=== PATIENT | male | born 1965 | race Caucasian/White ===

== ENCOUNTER → 2017-06-27 10:40 | Outpatient (CLI) | payer OTHER, SELFPAY ==
[2017-06-27 12:27] LABS: Anion Gap 9 (5-15); BUN 11 mg/dL (7-18); BUN/Creat Ratio 10.3 RATIO (10-20); Calcium,Total 8.7 mg/dL (8.5-10.1); Chloride 100 mmol/L (98-107); Creatinine, Serum 1.07 mg/dL (0.70-1.30); EST Glomerular Filtration Rate 77 mL/min (>60); Est Glom Filt Rate - Afr Amer 93 mL/min (>60); Glucose 352 mg/dL (70-110); Potassium 3.9 mmol/L (3.5-5.1); Sodium Level 136 mmol/L (136-145)
[2017-06-27 12:30] LABS: Absolute Lymphocyte Count 1.69 X10^3/ul (0.83-4.51); Absolute Neutrophil Count 5.8 X10^3/uL (2.0-7.7); Basophil# 0.02 X10^3/uL; Basophil% 0.2 % (0-1); Eosinophil# 0.05 X10^3/uL; Eosinophils% 0.6 % (0-5); Hematocrit 45.8 % (40-54); Hemoglobin 16.3 g/dl (13.0-16.5); Lymphocyte # 1.69 X10^3/ul (4.0); Lymphocyte % 20.9 % (19-41); Mean Corp Hgb Conc 35.6 g/gl (32-36); Mean Corpuscular Hgb 29.4 pg (27.0-32.0); Mean Corpuscular Volume 82.7 fL (80-94); Mean Platelet Vol. 9.5 fl (6.2-12.0); Monocyte# 0.54 X10^3/uL; Monocyte% 6.7 % (0-10); Neutrophil # 5.76 X10^3/uL (2.7-7.7); Neutrophil % 71.2 % (47-70); Platelet Count 258 K/mm3 (150-450); RBC Distribution Width CV 13.5 % (11.6-14.6); RBC Distribution Width SD 40.4 fl (35.1-43.9); Red Blood Count 5.54 M/mm3 (4.6-6.2); White Blood Count 8.1 K/mm3 (4.4-11.0)
[2017-06-27 12:35] LABS: POSITIVE COUNT NO; POSITIVE DIFFERENTIAL NO; POSITIVE MORPHOLOGY NO
[2017-06-28 12:52] LABS: Carcinoembryonic Antigen 3.4 ng/mL (0.0-4.7)
== END ==
PROVIDERS: Family Provider Family Medicine; PCP Family Medicine; Visit Provider Surgery
DX: C18.9 Malignant neoplasm of colon, unspecified (principal)
CPT/HCPCS: 36415; 80048; 82378; 85025

== ENCOUNTER 2017-07-07 10:52 | Inpatient (IN) | payer OTHER, SELFPAY ==
--- NOTE | 2017-07-02 07:11 | EKG12_ITS ---
Test Reason : MI OP Blood Pressure : / mmHG Vent. Rate : 080 BPM Atrial Rate : 080 BPM P-R Int : 160 ms QRS Dur : 092 ms QT Int : 370 ms P-R-T Axes : 060 045 028 degrees QTc Int : 426 ms Normal sinus rhythm with sinus arrhythmia Normal ECG Confirmed by SAUMYA ALVARADO ([id number]), proposal editor SHAQUILLE LEE ([id number]) on 07/03/2017 11:38:26 AM Referred By: Wayne Turner Confirmed By:SAUMYA ALVARADO
[2017-07-02 08:22] LABS: Glucose 227 mg/dL (70-110)
[2017-07-02 08:33] LABS: Hemoglobin A1c 9.8 % (4.2-6.3)
[2017-07-07] VITALS (12 sets, daily range): BP systolic 120–149; BP diastolic 76–89; PULSE 73–99; RESP 14–19; TEMP 36.4–36.8; O2SAT 92–99; BMI 33.7
[2017-07-07 11:25] LABS: Bedside Glucose 214 mg/dL (70-110)
--- NOTE | 2017-07-07 12:55 | PCM.OPRPT ---
Problem List (1) Colon cancer Status: Acute Qualifiers: Colon location: sigmoid Qualified Code(s): C18.7 - Malignant neoplasm of sigmoid colon Report of Operation Date of Procedure: 07/07/17 Pre-Operative Diagnosis: Colon cancer Post-Operative Diagnosis: Same Surgery/Procedure Performed:: Cystoscopy and left ureteral catheter placement Description of Surgical Findings:: 51-year-old male taken back to the operating room at the smooth induction of general anesthesia he was placed in dorsal lithotomy position, the penis and testicles were prepped and draped in usual sterile fashion went into the bladder with a 21 [place]ic rigid cystourethroscope. The entire length of the urethra is normal the prostate was normal. Into the bladder no tumors or stones are seen in the bladder. The left and right ureteral orifices were normal. I think cannulated the left ureteral orifice and advanced a wire up into the left kidney left the Pollack catheter in place. I then placed a Soto catheter. Patient was then turned over to the surgeon. Type of Anesthesia:: General Drains: left ureteral catheter. - Admit VTE Documentation VTE Present on Admission: No VTE Mechan Device Prophylaxis: SCD's
[2017-07-07] MEDS: Bupivacaine Mpf 0.5% 30 ML VIAL (16:45)
--- NOTE | 2017-07-07 17:56 | PCM.OPRPT ---
Problem List (1) Colon cancer Status: Acute Qualifiers: Colon location: sigmoid Qualified Code(s): C18.7 - Malignant neoplasm of sigmoid colon Report of Operation Date of Procedure: 07/07/17 Pre-Operative Diagnosis: Colon cancer of the sigmoid Post-Operative Diagnosis: Same Surgery/Procedure Performed:: Laparoscopic sigmoid colectomy with primary anastomosis and splenic flexure release Type of Anesthesia:: General Specimen's removed: Sigmoid colon with stitch marking the proximal margin. Anastomotic donuts Estimated Blood Loss (mL): 50 Fluids Replaced: 3000 Description of Procedure: The patient was brought back to the operating room and general anesthesia was induced. The patient was placed in lithotomy position and urology placed a left ureteral stent. Next the rectum was lavaged with iodine and saline. Next the patient's perineal area as well as his abdomen was prepped and draped in usual sterile fashion. Using the Visiport 5 mm technique the abdomen was entered in the right upper quadrant. The abdomen was then insufflated to 15 mmHg and the camera was placed through this port. The abdomen was inspected. The liver looked good with no signs of metastasis. There is no carcinomatosis. The tattoo was identifiable in the sigmoid colon. The patient had adhesions to his prior mesh umbilical hernia repair. An 11 mm port was placed superior to the umbilicus. Electrocautery was used to separate the omental adhesions to the prior mesh. Next the patient was placed in steep Trendelenburg position and tilted to the right. The distal sigmoid was traced back until the tattoo was reached in the proximal sigmoid. The patient had a very redundant sigmoid colon. The sigmoid colon was elevated and electrocautery was used to make a window in the peritoneal reflection. The mesentery to the sigmoid colon was dissected but I was unable to find the ureter from this approach. The lateral attachment of the sigmoid colon was then divided and I was able to identify the ureter from this approach. The ureter was identified along its length and spared. Once the sigmoid colon was medialized the dissection was carried upward onto the descending colon. The colon was then dissected free at the sacral promontory. A 60 millimeter stapler was used to fire across the rectosigmoid junction. Next the colon was elevated and Enseal was used to take down the mesenteric attachments at the base of the mesentery. Once the inferior mesenteric artery was identified it was clipped with 10 mm hemo-lock clips and divided. Hemostasis was good. The dissection was taken upward until there was a good margin from the colon cancer. At this point the proximal margin would not reach into the pelvis so a splenic flexure release was performed. Downward pressure was based on the splenic flexure as electrocautery was used to separate the peritoneum and the splenic flexure was medialized. This allowed the proximal margin to be easily moved into the pelvis. I did have to place one 5 mm port in the left upper quadrant to facilitate the flexure mobilization. Next a small midline incision was made in the suprapubic space and deepened to the internal abdomen. A wound protector was placed in the wound and the specimen was brought through the wound. Once the proximal margin was identified it was cleaned and taken with scissors. Any remaining vascular attachments were taken with Enseal. The specimen was then sent for pathology. Next the descending colon was sized with sizers and a 29 EEA stapler was selected. The anvil was placed into the descending colon and a pursestring was created with Prolene suture. The descending colon and anvil were then allowed back into the abdomen and the wound protector was tied shut with a Dacron tape and the abdomen was reinsufflated. The abdomen was checked for hemostasis. Next the descending colon was checked to ensure that it was not twisted. The 29 EEA stapler was then placed through the rectum into the rectal staple line and the point was deployed. This was attached to the anvil and the stapler was closed. The stapler was then fired. The stapler was removed and air was insufflated into the colon with pressure being held over the descending colon until it inflated and air was coming out around the rigid scope. There was no air leak with water in the pelvis. Next the abdomen was irrigated and suctioned. There was good laxity of the descending colon to the pelvis and the anastomosis was under no tension. All of the ports were removed under direct visualization and had good hemostasis. The 11 mm ports were closed with 0 Vicryl suture and the midline incision was closed with 2 #1 PDS is meeting in the middle running in a continuous fashion. Next all ports were irrigated and the skin was closed with interrupted 4-0 Monocryl sutures, Steri-Strips, and bandages. The patient was taken to PACU at the end of the case. The patient tolerated the procedure well. The Soto remained in place but the ureter stent was removed at the end of the case. - Admit VTE Documentation VTE Mechan Device Prophylaxis: SCD's
[2017-07-07 18:21] LABS: Bedside Glucose 227 mg/dL (70-110)
[2017-07-07] MEDS: 0.9% NaCl Peripheral Flush Adult/Peds IV (20:22)
[2017-07-07] MEDS: HYDROmorphone 1 MG/ML Syringe IV ×2 (20:22→22:35)
[2017-07-07] MEDS: Lactated Ringers 1,000 ML 150 ML IV (22:19)
[2017-07-07] MEDS: Ketorolac 15 MG/ML Vial IV (22:20)
--- NOTE | 2017-07-08 | COL._PTH ---
PATIENT: SAUMYA LOW LOC: MS3 U#:[id number] AGE/SX: 51/M ROOM: NC305 RE07/07/[address]: Dr. Wayne Turner MD : 1965 BED: 1 DIS: 07/10/2017 SPEC #: [id number] RECD: 07/08/17 14:21 STATUS: JEAN PAUL CHRISTINA #: [id number] DAGOBERTO: 07/08/17 00:[address]: Wayne Turner DEPT: SURGICAL PATHOLOGY RECD BY: Deon Mcmanus ENTERED: 07/08/17 14:23 SP TYPE: COLON OTHR DR: Dr. Misha Schilling MD Tissues: A - Colon, NOS B - Colon Donuts C - Colon Donuts Procedures: Surgery Specimen Level III Surgery Specimen Level HEADER OPERATION: Laparoscopic sigmoid colectomy PRE-OP DIAGNOSIS: Malignant neoplasm of sigmoid colon TISSUE SUBMITTED: A ? Sigmoid colon, stitch valencia proximal margin, B ? Proximal donut (sigmoid), C ? Distal donut (rectal) MICROSCOPIC DIAGNOSIS A. Sigmoid colon, colectomy: Invasive moderately to poorly differentiated adenocarcinoma. Four out of 20 lymph nodes positive for metastatic carcinoma. B. Proximal donut: Colonic donut, no pathologic diagnosis. C. Distal donut: Colonic donut, no pathologic diagnosis. COLON CANCER SUMMARY: Specimen ? sigmoid colon Procedure ? sigmoidectomy Specimen length ? 23 cm Tumor site ? sigmoid colon Tumor size ? 2.5 x 2 x 0.8 cm Macroscopic tumor perforation ? not identified Histologic type - adenocarcinoma Histologic grade ? low grade (moderately differentiated). Histologic features suggestive of Microsatellite Instability: Intratumoral lymphocytic response (tumor infiltrating the lymphocytes) ? mild to moderate Peritumoral lymphocytic response (Crohn-like) - mild to moderate Tumor subtype and differentiation ? high histologic grade (poorly differentiated) ? present ~5% Mucinous tumor component and medullary component ? not seen Microscopic tumor extension ? Tumor invades muscularis propria. Margins ? margins uninvolved by invasive carcinoma. The tumor is 4.2 cm away from the closest proximal axial margin. Treatment effect ? no known presurgical therapy Lymph-Vascular invasion ? not identified Perineural invasion - not identified Tumor deposits - not identified Type of polyp in which invasive carcinoma arose - none identified Lymph nodes: Number of lymph nodes examined - 20 Number of lymph nodes involved - 4 Distant metastasis ? not applicable Additional pathologic findings ? none identified Ancillary studies: See microsatellite instability study by IHC ([id number]) for complete details. Negative (no loss of mismatch protein; no microsatellite instability detected). Immunohistochemistry Studies for Mismatch Repair Proteins: MLH1 - Intact nuclear positivity, tumor cells MSH2 - Intact nuclear positivity, tumor cells MSH6 - Intact nuclear positivity, tumor cells, focal and weak PMS2 - Intact nuclear positivity, tumor cells Mutational Analysis ? not performed PATHOLOGIC STAGE: pT2 pN2a Mx The above summary is in compliance with [employer] (CAP) Cancer Protocols Checklist and [place] [employer] Committee on Cancer (AJCC), Staging Manual, 8th Ed. SJ:stephanie 07/10/17 COMMENT A. The largest focus of metastatic carcinoma in the lymph node measures 0.8 cm in greatest dimension. Extranodal extension is not seen. Please make reference to previous specimen ([id number]) descending colon polyp at 40 cm with diagnosis of invasive well to moderate differentiated adenocarcinoma. This case is discussed with Dr. Turner on 07/10/17. Case has been reviewed in consultation with Dr. Watkins who concurs with the above diagnosis. IDC:AM MICROSCOPIC DESCRIPTION Slides are reviewed. GROSS DESCRIPTION A - Received in fixative is one container labeled with the patient's name and designated sigmoid colon. The specimen consists of a 23 cm segment of bowel with attached fibrofatty tissue. Located 4.2 cm from its closest (proximal) margin of excision is an indurated, firm, pacheco lesion measuring 2.5 x 2 x 0.8 cm. The serosa in the area of the mass is inked in black ink. Serial sections through the mass do not reveal involvement of bowel wall. Sections of the attached fibrofatty tissue reveal a number of nodules resembling lymph nodes. No other mucosal mass lesions are identified. The specimen is left in formalin for additional fixation. / AM:rg 07/08/17 Sections are submitted as follows: 1 ? proximal and distal mucosal margins (proximal inked), 2-5 ? tumor, totally submitted, 6 ? one bisected lymph node, 7-11, multiple lymph nodes in each cassette. / AM:rg 07/09/17 B - Received in fixative is one container labeled with the patient's name and designated proximal donut. The specimen consists of a mucosal donut measuring 1.8 cm in diameter and 1.5 cm in length. No mucosal mass lesions are identified. Oncology Coordinator sections are submitted in one cassette. / AM: 07/08/17 C - Received in fixative is one container labeled with the patient's name and designated distal donut. The specimen consists of a mucosal donut measuring 2.2 cm in diameter and 1 cm in length. No mucosal mass lesions are identified. Oncology Coordinator sections are submitted in one cassette. / AM: 07/08/17 TC:0 CPT: 54250, 81378 x2
--- NOTE | 2017-07-08 | IMM_PTH ---
PATIENT: SAUMYA LOW LOC: MS3 U#:[id number] AGE/SX: 51/M ROOM: MS305 RE07/07/[address]: Dr. Wayne Turner MD : 1965 BED: 1 DIS: 07/10/2017 SPEC #: [id number] RECD: 07/10/17 11:42 STATUS: JEAN PAUL REPuma #: [id number] DAGOBERTO: 07/08/17 00:[address]: Wayne Turner DEPT: IMMUNOHISTOCHEMISTRY RECD BY: Evelina Lloyd ENTERED: 07/10/17 11:47 SP TYPE: IMMUNO OTHR DR: Dr. Misha Schilling MD Tissues: A - Sigmoid colon biopsy Procedures: MSH2 (add) MLH-1 (add) MSH6 (add) Anti-PMS2 (add) TROY-2 (add) KI-67 (add) P53 (add) HER-2-FABRIZIO (initial) PHYSICIAN & INSTITUTION [place] [id number] SPECIMEN INFORMATION: Tissue Source: A ? Sigmoid colon Clinical Info: Malignant neoplasm of sigmoid colon Specimen Number: [id number] A2 CPT code: 92951, 23549 x7 METHODOLOGY: Deparaffinized sections of prefer/formalin-fixed tissue or PAP/DQ stained slides are incubated with monoclonal/polyclonal antibodies/oligonucleotide probes. Localization is made via biotin free immunoperoxidase method. Appropriate controls are performed and reacted as expected. Results on target cell population are indicated in the following table: RESULTS: ANTIBODY / CLONE RESULT Block A2 COLON CANCER PROFILE (Prognostic Markers) Ki-67 (30-9) positive, high P53 (DO-7) positive MSH2 (25D12) positive MSH6 (44) positive, focal and weak MLH-1 (M1) positive PMS2 ([id number]) positive TROY-2 (SP21) positive Her-2neu (CB11) negative These tests were developed and their performance characteristics determined by [facility]. They may not have been cleared or approved by the U.S. Food and Drug Administration. The FDA has determined that such clearance or approval is not necessary. INTERPRETATION: Sigmoid colon, colectomy: Invasive adenocarcinoma. Result of Microsatellite Instability Study: Negative (no loss of mismatch protein; no microsatellite instability detected). SJ:stephanie 07/11/17
[2017-07-08] MEDS: HYDROmorphone 1 MG/ML Syringe IV ×2 (00:37→09:52)
[2017-07-08] MEDS: Lactated Ringers 1,000 ML 150 ML IV ×2 (00:37→05:10)
[2017-07-08 00:41] VITALS: BP 117/72; PULSE 99; RESP 19; TEMP 36.4; O2SAT 95
[2017-07-08 00:51] LABS: Bedside Glucose 245 mg/dL (70-110)
[2017-07-08] MEDS: Ketorolac 15 MG/ML Vial IV ×3 (05:10→21:32)
[2017-07-08 05:17] VITALS: BP 129/71; PULSE 65; RESP 18; TEMP 36.4; O2SAT 96
[2017-07-08 06:30] LABS: Absolute Lymphocyte Count 1.41 X10^3/ul (0.83-4.51); Absolute Neutrophil Count 8.7 X10^3/uL (2.0-7.7); Basophil# 0.02 X10^3/uL; Basophil% 0.2 % (0-1); Hematocrit 40.5 % (40-54); Hemoglobin 13.9 g/dl (13.0-16.5); Lymphocyte # 1.41 X10^3/ul (4.0); Lymphocyte % 12.6 % (19-41); Mean Corp Hgb Conc 34.3 g/gl (32-36); Mean Corpuscular Hgb 29.1 pg (27.0-32.0); Mean Corpuscular Volume 84.9 fL (80-94); Monocyte# 1.08 X10^3/uL; Monocyte% 9.7 % (0-10); Neutrophil # 8.66 X10^3/uL (2.7-7.7); Neutrophil % 77.3 % (47-70); Platelet Count 214 K/mm3 (150-450); RBC Distribution Width CV 13.5 % (11.6-14.6); RBC Distribution Width SD 41.5 fl (35.1-43.9); Red Blood Count 4.77 M/mm3 (4.6-6.2); White Blood Count 11.2 K/mm3 (4.4-11.0)
[2017-07-08 06:38] LABS: POSITIVE COUNT NO; POSITIVE DIFFERENTIAL NO; POSITIVE MORPHOLOGY NO
[2017-07-08 06:50] LABS: Anion Gap 8 (5-15); BUN 14 mg/dL (7-18); Calcium,Total 8.2 mg/dL (8.5-10.1); Chloride 106 mmol/L (98-107); Creatinine, Serum 0.82 mg/dL (0.70-1.30); EST Glomerular Filtration Rate 104 mL/min (>60); Est Glom Filt Rate - Afr Amer 125 mL/min (>60); Estimated Creatinine Clearance 107.57 ml/min; Glucose 188 mg/dL (74-106); Magnesium 1.9 mg/dL (1.6-2.6); Potassium 4.2 mmol/L (3.5-5.1); Sodium Level 140 mmol/L (136-145)
[2017-07-08 07:05] LABS: Bedside Glucose 193 mg/dL (70-110)
--- NOTE | 2017-07-08 08:00 | PCM.PN.SRG ---
Patient Problems: Active and Suspected Problems (Last Reviewed 06/27/17 @ 08:47 by Briana Foster) Colon cancer (Acute) Subjective: Patient is doing well this morning. He reports that his pain is well controlled with pain medications. He did have vertigo after surgery. - Physical Exam General: Alert, Oriented x3, Cooperative, No apparent distress HEENT: Atraumatic Lungs: Normal air movement Cardiovascular: Regular rate, Regular Rhythm Abdomen: Soft, Non-Distended, Tender - Mild appropriate tenderness., - - Incisions are clean dry and intact. Extremities: No clubbing Skin: No rashes Musculoskeletal: No Muscle Wasting Neurological: Cranial nerves II-XII grossly intact Psych/Mental Status: Normal Affect Vital Signs Temp Pulse Resp BP Pulse Ox 97.6 F L 65 18 129/71 H 96 07/08/17 05:17 07/08/17 05:17 07/08/17 05:17 07/08/17 05:17 07/08/17 05:17 Oxygen Flow Rate 15 Oxygen Delivery Method Room Air Weight: 235 lb 7.259 oz Body Mass Index (BMI) 33.7 Finger Stick Blood Glucose 227 Intake and Output for Last 24 Hours 07/06/17 07/07/17 07/08/17 23:59 23:59 23:59 Intake Total 3200 / 3200 1764 / 1764 Output Total 450 / 450 750 / 750 Balance 2750 / 2750 1014 / 1014 Laboratory Tests Past 24 Hrs 07/08/17 07/08/17 05:53 05:53 WBC 11.2 H RBC 4.77 Hgb 13.9 Hct 40.5 MCV 84.9 MCH 29.1 MCHC 34.3 RDW 13.5 RDW Differential 41.5 Plt Count 214 MPV 9.0 Immature Gran % (Auto) 0.200 Neut % (Auto) 77.3 H Lymph % (Auto) 12.6 L [place] % (Auto) 9.7 Eos % (Auto) 0.0 Baso % (Auto) 0.2 Absolute Neuts (auto) 8.7 H Absolute Lymphs (auto) 1.41 Total Counted Not Reportable Sodium 140 Potassium 4.2 Chloride 106 Carbon Dioxide 26.0 Anion Gap 8 BUN 14 Creatinine 0.82 Estim Creat Clear Calc 107.57 Est GFR (MDRD) Af Amer 125 Est GFR (MDRD) Non-Af 104 BUN/Creatinine Ratio 17.0 Glucose 188 H Calcium 8.2 L Phosphorus 4.0 Magnesium 1.9 POC Glucose 07/08/17 07/08/17 07/07/17 05:07 00:33 18:11 POC Glucose 193 H 245 H 227 H 07/07/17 11:14 POC Glucose 214 H Assessment/Plan Active and Suspected Problems (Last Reviewed 06/27/17 @ 08:47 by Briana Foster) Colon cancer (Acute) 51-year-old male status post laparoscopic sigmoid colectomy for sigmoid colon cancer 1. The patient's urine output picked up overnight. Is also much more clear this morning. I will DC his Soto. 2. Continue pain control, PPI, SCDs, n.p.o./IV fluids. I will start Lovenox today. Await bowel function. 3. Encouraged ambulation and incentive spirometer use. Wayne Turner MD Pager: [facility] [address] [place] [address] Office:
--- NOTE | 2017-07-08 08:03 | PN.SURG_ITS ---
Patient Problems: Active and Suspected Problems (Last Reviewed 06/27/17 @ 08:47 by Briana Foster) Colon cancer (Acute) Subjective: Patient is doing well this morning. He reports that his pain is well controlled with pain medications. He did have vertigo after surgery. - Physical Exam General: Alert, Oriented x3, Cooperative, No apparent distress HEENT: Atraumatic Lungs: Normal air movement Cardiovascular: Regular rate, Regular Rhythm Abdomen: Soft, Non-Distended, Tender - Mild appropriate tenderness., - - Incisions are clean dry and intact. Extremities: No clubbing Skin: No rashes Musculoskeletal: No Muscle Wasting Neurological: Cranial nerves II-XII grossly intact Psych/Mental Status: Normal Affect Vital Signs Temp Pulse Resp BP Pulse Ox 97.6 F L 65 18 129/71 H 96 07/08/17 05:17 07/08/17 05:17 07/08/17 05:17 07/08/17 05:17 07/08/17 05:17 Oxygen Flow Rate 15 Oxygen Delivery Method Room Air Weight: 235 lb 7.259 oz Body Mass Index (BMI) 33.7 Finger Stick Blood Glucose 227 Intake and Output for Last 24 Hours 07/06/17 07/07/17 07/08/17 23:59 23:59 23:59 Intake Total 3200 / 3200 1764 / 1764 Output Total 450 / 450 750 / 750 Balance 2750 / 2750 1014 / 1014 Laboratory Tests Past 24 Hrs 07/08/17 07/08/17 05:53 05:53 WBC 11.2 H RBC 4.77 Hgb 13.9 Hct 40.5 MCV 84.9 MCH 29.1 MCHC 34.3 RDW 13.5 RDW Differential 41.5 Plt Count 214 MPV 9.0 Immature Gran % (Auto) 0.200 Neut % (Auto) 77.3 H Lymph % (Auto) 12.6 L [place] % (Auto) 9.7 Eos % (Auto) 0.0 Baso % (Auto) 0.2 Absolute Neuts (auto) 8.7 H Absolute Lymphs (auto) 1.41 Total Counted Not Reportable Sodium 140 Potassium 4.2 Chloride 106 Carbon Dioxide 26.0 Anion Gap 8 BUN 14 Creatinine 0.82 Estim Creat Clear Calc 107.57 Est GFR (MDRD) Af Amer 125 Est GFR (MDRD) Non-Af 104 BUN/Creatinine Ratio 17.0 Glucose 188 H Calcium 8.2 L Phosphorus 4.0 Magnesium 1.9 POC Glucose 07/08/17 07/08/17 07/07/17 05:07 00:33 18:11 POC Glucose 193 H 245 H 227 H 07/07/17 11:14 POC Glucose 214 H Assessment/Plan Active and Suspected Problems (Last Reviewed 06/27/17 @ 08:47 by Briana Foster) Colon cancer (Acute) 51-year-old male status post laparoscopic sigmoid colectomy for sigmoid colon cancer 1. The patient's urine output picked up overnight. Is also much more clear this morning. I will DC his Soto. 2. Continue pain control, PPI, SCDs, n.p.o./IV fluids. I will start Lovenox today. Await bowel function. 3. Encouraged ambulation and incentive spirometer use. Wayne Turner MD Pager: [facility] [address] [place] [address] Office:
[2017-07-08 08:50] VITALS: BP 139/68; PULSE 82; RESP 18; TEMP 36.6; O2SAT 96
[2017-07-08] MEDS: Pantoprazole Sodium 40 MG Tablet PO (09:45)
[2017-07-08] MEDS: 0.9% NaCl Peripheral Flush Adult/Peds IV ×2 (09:52→21:32)
--- NOTE | 2017-07-08 11:43 | CASEMGMT ---
RN MI Face to Face with patient for initial transition planning/care coordination assessment. RN CM introduced self and role at [facility]. Patient sitting in chair, alert and oriented with at bedside. Patient willing to participate in assessment and is able to answer all questions appropriately. Care providers, pharmacy, and demographics verified. See link attached. Patient wishes to discharge home, denies need for home health at this time. Patient states he has no further needs or concerns at this time. CM to follow for discharge planning needs that may arise. Disposition Plan: Patient to discharge home with family support and follow-up plan in place.
[2017-07-08] MEDS: Lactated Ringers 1,000 ML 100 ML IV ×2 (11:55→21:32)
[2017-07-08] MEDS: Enoxaparin 40 MG/0.4 ML Syringe SC (12:03)
[2017-07-08 12:11] LABS: Bedside Glucose 177 mg/dL (70-110)
[2017-07-08 14:14] VITALS: BP 132/82; PULSE 68; RESP 18; TEMP 36.6; O2SAT 98
[2017-07-08 18:19] VITALS: BP 138/84; PULSE 65; RESP 18; TEMP 37.3; O2SAT 98
[2017-07-08 19:15] LABS: Bedside Glucose 144 mg/dL (70-110)
[2017-07-08] MEDS: HYDROmorphone HCL 0.5 MG/0.5 ML SYRINGE IV ×2 (20:17→22:23)
[2017-07-08 20:27] VITALS: BP 150/85; PULSE 60; RESP 16; TEMP 36.6; O2SAT 100
[2017-07-09 00:35] VITALS: BP 132/76; PULSE 94; RESP 18; TEMP 36.9; O2SAT 97
--- NOTE | 2017-07-09 00:40 | NURSING ---
pt attempted to use urinal. no results at this time.
[2017-07-09] MEDS: Ketorolac 15 MG/ML Vial IV ×2 (06:08→13:53)
[2017-07-09] MEDS: Lactated Ringers 1,000 ML 100 ML IV ×2 (06:09→16:25)
[2017-07-09] MEDS: Enoxaparin 40 MG/0.4 ML Syringe SC (06:09)
[2017-07-09 06:13] VITALS: BP 151/88; PULSE 71; RESP 17; TEMP 36.9; O2SAT 100
[2017-07-09 06:21] LABS: Bedside Glucose 126 mg/dL (70-110)
[2017-07-09 06:21] LABS: Bedside Glucose 122 mg/dL (70-110)
[2017-07-09 06:41] LABS: Absolute Lymphocyte Count 1.65 X10^3/ul (0.83-4.51); Absolute Neutrophil Count 6.1 X10^3/uL (2.0-7.7); Basophil# 0.03 X10^3/uL; Basophil% 0.3 % (0-1); Eosinophil# 0.04 X10^3/uL; Eosinophils% 0.5 % (0-5); Hematocrit 38.1 % (40-54); Hemoglobin 13.3 g/dl (13.0-16.5); Lymphocyte # 1.65 X10^3/ul (4.0); Lymphocyte % 18.9 % (19-41); Mean Corp Hgb Conc 34.9 g/gl (32-36); Mean Corpuscular Hgb 29.6 pg (27.0-32.0); Mean Corpuscular Volume 84.9 fL (80-94); Mean Platelet Vol. 9.3 fl (6.2-12.0); Monocyte# 0.86 X10^3/uL; Monocyte% 9.9 % (0-10); Neutrophil # 6.12 X10^3/uL (2.7-7.7); Neutrophil % 70.2 % (47-70); Platelet Count 214 K/mm3 (150-450); RBC Distribution Width CV 13.6 % (11.6-14.6); RBC Distribution Width SD 41.2 fl (35.1-43.9); Red Blood Count 4.49 M/mm3 (4.6-6.2); White Blood Count 8.7 K/mm3 (4.4-11.0)
[2017-07-09 06:44] LABS: POSITIVE COUNT NO; POSITIVE DIFFERENTIAL NO; POSITIVE MORPHOLOGY NO
[2017-07-09 06:46] LABS: Anion Gap 8 (5-15); BUN 11 mg/dL (7-18); BUN/Creat Ratio 15.8 RATIO (10-20); Calcium,Total 8.3 mg/dL (8.5-10.1); Chloride 107 mmol/L (98-107); EST Glomerular Filtration Rate 126 mL/min (>60); Est Glom Filt Rate - Afr Amer 152 mL/min (>60); Estimated Creatinine Clearance 126.01 ml/min; Glucose 132 mg/dL (74-106); Potassium 3.4 mmol/L (3.5-5.1); Sodium Level 139 mmol/L (136-145)
--- NOTE | 2017-07-09 07:58 | PCM.PN.SRG ---
Patient Problems: Active and Suspected Problems (Last Reviewed 06/27/17 @ 08:47 by Briana Foster) Colon cancer (Acute) Subjective: Patient reports he is doing well. His pain is well controlled and he is ambulating well. He reports he is passing gas with no nausea vomiting and no bloating. He needed straight catheterization twice last night but repeat on his own this morning. Urine output was adequate. - Physical Exam General: Alert, Oriented x3, Cooperative Lungs: Normal air movement Cardiovascular: Regular rate, Regular Rhythm Abdomen: Soft, Non Tender, Non-Distended, Passing Flatus, - - Incisions are clean dry and intact Extremities: No clubbing Skin: No rashes Musculoskeletal: No Tenderness to Palpation of Joints or Extremities Neurological: Cranial nerves II-XII grossly intact Psych/Mental Status: Normal Affect, Appropriate Vital Signs Temp Pulse Resp BP Pulse Ox 98.4 F 71 17 151/88 H 100 07/09/17 06:13 07/09/17 06:13 07/09/17 06:13 07/09/17 06:13 07/09/17 06:13 Oxygen Flow Rate 15 Oxygen Delivery Method Room Air Weight: 235 lb 7.259 oz Body Mass Index (BMI) 33.7 Finger Stick Blood Glucose 227 Intake and Output for Last 24 Hours 07/07/17 07/08/17 07/09/17 23:59 23:59 23:59 Intake Total 3200 / 3200 3961 / 3961 1244 / 1244 Output Total 450 / 450 1650 / 1650 325 / 325 Balance 2750 / 2750 2311 / 2311 919 / 919 Laboratory Tests Past 24 Hrs 07/09/17 07/09/17 05:58 05:58 WBC 8.7 RBC 4.49 L Hgb 13.3 Hct 38.1 L MCV 84.9 MCH 29.6 MCHC 34.9 RDW 13.6 RDW Differential 41.2 Plt Count 214 MPV 9.3 Immature Gran % (Auto) 0.200 Neut % (Auto) 70.2 H Lymph % (Auto) 18.9 L [place] % (Auto) 9.9 Eos % (Auto) 0.5 Baso % (Auto) 0.3 Absolute Neuts (auto) 6.1 Absolute Lymphs (auto) 1.65 Total Counted Not Reportable Sodium 139 Potassium 3.4 L Chloride 107 Carbon Dioxide 24.0 Anion Gap 8 BUN 11 Creatinine 0.70 Estim Creat Clear Calc 126.01 Est GFR (MDRD) Af Amer 152 Est GFR (MDRD) Non-Af 126 BUN/Creatinine Ratio 15.8 Glucose 132 H Calcium 8.3 L POC Glucose 07/09/17 07/09/17 07/08/17 06:06 00:29 19:10 POC Glucose 126 H 122 H 144 H 07/08/17 12:01 POC Glucose 177 H Assessment/Plan Active and Suspected Problems (Last Reviewed 06/27/17 @ 08:47 by Briana Foster) Colon cancer (Acute) 51-year-old male with colon cancer status post laparoscopic sigmoid colectomy, POD 2 1. Hypokalemia--replaced 2. Diabetes--adjust sliding scale as needed. 3. Patient is having bowel function with no nausea or vomiting and no bloating. I will start a clear liquid diet. I will also start stool softeners. 4. Continue Lovenox, SCDs, ambulation, incentive spirometer, Protonix. 5. If patient tolerates clear liquid diet I will advance his diet tomorrow and start p.o. pain medications. Wayne Turner MD Pager: [facility] [address], [address] [address] Office:
[2017-07-09] MEDS: 0.9% NaCl Peripheral Flush Adult/Peds IV ×3 (08:38→13:53)
[2017-07-09] MEDS: Pantoprazole Sodium 40 MG Tablet PO (09:21)
[2017-07-09] MEDS: Docusate Sodium 100 MG Capsule PO ×2 (09:21→21:50)
[2017-07-09 10:00] VITALS: BP 147/88; PULSE 90; RESP 18; TEMP 37.1; O2SAT 96
[2017-07-09] MEDS: Acetaminophen 325 MG Tablet 650 MG PO (10:04)
[2017-07-09 11:11] LABS: Bedside Glucose 141 mg/dL (70-110)
[2017-07-09 15:40] VITALS: BP 144/82; PULSE 93; RESP 18; TEMP 37; O2SAT 97
[2017-07-09 15:51] LABS: Bedside Glucose 114 mg/dL (70-110)
[2017-07-09 20:47] VITALS: BP 145/85; PULSE 88; RESP 18; TEMP 37; O2SAT 98
[2017-07-09 22:16] LABS: Bedside Glucose 117 mg/dL (70-110)
[2017-07-09] MEDS: DiphenhydrAMINE 25 MG Capsule PO (22:56)
[2017-07-09] MEDS: HYDROmorphone HCL 0.5 MG/0.5 ML SYRINGE IV (22:56)
[2017-07-10] MEDS: Lactated Ringers 1,000 ML 100 ML IV (02:02)
[2017-07-10 02:04] VITALS: BP 122/70; PULSE 67; RESP 16; TEMP 37; O2SAT 98
[2017-07-10] MEDS: Acetaminophen 325 MG Tablet 650 MG PO (04:05)
[2017-07-10] MEDS: HYDROmorphone HCL 0.5 MG/0.5 ML SYRINGE IV (04:06)
[2017-07-10 05:56] LABS: Absolute Lymphocyte Count 1.78 X10^3/ul (0.83-4.51); Absolute Neutrophil Count 4.7 X10^3/uL (2.0-7.7); Basophil# 0.01 X10^3/uL; Basophil% 0.1 % (0-1); Eosinophils% 1.4 % (0-5); Hematocrit 34.2 % (40-54); Lymphocyte # 1.78 X10^3/ul (4.0); Lymphocyte % 24.5 % (19-41); Mean Corp Hgb Conc 35.1 g/gl (32-36); Mean Corpuscular Hgb 29.5 pg (27.0-32.0); Mean Platelet Vol. 9.2 fl (6.2-12.0); Monocyte# 0.71 X10^3/uL; Monocyte% 9.8 % (0-10); Neutrophil # 4.65 X10^3/uL (2.7-7.7); Neutrophil % 64.1 % (47-70); Platelet Count 210 K/mm3 (150-450); RBC Distribution Width CV 13.4 % (11.6-14.6); RBC Distribution Width SD 40.1 fl (35.1-43.9); Red Blood Count 4.07 M/mm3 (4.6-6.2); White Blood Count 7.3 K/mm3 (4.4-11.0)
[2017-07-10 06:03] LABS: POSITIVE COUNT NO; POSITIVE DIFFERENTIAL NO; POSITIVE MORPHOLOGY NO
[2017-07-10] MEDS: Enoxaparin 40 MG/0.4 ML Syringe SC (06:09)
[2017-07-10 06:20] LABS: Anion Gap 10 (5-15); BUN 6 mg/dL (7-18); BUN/Creat Ratio 10.1 RATIO (10-20); Calcium,Total 7.9 mg/dL (8.5-10.1); Chloride 107 mmol/L (98-107); Creatinine, Serum 0.59 mg/dL (0.70-1.30); EST Glomerular Filtration Rate 152 mL/min (>60); Est Glom Filt Rate - Afr Amer 184 mL/min (>60); Estimated Creatinine Clearance 149.51 ml/min; Glucose 106 mg/dL (74-106); Potassium 3.4 mmol/L (3.5-5.1); Sodium Level 141 mmol/L (136-145)
[2017-07-10 06:21] LABS: Bedside Glucose 107 mg/dL (70-110)
[2017-07-10 08:00] VITALS: BP 143/91; PULSE 63; RESP 16; TEMP 36.7; O2SAT 97
--- NOTE | 2017-07-10 08:43 | PN.SURG_ITS ---
Patient Problems: Active and Suspected Problems (Last Reviewed 06/27/17 @ 08:47 by Briana Foster) Colon cancer (Acute) Subjective: Patient is doing well with no nausea or vomiting. He tolerated a clear liquid diet and is passing flatus. His abdominal pain is well controlled. - Physical Exam General: Alert, Oriented x3, Cooperative Lungs: Normal air movement Cardiovascular: Regular rate, Regular Rhythm Abdomen: Soft, Non Tender, Non-Distended, - - Incisions are clean dry and intact Vital Signs Temp Pulse Resp BP Pulse Ox 98.6 F 67 16 122/70 H 98 07/10/17 02:04 07/10/17 02:04 07/10/17 02:04 07/10/17 02:04 07/10/17 02:04 Oxygen Flow Rate 15 Oxygen Delivery Method Room Air Weight: 235 lb 7.259 oz Body Mass Index (BMI) 33.7 Finger Stick Blood Glucose 227 Intake and Output for Last 24 Hours 07/08/17 07/09/17 07/10/17 23:59 23:59 23:59 Intake Total 3961 / 3961 3642 / 3642 1486 / 1486 Output Total 1650 / 1650 2050 / 2050 1500 / 1500 Balance 2311 / 2311 1592 / 1592 -14 / -14 Laboratory Tests Past 24 Hrs 07/10/17 07/10/17 05:28 05:28 WBC 7.3 RBC 4.07 L Hgb 12.0 L Hct 34.2 L MCV 84.0 MCH 29.5 MCHC 35.1 RDW 13.4 RDW Differential 40.1 Plt Count 210 MPV 9.2 Immature Gran % (Auto) 0.100 Neut % (Auto) 64.1 Lymph % (Auto) 24.5 Forest % (Auto) 9.8 Eos % (Auto) 1.4 Baso % (Auto) 0.1 Absolute Neuts (auto) 4.7 Absolute Lymphs (auto) 1.78 Total Counted Not Reportable Sodium 141 Potassium 3.4 L Chloride 107 Carbon Dioxide 24.0 Anion Gap 10 BUN 6 L Creatinine 0.59 L Estim Creat Clear Calc 149.51 Est GFR (MDRD) Af Amer 184 Est GFR (MDRD) Non-Af 152 BUN/Creatinine Ratio 10.1 Glucose 106 Calcium 7.9 L POC Glucose 07/10/17 07/09/17 07/09/17 06:12 21:49 15:44 POC Glucose 107 117 H 114 H 07/09/17 11:00 POC Glucose 141 H Assessment/Plan Active and Suspected Problems (Last Reviewed 06/27/17 @ 08:47 by Briana Foster) Colon cancer (Acute) 51-year-old male with colon cancer status post laparoscopic sigmoid colectomy POD 3 1. Patient tolerated clear liquid diet and still passing flatus with no nausea or vomiting or bloating. I will advance him to a soft diet. 2. Hypokalemia--replaced 3. Stop IV fluids. Patient is having good urine output and tolerating a diet. 4. Anticipate discharge this afternoon or tomorrow morning if the patient tolerates a regular diet and his pain is well controlled on p.o. medications only. Wayne Turner MD Pager: [facility] [address] [place] [address] Office:
[2017-07-10] MEDS: Docusate Sodium 100 MG Capsule PO (09:42)
[2017-07-10] MEDS: Pantoprazole Sodium 40 MG Tablet PO (09:43)
[2017-07-10] MEDS: oxyCODONE 5 MG Tablet PO ×2 (09:59→16:23)
[2017-07-10 11:01] LABS: Bedside Glucose 219 mg/dL (70-110)
[2017-07-10 14:00] VITALS: BP 145/89; PULSE 76; RESP 16; TEMP 36.9; O2SAT 100
--- NOTE | 2017-07-10 15:19 | PCM.DC.GS ---
Discharge Diet: Light diet - advance as tolerated Discharge Activity: May Not Drive - No driving for 4 days or while taking narcotic pain meds. May shower in (days): 1 Lifting Restrictions: 20 lbs for 2 weeks Call your doctor if your incision/area has: Continuous Slow Oozing, Sudden Increased Bleeding, Increased Pain/ Swelling, Increased Redness, Foul Smelling Discharge, Swelling at the incision site Call your doctor if you observe: Fever of 101 or Higher Suture Line Care: Avoid Pulling/Pushing, Avoid Pinching/Bending Cleanse incision/area with: Soap & Water Allergies/Adverse Reactions: Allergies No Known Allergies Allergy (Verified 06/30/17 12:13) Medications to take at Discharge Docusate Sodium [Colace] 100 mg PO BID #20 cap 07/10/17 Oxycodone [Oxyir] 5 - 10 mg PO Q4H PRN PRN 7 Days #40 tablet 07/10/17 The following prescriptions were given: Oxycodone [Oxyir] 5 - 10 mg PO Q4H PRN PRN 7 Days #40 tablet PRN Reason: Mod-Severe Pain (4-03/11) Docusate Sodium [Colace] 100 mg PO BID #20 cap Primary Care Physician: Misha Schilling MD [Primary Care Provider] - Please Follow Up With: Wayne Turner MD When: call tomorrow to make 2 week follow up appt [phone]
--- NOTE | 2017-07-10 15:48 | PCM.DC.SUM ---
Discharge Date and Diagnosis - Problem List Patient Problems: Active and Suspected Problems (Last Reviewed 06/27/17 @ 08:47 by Briana Foster) Colon cancer (Acute) Date of Admission: 07/07/17 Date of Discharge: 07/10/17 - Primary Discharge Diagnosis Active and Suspected Problems (Last Reviewed 06/27/17 @ 08:47 by Briana Foster) Colon cancer (Acute) Hospital Course and Treatment Operations: colectomy Procedures: None Summary of Care Provided: The patient is a 51 year old M who was admitted to the hospital after a laparoscopic sigmoid colectomy on 07/07. The following day he was bolused and straight catheterized but then he was having good urine output. On his second postoperative day he was tolerating a clear liquid diet and was passing flatus. On his third postoperative day advance him to a regular diet and he tolerated this well and had some small bowel movements. He was discharged home in stable condition on postop day 3. Discharge Diet: Light diet - advance as tolerated Discharge Activity: May Not Drive - No driving for 4 days or while taking narcotic pain meds. May shower in (days): 1 Call your doctor if your incision/area has: Continuous Slow Oozing, Sudden Increased Bleeding, Increased Pain/ Swelling, Increased Redness, Foul Smelling Discharge, Swelling at the incision site Call your doctor if you observe: Fever of 101 or Higher Suture Line Care: Avoid Pulling/Pushing, Avoid Pinching/Bending Cleanse incision/area with: Soap & Water Home Medications: Medications to take at Discharge Docusate Sodium [Colace] 100 mg PO BID #20 cap 07/10/17 Oxycodone [Oxyir] 5 - 10 mg PO Q4H PRN PRN 7 Days #40 tablet 07/10/17 Following Prescrptions Were Given to Patient: Oxycodone [Oxyir] 5 - 10 mg PO Q4H PRN PRN 7 Days #40 tablet PRN Reason: Mod-Severe Pain (-03/11) Docusate Sodium [Colace] 100 mg PO BID #20 cap Primary Care Physician: Misha Schilling MD [Primary Care Provider] - Please Follow Up With: Wayne Turner MD When: call tomorrow to make 2 week follow up appt [phone] Meaningful Use Info Meaningful Use Diagnoses (Choose all that apply): None applicable
[2017-07-10 15:51] LABS: Bedside Glucose 180 mg/dL (70-110)
== END 2017-07-10 16:35 | disposition home or self-care (01) | DRG 331 ==
LOC: ACINP 10:54 → MS3 11:37
PROVIDERS: Admitting Provider Surgery; Family Provider Family Medicine; PCP Family Medicine; Visit Provider Surgery
PROC: 0DBN4ZZ Excision of Sigmoid Colon, Percutaneous Endoscopic Approach (ICD-10-PCS; CPT 44204; principal; 2017-07-07 12:00)
DX: C18.7 Malignant neoplasm of sigmoid colon (principal); E11.9 Type 2 diabetes mellitus without complications; E87.6 Hypokalemia
CPT/HCPCS: 36415; 80048; 82947; 82962; 83036; 83735; 84100; 85025; 86850; 86900; 88304; 88309; 88341; 88342; 93005; J7040; J7120; A4216; C1769; J2405

== ENCOUNTER 2017-07-25 08:12 | Day surgery (SDC) | payer OTHER, SELFPAY ==
[2017-07-25] VITALS (7 sets, daily range): BP systolic 100–125; BP diastolic 64–74; PULSE 80–92; RESP 16; TEMP 36.1–37; O2SAT 93–100; BMI 33.3
[2017-07-25 08:56] LABS: Bedside Glucose 168 mg/dL (70-110)
[2017-07-25] MEDS: Cefazolin 2 GM in 0.9% Normal Saline 100 ML IV (09:28)
[2017-07-25] MEDS: Bupiv/Epi 0.5% Mpf 30 ML Vial (09:55)
--- NOTE | 2017-07-25 10:17 | PCM.OPRPT ---
Problem List (1) Encounter for adjustment or management of vascular access device Status: Acute Report of Operation Date of Procedure: 07/25/17 Pre-Operative Diagnosis: Stage III colon cancer need for vascular access device Post-Operative Diagnosis: Same Surgery/Procedure Performed:: Right chest port placement using right IJ with ultrasound and fluoroscopy guidance Description of Procedure: After obtaining informed consent patient was brought back to the operating room MAC anesthesia was induced and the right chest and neck were prepped in normal sterile fashion. Ultrasound was used to evaluate both IJ is in the right IJ was selected. Next, using a needle, the right IJ was accessed and a guidewire was passed on into the superior vena cava under fluoroscopy guidance. A small incision was made over the puncture site and the dilator introducer was placed over the guidewire. Next this was capped and the pocket was made for the port. 1% lidocaine with epinephrine was injected in the proposed port site. An incision was made with scalpel. Electrocautery was used to make a pocket under the skin and subcutaneous tissue. Hemostasis was obtained. Next, the catheter was tunneled up to the neck incision site and placed through the introducer. The peel-away introducer was removed and the position of the catheter was confirmed on fluoroscopy. Next, the catheter was trimmed and attached to the port with the locking device. Interrupted 2-0 PDS were used to anchor the port to the chest wall and then the port was placed inside the pocket. The pocket was then flushed with saline and the port irrigated with saline. There was good blood return and the port flushed easily. Next, heparin was injected into the port. The skin was closed with subcutaneous interrupted 3-0 Vicryl sutures and interrupted skin 3-0 nylon sutures. A single 3-0 Vicryl sutures placed under the skin at the neck incision site. Steri-Strips were placed as well as op sites. Patient tolerated procedure well, was taken to PACU in stable condition. Chest x-ray will be obtained. Grafts/Implants Used: 8 [place] PowerPort - Admit VTE Documentation VTE Mechan Device Prophylaxis: SCD's
--- NOTE | 2017-07-25 10:19 | DCINST_ITS ---
Discharge Diet: No Restrictions - Pain medication may cause nausea. You should typically eat light foods as you take your pain medication. Discharge Activity: Return to Normal Activity, May Shower - with your bandage in place in 1-2 days after surgery. DO NOT SHOWER WHEN YOUR PORT IS ACCESSED. Call your doctor if your incision/area has: Continuous Slow Oozing, Sudden Increased Bleeding, Increased Pain/ Swelling, Increased Redness Call your doctor if you observe: Fever of 101 or Higher Remove Dressing in (days):: 3 - When you remove the bandage, leave the steri- strips intact until they fall off. Allergies/Adverse Reactions: Allergies No Known Allergies Allergy (Verified 07/24/17 14:02) Medications to take at Discharge Acetaminophen [Tylenol Extra Strength] 500 mg PO Q4H PRN PRN 07/16/17 Metformin HCl [Glucophage] 1,000 mg PO BIDCM 07/16/17 Primary Care Physician: Misha Schilling MD [Primary Care Provider] - Please Follow Up With: Wayne Turner MD When: call to make 10 day suture removal appt [phone]
--- NOTE | 2017-07-25 10:25 | RAD_ITS ---
STUDY: X-RAY CHEST REASON FOR EXAM: Male, 51 years old. Port placement. TECHNIQUE: Single AP portable view of the chest. COMPARISON: None. FINDINGS: A right-sided sandra catheter has been placed. The tip is at the junction of the superior vena cava and right atrium. The lungs are clear and expanded. There is no demonstrated pleural abnormality. Normal size heart. Normal mediastinum and kranthi. Normal visualized pulmonary arteries. Normal visualized aortic arch and descending thoracic aorta. Normal visualized thoracic spine. Normal visualized ribs, clavicles, and shoulders. There is no demonstrated abnormality of the visualized soft tissue structures of the upper abdomen. RAD/CXR for Line Placement IMPRESSION: The tip of the catheter is at the junction of the spur vena cava and right atrium. Electronically Signed: Eliecer Poe MD at 11:17 EST Tel [phone], Service support ,
== END 2017-07-25 11:47 | disposition home or self-care (01) ==
LOC: SDC 08:13 → AC 08:15
PROVIDERS: Family Provider Family Medicine; PCP Family Medicine; Visit Provider Surgery
PROC: (CPT 36571; principal; 2017-07-25 09:35)
DX: Z45.2 Encounter for adjustment and management of vascular access device (principal); C18.7 Malignant neoplasm of sigmoid colon; K21.9 Gastro-esophageal reflux disease without esophagitis; E11.9 Type 2 diabetes mellitus without complications
CPT/HCPCS: 00532; 36571; 71045; 77001; 82962; J7120; C1788; J2405

== ENCOUNTER → 2017-07-28 13:52 | Outpatient (CLI) | payer OTHER, SELFPAY ==
--- NOTE | 2017-07-28 13:54 | CT_ITS ---
STUDY: CT CHEST WITH CONTRAST REASON FOR EXAM: Male, 51 years old. Colon cancer with resection, starts chemotherapy next week. Has port and previous appendectomy. RADIATION DOSAGE (If Supplied By Facility): CTDIvol = ( 14.47 ) mGy, DLP = ( 792.00 ) mGycm TECHNIQUE: Transaxial 2.5 mm imaging was performed following intravenous administration of 100 ml of Isovue-300 contrast material. Multiplanar coronal and sagittal images were reformatted. Individualized dose optimization techniques were used for this CT. COMPARISON: Chest x-ray 07/25/2017. FINDINGS: Right anterior chest wall port via right internal jugular vein with catheter tip over the cavoatrial junction. Minimal air in the port pocket. The lungs are normal. There is no demonstrated pleural abnormality. Normal heart and pericardium. Normal mediastinum. Normal hilar regions. Normal enhanced pulmonary arteries. Normal aorta arch and descending thoracic aorta. There are minimal degenerative changes of the thoracic spine. No destructive osseous lesions. There is no demonstrated abnormality of the visualized upper abdomen. CT/Chest WITH Contrast IMPRESSION: There is no acute cardiopulmonary disease. No sign of metastatic disease. Electronically Signed: Felicia Gabriel MD at 2:48 EST , Service support ,
== END ==
PROVIDERS: Family Provider Family Medicine; PCP Family Medicine; Visit Provider Internal Medicine Medical Oncology
DX: C18.7 Malignant neoplasm of sigmoid colon (principal)
CPT/HCPCS: 71260; Q9967

== ENCOUNTER → 2018-02-05 15:27 | Outpatient (CLI) | payer OTHER, SELFPAY | PROVIDERS: Family Provider Family Medicine; PCP Family Medicine; Visit Provider Internal Medicine Medical Oncology | DX: C18.7 Malignant neoplasm of sigmoid colon (principal) | CPT/HCPCS: 74176 ==

== ENCOUNTER → 2018-08-06 15:35 | Outpatient (CLI) | payer OTHER, SELFPAY ==
[2018-02-09 15:48] VITALS: BMI 32.7
[2018-06-08 17:00] VITALS: BMI 33.7
--- NOTE | 2018-08-06 15:37 | CT_ITS ---
STUDY: CT ABDOMEN AND PELVIS WITH CONTRAST REASON FOR EXAM: Male, 52 years old. Malignant neoplasm sigmoid colon. RADIATION DOSAGE (If Supplied By Facility): CTDIvol = ( 24.88 ) mGy, DLP = ( 1342.41 ) mGycm TECHNIQUE: Transaxial images were obtained from the dome of the diaphragm to the symphysis pubis with oral contrast. Gastrografin 15 Oral was administered. Sagittal and coronal images were reconstructed. Individualized dose optimization techniques were used for this CT. COMPARISON: February 05, 2018 FINDINGS: The visualized lung bases are unremarkable. The visualized portions of the heart are within normal limits. There is a tip of a catheter at the atriocaval junction. Normal liver. Normal gallbladder and extrahepatic biliary system. There is mild splenomegaly. Normal pancreas. Normal bilateral adrenal glands. Normal right kidney. Normal right ureter. There is a small contour abnormality along the lower pole of the left kidney thought to represent cysts. There are stable calcifications in the lower pole calyces. Normal left ureter. Normal visualized stomach. Normal small intestine. There is a surgical anastomosis in the lower sigmoid colon. The colon appears otherwise grossly normal. There are surgical clips in the region of the appendix consistent with a prior appendectomy. Normal abdominal aorta. Normal inferior vena cava. Normal retroperitoneum. Normal urinary bladder. Normal prostate and seminal vesicles. There are phleboliths in the pelvis without lymphadenopathy. No free air or free fluid seen within the peritoneal cavity. Normal abdominal wall. Normal osseous structures. CT/Abdomen/Pel W ORAL Cont Only IMPRESSION: 1. Stable surgical changes of the sigmoid colon. There is no evidence of recurrence or metastatic disease. 2. Mild splenomegaly. 3. No major interval change. Electronically Signed: Marquez Davis DO at 20:46 EST Tel [phone], Service support ,
== END ==
PROVIDERS: Family Provider Family Medicine; PCP Family Medicine; Referring Provider Internal Medicine Medical Oncology; Visit Provider Internal Medicine Medical Oncology
DX: C18.7 Malignant neoplasm of sigmoid colon (principal)
CPT/HCPCS: 74176

== ENCOUNTER 2018-09-04 07:46 | Day surgery (SDC) | payer OTHER, SELFPAY ==
[2018-08-18 13:54] VITALS: BMI 33.3
[2018-09-04 08:01] VITALS: BP 132/75; PULSE 84; RESP 18; TEMP 36.6; O2SAT 99; BMI 32.9
--- NOTE | 2018-09-04 09:00 | COLBX_PTH ---
PATIENT: SAUMYA LOW LOC: EN U#:[id number] AGE/SX: 52/M ROOM: RE09/04/[address]: Dr. Wayne Turner MD : 1965 BED: DIS: 09/04/2018 SPEC #: [id number] RECD: 09/04/18 10:25 STATUS: JEAN PAUL CHRISTINA #: [id number] DAGOBERTO: 09/04/18 09:[address]: Wayne Turner DEPT: SURGICAL PATHOLOGY RECD BY: Jordan Garcia ENTERED: 09/04/18 10:53 SP TYPE: COLON BX OTHR DR: Dr. Misha Schilling MD Tissues: A - Transverse colon B - COLON BIOPSY Procedures: Surgery Specimen Level IV HEADER OPERATION: Colonoscopy (MAC) PRE-OP DIAGNOSIS: History colon CA; follow up colonoscopy TISSUE SUBMITTED: A - Polyp transverse colon, B - Polyp hepatic flexure MICROSCOPIC DIAGNOSIS A. Transverse colon polyp, biopsy: Tubular adenoma. B. Hepatic flexure polyp, biopsy: Tubular adenoma. AM:stephanie 09/07/18 COMMENT Case has been reviewed in consultation with Dr. Mendez who concurs with the above diagnosis. IDC:PRASANNA MICROSCOPIC DESCRIPTION Slides are reviewed. GROSS DESCRIPTION A - Received in fixative is one container labeled with the patient's name and designated transverse colon polyp. The specimen consists of multiple irregular fragments of light pacheco soft tissue that in aggregate measure 0.8 x 0.5 x 0.2 cm. The specimen is totally submitted in one cassette. B - Received in fixative is one container labeled with the patient's name and designated hepatic flexure polyp. The specimen consists of multiple irregular fragments of light pacheco soft tissue that in aggregate measure 0.8 x 0.6 x 0.2 cm. The specimen is totally submitted in one cassette. / PRASANNA:stephanie 09/04/18 TC:5 CPT: 86081 x2
--- NOTE | 2018-09-04 09:30 | OP.ENDO_ITS ---
09/04/2018 Misha Schilling [address] [place] [address] Re : Colonoscopy procedure for Wilmar Santos Dear Dr. Schilling This procedure was performed on Tuesday, September 04, 2018. My impressions and recommendations are as follows: Impressions : - Two polyps in the transverse colon and at the hepatic flexure, removed with a hot snare. Resected and retrieved. Recommendations : - Discharge patient to home. - Resume previous diet. - Continue present medications. - Await pathology results. - Repeat colonoscopy in 1 year for surveillance. My findings are described in the full procedure note, which is enclosed. If I can be of further assistance, please feel free to contact me at Doctor phone number(s): , Work: . Sincerely, Wayne Turner MD 09/04/2018 9:30:20 AM This report has been signed electronically.
[2018-09-04 09:32] VITALS: BP 132/75; BP 92/72; PULSE 93; RESP 18; TEMP 36; O2SAT 97
[2018-09-04 09:35] VITALS: BP 104/74; BP 132/75; PULSE 93; RESP 16; O2SAT 97
[2018-09-04 09:40] VITALS: BP 107/67; BP 132/75; PULSE 86; RESP 16; O2SAT 97
[2018-09-04 09:41] LABS: Bedside Glucose 299 mg/dL (70-110)
[2018-09-04 09:45] VITALS: BP 109/77; BP 132/75; PULSE 84; RESP 16; TEMP 36.7; O2SAT 98
[2018-09-04 10:24] VITALS: BP 132/75
== END 2018-09-04 10:26 | disposition home or self-care (01) ==
LOC: EN 07:46 → AC 07:47
PROVIDERS: Family Provider Family Medicine; PCP Family Medicine; Referring Provider Family Medicine; Visit Provider Surgery
PROC: 0DJD8ZZ Inspection of Lower Intestinal Tract, Via Natural or Artificial Opening Endoscopic (ICD-10-PCS; CPT 45378; principal; 2018-09-04 08:55)
DX: D12.3 Benign neoplasm of transverse colon (principal); Z85.038 Personal history of other malignant neoplasm of large intestine; E11.9 Type 2 diabetes mellitus without complications; K21.9 Gastro-esophageal reflux disease without esophagitis; Z79.899 Other long term (current) drug therapy; R42 Dizziness and giddiness; Z87.442 Personal history of urinary calculi
CPT/HCPCS: 45385; 82962; 88305; J7120

== ENCOUNTER → 2019-02-04 17:19 | Outpatient (CLI) | payer OTHER, SELFPAY ==
--- NOTE | 2019-02-04 17:28 | CT_ITS ---
STUDY: CT ABDOMEN AND PELVIS WITH CONTRAST REASON FOR EXAM: Male, 53 years old. Colon cancer surveillance. TECHNIQUE: Transaxial images were obtained from the dome of the diaphragm to the symphysis pubis with oral contrast. 100ml IV/Oral Isovue 300 was administered. Sagittal and coronal images were reconstructed. Individualized dose optimization techniques were used for this CT. COMPARISON: 08/06/2018 CT abdomen pelvis. FINDINGS: Partially visualized lower chest: [Lung bases unremarkable.] Liver: [No concerning lesions.] Gallbladder and biliary tree: No visible gallstones. No pericholecystic inflammation. No biliary ductal dilation. Pancreas: No pancreatic lesions or inflammation. Spleen: Normal size, no splenic lesions. Adrenal glands: No concerning masses. Kidneys and ureters: Right kidney normal. Small focus of scarring upper pole left kidney. Incidental small cyst lower pole left kidney. 2 nonobstructing stones lower pole left kidney, largest 5 mm diameter. Bowel: [Prior appendectomy.] No obstruction or inflammation of the bowel. Prior partial sigmoid colon resection with anastomosis in the upper pelvis. Urinary bladder: No stones or wall thickening. Reproductive:Normal size prostate. Vascular: No abdominal aortic aneurysm. Retroperitoneal and peritoneal spaces: No ascites or free air. No retroperitoneal lesions. Mild stranding in adenopathy in the superior mesenteric fat which is chronic and unchanged. No other adenopathy. Osseous: No acute osseous abnormality. No suspicious osseous lesions. Abdominal and pelvic wall: No concerning findings. Chronic postoperative changes anteriorly with mesh deep to the umbilicus. CT/Abdomen/Pelvis WITH Contrast IMPRESSION: No acute or concerning findings. No evidence of recurrence or metastatic disease. No concerning interval change. Electronically Signed: Mushtaqedmund Preston, at 22:23 EDT Tel , Service support ,
[2019-02-04 17:43] LABS: Absolute Lymphocyte Count 2.19 X10^3/uL (0.83-4.51); Absolute Neutrophil Count 5.6 X10^3/uL (2.0-7.7); Basophil# 0.05 X10^3/uL; Basophil% 0.6 % (0-1); Eosinophil# 0.08 X10^3/uL; Eosinophils% 0.9 % (0-5); Hematocrit 45.3 % (40-54); Hemoglobin 16.1 g/dL (13.0-16.5); Lymphocyte # 2.19 X10^3/ul (4.0); Lymphocyte % 25.6 % (19-41); Mean Corp Hgb Conc 35.5 g/dL (32-36); Mean Corpuscular Hgb 29.7 pg (27.0-32.0); Mean Corpuscular Volume 83.6 fL (80-94); Mean Platelet Vol. 8.9 fl (6.2-12.0); Monocyte# 0.57 X10^3/uL; Monocyte% 6.7 % (0-10); NRBC Flagged by Analyzer 0 % (0-5); Neutrophil # 5.64 X10^3/uL (2.7-7.7); Neutrophil % 65.8 % (47-70); Platelet Count 200 K/mm3 (150-450); RBC Distribution Width CV 12.7 % (11.6-14.6); RBC Distribution Width SD 38.5 fl (35.1-43.9); Red Blood Count 5.42 M/mm3 (4.6-6.2); White Blood Count 8.6 K/mm3 (4.4-11.0)
[2019-02-04 17:58] LABS: ALB/GLOB Ratio 0.9 RATIO (0.9-2.4); AST(SGOT) 22 U/L (15-37); Alanine Aminotransfer ALT/SGPT 38 U/L (16-61); Albumin, Serum 3.5 g/dL (3.2-5.0); Alkaline Phosphatase 144 U/L (45-117); Anion Gap 7 (5-15); BUN 15 mg/dL (7-18); BUN/Creat Ratio 16.9 RATIO (10-20); Calcium,Total 9.1 mg/dL (8.5-10.1); Chloride 101 mmol/L (98-107); Creatinine, Serum 0.89 mg/dL (0.70-1.30); EST Glomerular Filtration Rate 95 mL/min (>60); Est Glom Filt Rate - Afr Amer 115 mL/min (>60); Globulin 4.1 g/dL (2.2-4.2); Glucose 285 mg/dL (74-106); Protein, Total 7.6 g/dL (6.4-8.2); Sodium Level 135 mmol/L (136-145)
[2019-02-06 14:09] LABS: Carcinoembryonic Antigen 1.7 ng/mL (0.0-4.7)
== END ==
PROVIDERS: Family Provider Family Medicine; PCP Family Medicine; Referring Provider Internal Medicine Medical Oncology; Visit Provider Internal Medicine Medical Oncology
DX: C18.7 Malignant neoplasm of sigmoid colon (principal)
CPT/HCPCS: 36415; 74177; 80053; 82378; 85025; Q9967

== ENCOUNTER 2019-04-27 03:48 | Emergency (ER) | payer BC, SELFPAY ==
[2019-02-09 15:04] VITALS: BMI 33.4
[2019-04-27 03:49] VITALS: BP 183/104; PULSE 114; RESP 17; TEMP 36.3; O2SAT 100; BMI 33.7
--- NOTE | 2019-04-27 03:54 | CT_ITS ---
STUDY: CT ABDOMEN AND PELVIS WITHOUT CONTRAST REASON FOR EXAM: Male, 53 years old. RADIATION DOSAGE (If Supplied By Facility): CTDIvol = ( 15.97 ) mGy, DLP = ( 909.49 ) mGycm TECHNIQUE: Transaxial images were obtained from the dome of the diaphragm to the symphysis pubis without oral contrast, and without intravenous contrast. Sagittal and coronal images were reconstructed. Individualized dose optimization techniques were used for this CT. COMPARISON: 02/04/2019. FINDINGS: The visualized lung bases are unremarkable. The visualized portions of the heart are within normal limits. Normal liver. Normal gallbladder and extrahepatic biliary system. Normal spleen. Normal pancreas. Normal bilateral adrenal glands. Normal right kidney. There is minimal left perinephric stranding and mild left hydronephrosis due to a 4.2 mm stone within the proximal left ureter, located 3.5 cm below the UP junction. There is a 1.2 mm stone within the lower pole of the left kidney. Remainder of the left kidney is normal. Normal visualized stomach. Normal small intestine. Normal colon. There are surgical clips in the region of the appendix consistent with a prior appendectomy. Normal abdominal aorta. Normal inferior vena cava. Normal retroperitoneum. Normal urinary bladder. Normal visualized prostate gland. Normal abdominal wall. Normal osseous structures. CT/Abdomen/Pelvis without Cont IMPRESSION: Mild left hydronephrosis due to a 4.2 mm stone within the proximal left ureter, 3.5 cm below the UP junction. 1.2 mm stone within the lower pole of the left kidney. Status post appendectomy. No bowel obstruction. Electronically Signed: Anitha Cheatham MD at 5:13 EST , Service support ,
[2019-04-27 03:55] VITALS: PULSE 84; RESP 19; O2SAT 100
--- NOTE | 2019-04-27 03:58 | ED.DCSUM_ITS ---
History of Present Illness Chief Complaint: Abd Pain Informant: Patient Onset: Today Context: Gradual Onset Timing: Continuous Current Severity: Moderate Maximum Severity: Severe Narrative: The patient is a 53-year-old male with medical history significant for colon cancer who is not undergoing any current treatment, kidney stone, and prior colectomy 2 years ago who presents to the emergency department with left lower quadrant pain. Patient states his pain began at about 2 this morning. He described it as a dull ache. Since then, is worsened. He states sometimes he goes to his back. He was acutely nauseated without vomiting. He denies any dysuria or hematuria. He moves his bowels normally yesterday. He has no history of bowel obstruction. He states he is otherwise been in his normal state of health. Prior similar symptoms: Yes Recent Illness/Hospitalization: No Past Medical History - Allergies and Home Meds Allergies/Adverse Reactions: Allergies No Known Allergies Allergy (Verified 02/09/19 14:59) Primary Care Physician: Santos Monreal MD [STAFF PHYSICIAN] - Prior records reviewed: Yes Past Medical History: - - Kidney stone, colon cancer Surgical History: - - Umbilical hernia repair with mesh Smoking Status: Never smoker - Family History Maternal Family History: Family History (Last Reviewed 02/09/19 @ 14:59 by Shanta Lopes) Mother Diabetes CVA (cerebral vascular accident) Father Diabetes Hypertension Family History: Reports: Hypertension, Stroke Review of Systems General: Denies: Chills, Fever, Sweats Eyes: Denies: Visual changes - bilaterally, Diplopia ENT: Denies: Rhinorrhea, Sore throat Cardiovascular: Denies: Chest pain, Palpitations Respiratory: Denies: Dyspnea, Cough, Dyspnea on exertion Gastrointestinal: Reports: Abdominal pain, Nausea. Denies: Vomiting, Diarrhea, Melena, Hematochezia Genitourinary: Denies: Dysuria, Hematuria, Frequency Musculoskeletal: Denies: Back pain, Extremity Pain Skin: Denies: Rash, Wounds Neurological: Denies: Headache, Weakness, Numbness Physical Exam Vital Signs/Narrative: Vital Signs Temp Pulse Resp BP Pulse Ox 04/27/19 03:55 84 19 H 100 04/27/19 03:49 97.3 F L 114 H 17 183/104 H 100 Inital Vital Signs reviewed: Yes General: Well nourished, Well developed, No Acute Distress Head: Normocephalic, Atraumatic Eyes: Perrl, EOMI ENT: Moist mucous membranes, No rhinorrhea Neck: Supple, Nontender Cardiovascular: Regular rate, Regular rhythm, No murmurs Respiratory: No distress, CTA bilaterally, Chest nontender Abdomen: Soft, Nontender, Nondistended, Normal bowel sounds Back: Nontender, Normal Inspection Extremities: Nontender, No edema Skin: Normal color, No rash Neurological: Alert, Oriented x3, Cranial nerves II-XII grossly intact, Normal Strength, Normal Sensation Psychological: Normal affect, Normal Mood Diagnostic/Tx/Re-eval Abnormal Lab Results 04/27/19 04/27/19 03:56 03:56 WBC 10.3 RBC 5.69 Hgb 16.6 H Hct 47.5 MCV 83.5 MCH 29.2 MCHC 34.9 RDW Std Deviation 39.4 RDW Coeff of Gwen 13.1 Plt Count 233 MPV 9.2 Immature Gran % (Auto) 0.400 Neut % (Auto) 61.9 Lymph % (Auto) 27.1 Jackson % (Auto) 8.7 Eos % (Auto) 1.1 Baso % (Auto) 0.8 Absolute Neuts (auto) 6.4 Absolute Lymphs (auto) 2.80 Nucleated RBC % 0 Sodium 138 Potassium 3.9 Chloride 104 Carbon Dioxide 28.0 Anion Gap 6 BUN 11 Creatinine 0.95 Estim Creat Clear Calc 90.72 Est GFR (MDRD) Af Amer 105 Est GFR (MDRD) Non-Af 87 BUN/Creatinine Ratio 11.5 Glucose 195 H Calcium 9.1 Total Bilirubin 0.90 AST 33 ALT 46 Alkaline Phosphatase 118 H Total Protein 7.5 Albumin 3.6 Globulin 3.9 Albumin/Globulin Ratio 0.9 Clinical Impression(s) from Imaging Studies Abdomen/Pelvis CT 04/27/19 03:54 IMPRESSION: Mild left hydronephrosis due to a 4.2 mm stone within the proximal left ureter, 3.5 cm below the UP junction. 1.2 mm stone within the lower pole of the left kidney. Status post appendectomy. No bowel obstruction. Electronically Signed: Anitha Cheatham MD at 5:13 EST , Service support , - Medical Decision Making The patient presents with sudden onset abdominal pain, nausea, and vomiting. He does have history of kidney stone, but also has history of prior colon cancer with resection. I cannot re-create his pain on examination. IV was established. The patient's pain and nausea were addressed and he was feeling improved. Labs were relatively unremarkable. CT does demonstrate a proximal obstructing stone. It is measured as 4.2 mm. The patient is currently pain- free. I did discuss his case with Dr. Monreal, who is in agreement for outpatient follow-up. The patient will be treated with antiemetics and analgesics. He will call urology today to be seen as an outpatient. He was also counseled on concerning symptoms and reasons to return. Impression 1. 4 mm left-sided obstructing kidney stone ED Disposition - Plan for ED Patient: Instructions: KIDNEY STONE w/ Colic Prescriptions: Tamsulosin HCl [Flomax] 0.4 mg PO DAILY #7 cap Prescription Printed Oxycodone HCl/Acetaminophen [Percocet 5/325] 1 tab PO Q6H PRN PRN 3 Days #12 tab PRN Reason: Pain Prescription Printed Ondansetron [Zofran Odt] 4 mg PO Q8H PRN PRN #10 tab PRN Reason: Nausea Prescription Printed Referrals: Santos Monreal MD [STAFF PHYSICIAN] -
[2019-04-27 04:02] LABS: Absolute Neutrophil Count 6.4 X10^3/uL (2.0-7.7); Basophil# 0.08 X10^3/uL; Basophil% 0.8 % (0-1); Eosinophil# 0.11 X10^3/uL; Eosinophils% 1.1 % (0-5); Hematocrit 47.5 % (40-54); Hemoglobin 16.6 g/dL (13.0-16.5); Lymphocyte % 27.1 % (19-41); Mean Corp Hgb Conc 34.9 g/dL (32-36); Mean Corpuscular Hgb 29.2 pg (27.0-32.0); Mean Corpuscular Volume 83.5 fL (80-94); Mean Platelet Vol. 9.2 fl (6.2-12.0); Monocyte% 8.7 % (0-10); NRBC Flagged by Analyzer 0 % (0-5); Neutrophil % 61.9 % (47-70); Platelet Count 233 K/mm3 (150-450); RBC Distribution Width CV 13.1 % (11.6-14.6); RBC Distribution Width SD 39.4 fl (35.1-43.9); Red Blood Count 5.69 M/mm3 (4.6-6.2); White Blood Count 10.3 K/mm3 (4.4-11.0)
[2019-04-27] MEDS: 0.9% Normal Saline 1,000 ML 1000 ML IV (04:03)
[2019-04-27] MEDS: Morphine 4 MG/ML Syringe IV (04:04)
[2019-04-27] MEDS: Ketorolac 30 MG/ML Syringe IV (04:06)
[2019-04-27] MEDS: Ondansetron 4 MG/2 ML Vial IV (04:06)
[2019-04-27 04:19] LABS: ALB/GLOB Ratio 0.9 RATIO (0.9-2.4); AST(SGOT) 33 U/L (15-37); Alanine Aminotransfer ALT/SGPT 46 U/L (16-61); Albumin, Serum 3.6 g/dL (3.2-5.0); Alkaline Phosphatase 118 U/L (45-117); Anion Gap 6 (5-15); BUN 11 mg/dL (7-18); BUN/Creat Ratio 11.5 RATIO (10-20); Calcium,Total 9.1 mg/dL (8.5-10.1); Chloride 104 mmol/L (98-107); Creatinine, Serum 0.95 mg/dL (0.70-1.30); EST Glomerular Filtration Rate 87 mL/min (>60); Est Glom Filt Rate - Afr Amer 105 mL/min (>60); Estimated Creatinine Clearance 90.72 ml/min; Globulin 3.9 g/dL (2.2-4.2); Glucose 195 mg/dL (74-106); Potassium 3.9 mmol/L (3.5-5.1); Protein, Total 7.5 g/dL (6.4-8.2); Sodium Level 138 mmol/L (136-145)
[2019-04-27 04:51] LABS: Mucous, Urine 0 SEEN /hpf (<or=2+)
[2019-04-27 04:52] LABS: Color, Urine Yellow (Yellow); Glucose, Dipstick 1000 mg/dl (Normal); Ketone-Dipstick 5 mg/dl (Negative); Leukocyte Esterase-Dipstick 25 /ul (Negative); Nitrite-Dipstick Negative (Negative); Occult Blood-Urine 250 /ul (Negative); Protein-Dipstick 30 mg/dl (Negative); Urine Bilirubin Dipstick Negative (Negative); Urine Clarity Cloudy (Clear); Urine Urobilinogen 1 mg/dl (Normal)
[2019-04-27 04:58] LABS: Bacteria 2+ /hpf (None Seen); Red Blood Cells-Urine 25-50 SEEN /hpf (0-5)
[2019-04-27 04:59] LABS: Squamous Epithelial Cells - UA 0-5 SEEN /hpf (0-5); White Blood Cells 0-5 SEEN /hpf (0-5)
[2019-04-27 05:34] VITALS: BP 135/76; PULSE 86; RESP 16; O2SAT 96
== END 2019-04-27 05:35 | disposition home or self-care (01) ==
PROVIDERS: Emergency Provider Emergency Medicine; Family Provider Family Medicine; PCP Family Medicine
DX: N13.2 Hydronephrosis with renal and ureteral calculous obstruction (principal); Z85.038 Personal history of other malignant neoplasm of large intestine
CPT/HCPCS: 74176; 80053; 81001; 85025; 87086; 87088; 99282; J7030; A4216; J2405

== ENCOUNTER 2019-04-28 13:31 | Day surgery (SDC) | payer BC, SELFPAY ==
[2019-04-27 03:49] VITALS: BMI 33.7
[2019-04-28 13:47] VITALS: BP 145/90; PULSE 82; RESP 16; TEMP 36.2; O2SAT 98; BMI 33.8
[2019-04-28] MEDS: Lactated Ringers 1,000 ML 100 ML IV (13:56)
[2019-04-28 14:06] LABS: Bedside Glucose 155 mg/dL (70-110)
[2019-04-28] MEDS: Ketorolac 15 MG/ML Vial IV (15:36)
--- NOTE | 2019-04-28 15:39 | DCINST_ITS ---
Discharge Diet: Light diet - advance as tolerated Discharge Activity: Return to Normal Activity Call your doctor if you observe: Fever of 101 or Higher Instructions: Treating Kidney Stones: Ureteroscopic Stone Removal Allergies/Adverse Reactions: Allergies No Known Allergies Allergy (Verified 04/28/19 13:39) Medications to take at Discharge Metformin HCl 1,000 mg PO BREAKFAST 02/09/19 Ondansetron [Zofran Odt] 4 mg PO Q8H PRN PRN #10 tab 04/27/19 Oxycodone HCl/Acetaminophen [Percocet 5/325] 1 tab PO Q6H PRN PRN 3 Days #12 tab 04/27/19 Tamsulosin HCl [Flomax] 0.4 mg PO DAILY #7 cap 04/27/19 metFORMIN HCl [Glucophage] 500 mg PO QHS 04/27/19 Ciprofloxacin [Cipro] 500 mg PO BID #6 tab 04/28/19 Hydrocodone/Acetaminophen [[place] 5-325 Tablet] 1 ea PO Q4H PRN PRN #14 tab 04/28/19 Phenazopyridine [Pyridium] 100 mg PO TID #14 tab 04/28/19 The following prescriptions were given: Ciprofloxacin [Cipro] 500 mg PO BID #6 tab Prescription Printed Hydrocodone/Acetaminophen [[place] 5-325 Tablet] 1 ea PO Q4H PRN PRN #14 tab PRN Reason: Pain Score 1-10/10 Prescription Printed Phenazopyridine [Pyridium] 100 mg PO TID #14 tab Prescription Printed Primary Care Physician: Misha Anderson MD [Primary Care Provider] - Test Results: Test results from this visit will be discussed in further detail at your follow- up appointment, if applicable. Please Follow Up With: Santos Monreal MD When: please call to make an appointment.
[2019-04-28] MEDS: Cefazolin 2 GM in 0.9% Normal Saline 100 ML IV (15:45)
--- NOTE | 2019-04-28 16:08 | PCM.OPRPT ---
Report of Operation Date of Procedure: 04/28/19 Pre-Operative Diagnosis: Left ureteral calculi proximal Post-Operative Diagnosis: Same Surgery/Procedure Performed:: Cystoscopy left retrograde pyelogram interpretation fluoroscopic images, balloon dilation of the left ureter, left ureteroscopy laser lithotripsy of stone and stent placement Description of Surgical Findings:: 53-year-old male presented to the hospital with obstructing stone with some in the office consultation and was taken to surgery today for ureteroscopy and laser lithotripsy of obstructing stone in the left kidney. Patient was taken back to the operating room at the smooth induction of general anesthesia he was placed in dorsolithotomy position. Penis and testicles were prepped and draped in usual sterile fashion. Went into the urethra with a 21 [place] rigid cystourethroscope the entire length urethra is normal the prostate was normal the bladder was normal the left and right ureteral orifice were normal I then cannulated the left ureteral orifice with a Glidewire advance a wire up into the kidney and over the wire advanced a balloon dilator and balloon dilated the distal ureter with a 12 [place] 10 cm balloon dilator, once this was done that I left the wire in place and then over the wire went in with a flexible ureteroscope was able to get up into the proximal ureter quite easily and then up in the kidney and found the stone at this large stone from the ureter and then treat the stone with laser lithotripsy stone with laser little tiny pieces that should all pass on their own, I then performed a retrograde pyelogram fluoroscopic images were used to guide the placement of the stent next I then put a wire through the floor through the ureteroscope up into the kidney and then backloaded scope put a stent up on the left side drain the bladder left the string of the stent for easy extraction in a few days and patient anesthetic is being reversed and successful laser of the stone and placement of a stent on the left side. Type of Anesthesia:: General Drains: stent left side - Admit VTE Documentation VTE Present on Admission: No VTE Mechan Device Prophylaxis: SCD's
[2019-04-28 16:18] VITALS: BP 129/83; BP 145/90; PULSE 94; RESP 16; TEMP 36.8; O2SAT 94
[2019-04-28 16:30] VITALS: BP 129/79; BP 145/90; PULSE 83; RESP 16; O2SAT 94
[2019-04-28 16:45] VITALS: BP 131/78; BP 145/90; PULSE 78; RESP 16; O2SAT 95
[2019-04-28 17:00] VITALS: BP 131/79; BP 145/90; PULSE 82; RESP 16; TEMP 36.3; O2SAT 92
[2019-04-28 18:04] VITALS: BP 145/90; BP 146/79; PULSE 74; RESP 18; TEMP 36.1; O2SAT 97
== END 2019-04-28 18:05 | disposition home or self-care (01) ==
LOC: SDC 13:31 → AC 13:37
PROVIDERS: Family Provider Family Medicine; PCP Family Medicine; Referring Provider Urology; Visit Provider Urology
PROC: 0TJ98ZZ Inspection of Ureter, Via Natural or Artificial Opening Endoscopic (ICD-10-PCS; CPT 52352; principal; 2019-04-28 15:35)
DX: N20.1 Calculus of ureter (principal); Z87.442 Personal history of urinary calculi; E11.9 Type 2 diabetes mellitus without complications; C18.9 Malignant neoplasm of colon, unspecified
CPT/HCPCS: 00873; 52356; 76000; 82962; J7120; C1769; C2617; J2405

== ENCOUNTER → 2019-08-05 16:54 | Outpatient (CLI) | payer BC, SELFPAY ==
[2019-08-05 17:54] LABS: Absolute Lymphocyte Count 2.17 X10^3/uL (0.83-4.51); Basophil# 0.05 X10^3/uL; Basophil% 0.5 % (0-1); Eosinophil# 0.07 X10^3/uL; Eosinophils% 0.7 % (0-5); Hemoglobin 14.9 g/dL (13.0-16.5); Lymphocyte # 2.17 X10^3/ul (4.0); Lymphocyte % 21.8 % (19-41); Mean Corp Hgb Conc 33.9 g/dL (32-36); Mean Corpuscular Hgb 28.7 pg (27.0-32.0); Mean Corpuscular Volume 84.8 fL (80-94); Mean Platelet Vol. 9.3 fl (6.2-12.0); Monocyte# 0.68 X10^3/uL; Monocyte% 6.8 % (0-10); NRBC Flagged by Analyzer 0 % (0-5); Neutrophil # 6.96 X10^3/uL (2.7-7.7); Neutrophil % 69.9 % (47-70); Platelet Count 231 K/mm3 (150-450); RBC Distribution Width CV 13.2 % (11.6-14.6); RBC Distribution Width SD 40.8 fl (35.1-43.9); Red Blood Count 5.19 M/mm3 (4.6-6.2)
[2019-08-05 18:42] LABS: ALB/GLOB Ratio 0.9 RATIO (0.9-2.4); AST(SGOT) 28 U/L (15-37); Alanine Aminotransfer ALT/SGPT 44 U/L (16-61); Albumin, Serum 3.5 g/dL (3.2-5.0); Alkaline Phosphatase 113 U/L (45-117); Anion Gap 6 (5-15); BUN 14 mg/dL (7-18); BUN/Creat Ratio 16.8 RATIO (10-20); Calcium,Total 9.2 mg/dL (8.5-10.1); Chloride 107 mmol/L (98-107); Creatinine, Serum 0.84 mg/dL (0.70-1.30); EST Glomerular Filtration Rate 101 mL/min (>60); Est Glom Filt Rate - Afr Amer 123 mL/min (>60); Globulin 4.1 g/dL (2.2-4.2); Glucose 115 mg/dL (74-106); Potassium 4.1 mmol/L (3.5-5.1); Protein, Total 7.6 g/dL (6.4-8.2); Sodium Level 141 mmol/L (136-145)
[2019-08-07 05:35] LABS: Carcinoembryonic Antigen 1.3 ng/mL (0.0-4.7)
== END ==
PROVIDERS: PCP Family Medicine; Referring Provider Family Medicine; Visit Provider Internal Medicine Medical Oncology
DX: C18.7 Malignant neoplasm of sigmoid colon (principal)
CPT/HCPCS: 36415; 80053; 82378; 85025

== ENCOUNTER → 2020-02-08 16:13 | Outpatient (CLI) | payer BC, SELFPAY ==
[2020-02-08 18:02] LABS: Absolute Lymphocyte Count 1.99 X10^3/uL (0.83-4.51); Absolute Neutrophil Count 6.5 X10^3/uL (2.0-7.7); Basophil# 0.05 X10^3/uL; Basophil% 0.5 % (0-1); Eosinophil# 0.05 X10^3/uL; Eosinophils% 0.5 % (0-5); Hematocrit 46.8 % (40-54); Hemoglobin 15.7 g/dL (13.0-16.5); Lymphocyte # 1.99 X10^3/ul (4.0); Lymphocyte % 21.1 % (19-41); Mean Corp Hgb Conc 33.5 g/dL (32-36); Mean Corpuscular Hgb 28.6 pg (27.0-32.0); Mean Corpuscular Volume 85.2 fL (80-94); Mean Platelet Vol. 9.4 fl (6.2-12.0); Monocyte# 0.81 X10^3/uL; Monocyte% 8.6 % (0-10); NRBC Flagged by Analyzer 0 % (0-5); Neutrophil # 6.47 X10^3/uL (2.7-7.7); Neutrophil % 68.9 % (47-70); Platelet Count 242 K/mm3 (150-450); RBC Distribution Width CV 12.8 % (11.6-14.6); RBC Distribution Width SD 39.8 fl (35.1-43.9); Red Blood Count 5.49 M/mm3 (4.6-6.2); White Blood Count 9.4 K/mm3 (4.4-11.0)
[2020-02-08 18:24] LABS: ALB/GLOB Ratio 0.9 RATIO (0.9-2.4); AST(SGOT) 25 U/L (15-37); Alanine Aminotransfer ALT/SGPT 38 U/L (16-61); Albumin, Serum 3.6 g/dL (3.2-5.0); Alkaline Phosphatase 122 U/L (45-117); Anion Gap 6 (5-15); BUN 10 mg/dL (7-18); BUN/Creat Ratio 11.5 RATIO (10-20); Calcium,Total 8.9 mg/dL (8.5-10.1); Chloride 102 mmol/L (98-107); Creatinine, Serum 0.87 mg/dL (0.70-1.30); EST Glomerular Filtration Rate 97 mL/min (>60); Est Glom Filt Rate - Afr Amer 117 mL/min (>60); Glucose 151 mg/dL (74-106); LDH 140 U/L (87-241); Potassium 3.6 mmol/L (3.5-5.1); Protein, Total 7.6 g/dL (6.4-8.2); Sodium Level 137 mmol/L (136-145)
[2020-02-10 05:38] LABS: Carcinoembryonic Antigen 1.5 ng/mL (0.0-4.7)
== END ==
PROVIDERS: PCP Family Medicine; Referring Provider Internal Medicine Medical Oncology; Visit Provider Internal Medicine Medical Oncology
DX: Z85.038 Personal history of other malignant neoplasm of large intestine (principal)
CPT/HCPCS: 36415; 80053; 82378; 83615; 85025

== ENCOUNTER 2020-04-11 06:55 | Day surgery (SDC) | payer BC, SELFPAY ==
[2020-03-10 13:12] VITALS: BMI 33.8
--- NOTE | 2020-04-11 07:00 | HP_ITS ---
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 Wayne Turner MD) Smoking Status: Never smoker alcohol intake: never substance use type: does not use HPI HPI HPI: SAUMYA LOW, is a 54 M who presents to the office today for HPI HPI Surgical H&P: Yes HPI: SAUMYA LOW, is a 54 M who presents to the office today for Colonoscopy. The patient has a history of colon cancer which was resected in 2017. Patient has last yearly colonoscopy 1 year ago. Patient is not describing any blood in stool or abdominal pain. ROS General General: No weight change or fatigue Cardio Cardiovascular: No murmur, pacemaker, heart disease, atrial fibrillation, high blood pressure, heart attack, heart stent, palpitations, shortness of breat with exertion or chest pain Psych Psychiatric: No depression or anxiety Resp Respiratory: No shortness of breath, No sleep apnea, No cough, No COPD, No asthma, No emphysema, No wheezing Gastro Gastrointestinal: No abdominal pain, No nausea or vomiting, No diarrhea, No constipation, No blood in stool, No acid reflux, No hemorrhoids, No ulcers, No gallbladder problem, No black,tarry stools Yuniel Hematologic: No blood thinners Exam Const General: cooperative Orientation: alert, oriented x3 Resp Effort & Inspection: normal respiratory effort Auscultation: clear to auscultation bilaterally Cardio Rate: regular rate Rhythm: regular rhythm Heart Sounds: no murmurs GI Inspection: non-distended Palpation: soft, nontender Assessment & Plan Problems 1. Cancer of sigmoid colon C18.7 Plan Patient has a history of colon cancer of the sigmoid colon with resection. He is due for surveillance colonoscopy. If this one is normal I would recommend repeat in 3 years. I explained endoscopy in detail to the patient. I explained the risks including but not limited to stroke or heart attack with anesthesia, perforation of the GI tract, bleeding, infection. I explained that any of these could necessitate further emergency surgery. The patient understands and all questions were answered sufficiently. The patient wishes to proceed with procedure. We discussed the current risks associated with COVID-19. While it is understood that there is a community spread of COVID-19, the risk of dilip COVID-19 while at [facility] ([facility]) is very low; however, the risk cannot be completely mitigated because of the community spread of the disease. We discussed in detail the risk of exposure to and/or potential harm posed by the COVID-19 virus with having a surgery/procedure at this time versus the risk of delaying the surgery/procedure. It is not possible to know either the risk of delaying the surgery or procedure or chance of getting an infection with perfect accuracy, but a joint decision was made to proceed at this time with the scheduled surgery/procedure as indicated on the consent form. Patient was notified that we will need to comply with any screening or testing [facility] wishes to perform or that surgery may be delayed for any positive results. Wayne Turner MD Pager: [facility] [address] [place] [address], [address] [place] [address] Office: Orders Orders: Colonoscopy Today C18.9 Coding Level of Care Code Off vis,est,level 3 Diagnoses Cancer of sigmoid colon C18.7 I have re-examined the patient. There are no clinical changes since date of exam.
[2020-04-11 07:22] VITALS: BP 138/89; PULSE 87; RESP 16; TEMP 36.4; O2SAT 99; BMI 33.7
[2020-04-11] MEDS: Lactated Ringers 1,000 ML 100 ML IV (07:38)
[2020-04-11 07:46] LABS: Bedside Glucose 187 mg/dL (70-110)
[2020-04-11 08:10] VITALS: BP 121/69; BP 138/89; PULSE 88; RESP 18; TEMP 36.2; O2SAT 100
--- NOTE | 2020-04-11 08:10 | OP.COLON_ITS ---
Patient Name: Wilmar Santos Procedure Date: 04/11/2020 7:24 AM Date of : 1965 Age: 54 Procedure: Colonoscopy Indications: High risk colon cancer surveillance: Personal history of colon cancer Providers: Wayne Turner MD Referring MD: Misha Anderson Md Medicines: Monitored Anesthesia Care Patient Profile: This is a 54 year old male. Refer to note in patient chart for documentation of history and physical. Last Colonoscopy: 1 year ago. Complications: No immediate complications. Procedure: Pre-Anesthesia Assessment: - Prior to the procedure, a History and Physical was performed, and patient medications and allergies were reviewed. The patient's tolerance of previous anesthesia was also reviewed. The risks and benefits of the procedure and the sedation options and risks were discussed with the patient. All questions were answered, and informed consent was obtained. Prior Anticoagulants: The patient has taken no previous anticoagulant or antiplatelet agents. After reviewing the risks and benefits, the patient was deemed in satisfactory condition to undergo the procedure. After I obtained informed consent, the scope was passed under direct vision. Throughout the procedure, the patient's blood pressure, pulse, and oxygen saturations were monitored continuously. The colonoscope was introduced through the anus and advanced to the cecum, identified by appendiceal orifice and ileocecal valve. The colonoscopy was performed without difficulty. The patient tolerated the procedure well. The quality of the bowel preparation was good. Scope In: 7:54:29 AM Scope Withdrawal Time 0 hours 6 minutes 18 seconds Scope Out: 8:05:51 AM Total Procedure Duration Time 0 hours 11 minutes 22 seconds Findings: The entire examined colon appeared normal on direct and retroflexion views. Impression: - The entire examined colon is normal on direct and retroflexion views. - No specimens collected. Recommendation: - Discharge patient to home. - Resume previous diet. - Continue present medications. - Await pathology results. - Repeat colonoscopy in 3 years for surveillance. Procedure Code(s): --- Professional --- 74008, Colonoscopy, flexible; diagnostic, including collection of specimen(s) by brushing or washing, when performed (separate procedure) Diagnosis Code(s): --- Professional --- Z85.038, Personal history of other malignant neoplasm of large intestine CPT copyright 2017 [employer]. All rights reserved. The codes documented in this report are preliminary and upon film painter review may be revised to meet current compliance requirements. Wayne Turner MD 04/11/2020 8:10:05 AM This report has been signed electronically. Number of Addenda: 0 Note Initiated On: 04/11/2020 7:24 AM
--- NOTE | 2020-04-11 08:10 | OP.CCLET_ITS ---
04/11/2020 Misha Anderson Md Re : Colonoscopy procedure for Wilmar Santos Dear Justin This procedure was performed on Saturday, April 11, 2020. My impressions and recommendations are as follows: Impressions : - The entire examined colon is normal on direct and retroflexion views. - No specimens collected. Recommendations : - Discharge patient to home. - Resume previous diet. - Continue present medications. - Await pathology results. - Repeat colonoscopy in 3 years for surveillance. My findings are described in the full procedure note, which is enclosed. If I can be of further assistance, please feel free to contact me at Doctor phone number(s): , Work: . Sincerely, Wayne Turner MD 04/11/2020 8:10:05 AM This report has been signed electronically.
[2020-04-11 08:15] VITALS: BP 123/75; BP 138/89; PULSE 77; RESP 18; O2SAT 99
[2020-04-11 08:20] VITALS: BP 119/77; BP 138/89; PULSE 80; RESP 18; O2SAT 99
[2020-04-11 08:25] VITALS: BP 124/80; BP 138/89; PULSE 76; RESP 16; TEMP 36.7; O2SAT 100
[2020-04-11 08:45] VITALS: BP 138/89
== END 2020-04-11 08:50 | disposition home or self-care (01) ==
LOC: EN 06:55 → AC 06:57
PROVIDERS: PCP Family Medicine; Referring Provider Family Medicine; Visit Provider Surgery
PROC: 0DJD8ZZ Inspection of Lower Intestinal Tract, Via Natural or Artificial Opening Endoscopic (ICD-10-PCS; CPT 45378; principal; 2020-04-11 07:55)
DX: Z12.11 Encounter for screening for malignant neoplasm of colon (principal); Z79.84 Long term (current) use of oral hypoglycemic drugs; Z85.038 Personal history of other malignant neoplasm of large intestine
CPT/HCPCS: 45378; 82962; 87426; C9803; J7120

== ENCOUNTER → 2020-08-03 16:25 | Outpatient (CLI) | payer BC, SELFPAY ==
--- NOTE | 2020-08-03 16:32 | CT_ITS ---
STUDY: CT ABDOMEN AND PELVIS WITH CONTRAST REASON FOR EXAM: Male, 54 years old. MONITORING COLON CANCER RADIATION DOSAGE (If Supplied By Facility): CTDIvol = ( 19.72 ) mGy, DLP = ( 1313.98 ) mGycm TECHNIQUE: Transaxial images were obtained from the dome of the diaphragm to the symphysis pubis with oral contrast. Oral and amp; IV Readi-CAT and amp; 100mL Isovue-300 was administered. Sagittal and coronal images were reconstructed. Individualized dose optimization techniques were used for this CT. COMPARISON: 04/27/2019 FINDINGS: The visualized lung bases are unremarkable. The visualized portions of the heart are within normal limits. Normal liver. Normal gallbladder and extrahepatic biliary system. Normal spleen. Normal pancreas. Normal bilateral adrenal glands. Normal right kidney. Normal left kidney. Normal visualized stomach. Normal small intestine. There is no change in the infiltration of the fat and several small lymph nodes within the small bowel mesentery in the left upper quadrant which may represent sclerosing mesenteritis. Suture line in the mid sigmoid colon. No evidence of residual recurrent mass. There are surgical clips in the region of the appendix consistent with a prior appendectomy. Normal abdominal aorta. Normal inferior vena cava. Normal retroperitoneum. Normal urinary bladder. Normal abdominal wall. Normal osseous structures. CT/Abdomen/Pelvis WITH Contrast IMPRESSION: No CT evidence of residual, recurrent, or metastatic colonic carcinoma. Electronically Signed: Al Cotter MD at 16:57 EST Tel , Service support ,
[2020-08-03 16:38] LABS: Absolute Lymphocyte Count 2.04 X10^3/uL (0.83-4.51); Absolute Neutrophil Count 7.7 X10^3/uL (2.0-7.7); Basophil# 0.06 X10^3/uL; Basophil% 0.6 % (0-1); Eosinophils% 0.9 % (0-5); Hemoglobin 16.3 g/dL (13.0-16.5); Lymphocyte # 2.04 X10^3/ul (4.0); Mean Corp Hgb Conc 33.3 g/dL (32-36); Mean Corpuscular Hgb 28.7 pg (27.0-32.0); Mean Corpuscular Volume 86.4 fL (80-94); Mean Platelet Vol. 9.3 fl (6.2-12.0); Monocyte# 0.76 X10^3/uL; Monocyte% 7.1 % (0-10); NRBC Flagged by Analyzer 0 % (0-5); Neutrophil # 7.74 X10^3/uL (2.7-7.7); Neutrophil % 72.1 % (47-70); Platelet Count 230 K/mm3 (150-450); RBC Distribution Width CV 12.9 % (11.6-14.6); RBC Distribution Width SD 40.5 fl (35.1-43.9); Red Blood Count 5.67 M/mm3 (4.6-6.2); White Blood Count 10.7 K/mm3 (4.4-11.0)
[2020-08-03 16:56] LABS: ALB/GLOB Ratio 0.9 RATIO (0.9-2.4); AST(SGOT) 27 U/L (15-37); Alanine Aminotransfer ALT/SGPT 56 U/L (16-61); Albumin, Serum 3.8 g/dL (3.2-5.0); Alkaline Phosphatase 143 U/L (45-117); Anion Gap 6 (5-15); BUN 10 mg/dL (7-18); BUN/Creat Ratio 10.7 RATIO (10-20); Calcium,Total 9.3 mg/dL (8.5-10.1); Chloride 101 mmol/L (98-107); Creatinine, Serum 0.94 mg/dL (0.70-1.30); EST Glomerular Filtration Rate 88 mL/min (>60); Est Glom Filt Rate - Afr Amer 107 mL/min (>60); Globulin 4.3 g/dL (2.2-4.2); Glucose 208 mg/dL (74-106); LDH 166 U/L (87-241); Protein, Total 8.1 g/dL (6.4-8.2); Sodium Level 137 mmol/L (136-145)
[2020-08-05 13:17] LABS: Carcinoembryonic Antigen 1.8 ng/mL (0.0-4.7)
== END ==
PROVIDERS: PCP Family Medicine; Referring Provider Internal Medicine Medical Oncology; Visit Provider Internal Medicine Medical Oncology
DX: C18.7 Malignant neoplasm of sigmoid colon (principal)
CPT/HCPCS: 36415; 74177; 80053; 82378; 83615; 85025; Q9967

== ENCOUNTER 2020-09-06 13:17 | Outpatient (RCR) | payer BC, SELFPAY ==
[2020-08-10 15:30] VITALS: BMI 33.9
== END 2020-11-07 23:59 ==
LOC: IMMUN 13:17
PROVIDERS: PCP Family Medicine; Referring Provider Family Medicine; Visit Provider Family Medicine
DX: Z23 Encounter for immunization (principal)
CPT/HCPCS: 0001A; 0002A; 91300

== ENCOUNTER 2021-05-30 07:08 | Emergency (ER) | payer OTHER, BC, SELFPAY ==
[2021-05-30 07:09] VITALS: BP 134/121; PULSE 108; RESP 18; TEMP 37; O2SAT 99; BMI 32.7
[2021-05-30 07:38] VITALS: TEMP 37.1
--- NOTE | 2021-05-30 07:38 | EKG12_ITS ---
Test Reason : DIABETIC FOOT Blood Pressure : / mmHG Vent. Rate : 097 BPM Atrial Rate : 097 BPM P-R Int : 158 ms QRS Dur : 090 ms QT Int : 350 ms P-R-T Axes : 017 038 -06 degrees QTc Int : 444 ms Normal sinus rhythm Normal ECG Confirmed by VALERIY GERBER, CALLIE ([id number]), news assignment editor HEBER HEADLEY ([id number]) on 06/05/2021 10:22:05 AM Referred By: SAMMIE Confirmed By:CALLIE CROOKS MD
--- NOTE | 2021-05-30 07:39 | ED.VIS.LOWEX ---
HPI History of Present Illness Chief Complaint: Wound Narrative Narrative: 55-year-old male with left foot erythema adjacent to the 5th toe. He states he was initially seen by Dr. Rosen in office and given a shot of Rocephin and he has been on Augmentin twice daily for the last few days. Last night he states he had a fever at home and took Tylenol and this resolved. He states he had a cold last week but feels that he over this well. He does not have a cough or shortness of breath today. He states currently he feels otherwise well. The erythema on the left foot has spread somewhat proximally on the dorsal aspect of the foot however the plantar surface of the foot appears to be improved when compared to previous photos. It is mildly tender to palpation. Patient has not had any drainage. Patient referred to the ER because of failure of outpatient treatment. 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 Diabetes GERD (gastroesophageal reflux disease) Kidney stones Vertigo Home Medications metformin 1,000 mg PO BID 02/09/19 [History Last Taken 04/28/19 12:00] glimepiride 2 mg PO DAILY 08/09/19 [History Last Taken Unknown] Allergy/AdvReac Type Severity Reaction Status Date / Time No Known Allergies Allergy Verified 05/30/21 07:12 Family History Mother Diabetes CVA (cerebral vascular accident) Father Diabetes Hypertension Surgical History H/O umbilical hernia repair History of appendectomy History of colonoscopy S/P colectomy s/p insertion vascular port (~07/25/17) Social History Smoking Status: Never smoker alcohol intake: never substance use type: does not use ROS ROS ED Constitutional Constitutional ED: Reports fever(s); Denies chills Eyes Eyes: Denies blurry vision or diplopia ENT ENT ED: Denies rhinorrhea or sore throat Cardiovascular Cardiovascular: Denies chest pain or palpitations Respiratory/Chest Respiratory/Chest: Denies cough or dyspnea Gastrointestinal Gastrointestinal: Denies abdominal pain, nausea or vomiting Genitourinary Genitourinary ED: Denies dysuria or hematuria Musculoskeletal Musculoskeletal: Denies arthralgias or myalgias Integumentary Reports rash Neurologic Neurologic: Denies headache(s) or paresthesias EXAM Physical Exam Const Vital Signs: 05/30/21 07:09 05/30/21 07:38 05/30/21 10:36 Temperature 98.6 F 98.8 F 98.8 F Temperature Source Temporal Oral Temporal Pulse Rate 108 H Respiratory Rate 18 Blood Pressure 134/121 H Blood Pressure Mean 125 Pulse Ox 99 Oxygen Delivery Method Room Air Room Air 05/30/21 11:26 Temperature 98.9 F Temperature Source Temporal Pulse Rate 96 Respiratory Rate 15 Blood Pressure 129/86 H Blood Pressure Mean 100 Pulse Ox 97 Oxygen Delivery Method Room Air Positive well nourished General Appearance ED: NAD HEENT Reports moist mucous membranes normocephalic and atraumatic Eyes PERRL Resp normal respiratory effort and clear to auscultation bilaterally Cardio regular rhythm Rate: tachycardic Extremity Extremity Narrative: Erythema on the base of the 5th toe spreading proximally on the dorsal surface of the foot. There is some faint lymphangitic streaking up the anterior portion of the leg. The plantar surface does have some erythema which appears to be improved as compared to previous photos that the has. Mildly tender to palpation. No crepitance. MDM MDM MDM Narrative Medical decision making narrative: Patient presenting with foot cellulitis. He was sent in for failure of antibiotics treatment. Patient has slight leukocytosis of 12.1. He does report a fever last night so I did obtain blood cultures. These are pending. Coagulation studies are normal. Lactic acid is normal. Renal function electrolytes are also normal. CRP is elevated at 97.10 however the sed rate is normal. Chest x-ray on my interpretation is negative for acute findings is likely not a source for the patient's fever. Covid testing is negative today. X-ray of the left foot shows a small foreign body adjacent to the fifth toe which is likely the source of the infection. I spoke with Dr. Coleman who is willing to see the patient outpatient today at 1 PM in order to remove the foreign body. He recommended giving a dose of Levaquin since has been on Augmentin. Patient was given morphine for pain in the ER. He will follow-up outpatient with podiatry. Impression: 1. Cellulitis left foot 2. Foreign body left foot Lab Data Attestation: I reviewed the patient's lab results. Labs: Laboratory Results - last 24 hr 05/30/21 05/30/21 05/30/21 07:45 07:45 07:45 WBC 12.1 H RBC 5.58 Hgb 16.2 Hct 46.6 MCV 83.5 MCH 29.0 MCHC 34.8 RDW Std Deviation 38.3 RDW Coeff of Gwen 12.6 Plt Count 243 MPV 9.0 Immature Gran % (Auto) 0.600 Neut % (Auto) 75.7 H Lymph % (Auto) 14.6 L [place] % (Auto) 8.3 Eos % (Auto) 0.3 Baso % (Auto) 0.5 Absolute Neuts (auto) 9.1 H Absolute Lymphs (auto) 1.76 Nucleated RBC % 0 ESR 14 PT 13.5 INR 1.1 APTT 28.4 Sodium 134 L Potassium 3.6 Chloride 100 Carbon Dioxide 26.0 Anion Gap 8 BUN 12 Creatinine 1.09 Estim Creat Clear Calc 77.20 Est GFR (MDRD) Af Amer 90 Est GFR (MDRD) Non-Af 74 BUN/Creatinine Ratio 11.0 Glucose 251 H Lactic Acid Calcium 9.0 Total Bilirubin 1.30 H AST 24 ALT 38 Alkaline Phosphatase 188 H C-React Prot Ext Range 97.10 H Total Protein 7.8 Albumin 2.8 L Globulin 5.0 H Albumin/Globulin Ratio 0.6 L 05/30/21 07:45 WBC RBC Hgb Hct MCV MCH MCHC RDW Std Deviation RDW Coeff of Gwen Plt Count MPV Immature Gran % (Auto) Neut % (Auto) Lymph % (Auto) [place] % (Auto) Eos % (Auto) Baso % (Auto) Absolute Neuts (auto) Absolute Lymphs (auto) Nucleated RBC % ESR PT INR APTT Sodium Potassium Chloride Carbon Dioxide Anion Gap BUN Creatinine Estim Creat Clear Calc Est GFR (MDRD) Af Amer Est GFR (MDRD) Non-Af BUN/Creatinine Ratio Glucose Lactic Acid 1.5 Calcium Total Bilirubin AST ALT Alkaline Phosphatase C-React Prot Ext Range Total Protein Albumin Globulin Albumin/Globulin Ratio Radiography Diagnostic Testing: Clinical Impression(s) from Imaging Studies Chest X-Ray 05/30/21 08:05 IMPRESSION: No radiographic evidence of acute cardiopulmonary disease. at 0840 Reported and signed by: Remy Au MD Electronically Signed: Remy Au MD at 8:39 EST Tel , Service support , Foot X-Ray 05/30/21 08:05 IMPRESSION: Curvilinear radio opaque foreign body in the soft tissues under the base of the fifth toe. There are no osseous abnormalities. at 0842 Reported and signed by: Remy Au MD Electronically Signed: Remy Au MD at 8:41 EST Tel , Service support , Discharge Plan Triage Chief Complaint: Wound ED Provider: Alex Hurt Dx/Rx/DC Orders Instructions: ED Cellulitis, ED Foreign Body Soft Tissue Prescriptions: No Action metformin 1,000 MG tablet 1,000 mg PO BID RF: 0 glimepiride 2 MG tablet 2 mg PO DAILY RF: 0 Primary Care Provider: Andrei Rosen Referrals: Andrei Rosen MD [Primary Care Provider] - Disposition Disposition: Home, Self Care Discharge Date/Time: 05/30/21 11:29
[2021-05-30 08:00] LABS: Absolute Lymphocyte Count 1.76 X10^3/uL (0.83-4.51); Absolute Neutrophil Count 9.1 X10^3/uL (2.0-7.7); Basophil# 0.06 X10^3/uL; Basophil% 0.5 % (0-1); Eosinophil# 0.04 X10^3/uL; Eosinophils% 0.3 % (0-5); Hematocrit 46.6 % (40-54); Hemoglobin 16.2 g/dL (13.0-16.5); Lymphocyte # 1.76 X10^3/ul (0.83-4.51); Lymphocyte % 14.6 % (19-41); Mean Corp Hgb Conc 34.8 g/dL (32-36); Mean Corpuscular Volume 83.5 fL (80-94); Monocyte% 8.3 % (0-10); NRBC Flagged by Analyzer 0 % (0-5); Neutrophil # 9.14 X10^3/uL (2.7-7.7); Neutrophil % 75.7 % (47-70); Platelet Count 243 K/mm3 (150-450); RBC Distribution Width CV 12.6 % (11.6-14.6); RBC Distribution Width SD 38.3 fl (35.1-43.9); Red Blood Count 5.58 M/mm3 (4.6-6.2); White Blood Count 12.1 K/mm3 (4.4-11.0)
--- NOTE | 2021-05-30 08:05 | RAD_ITS ---
EXAM: XR LEFT FOOT COMPLETE, 3 OR MORE VIEWS : 1965 CLINICAL INDICATION: foot swelling TECHNIQUE: Frontal, lateral and oblique views of the left foot. This report was created using [employer] report generation technology. COMPARISON: None. FINDINGS: BONES/JOINTS: Unremarkable. No acute fracture. No subluxation. Normal alignment. Preservation of the joint space. No sclerotic or destructive changes observed. SOFT TISSUES: There is a curvilinear radio opaque foreign body seen in the soft tissues under the base of the proximal fifth phalanx. This measures roughly 2 mm. No soft tissue swelling or gas. RAD/Foot min 3 Views IMPRESSION: Curvilinear radio opaque foreign body in the soft tissues under the base of the fifth toe. There are no osseous abnormalities. at 0842 Reported and signed by: Remy Au MD Electronically Signed: Remy Au MD at 8:41 EST Tel , Service support ,
--- NOTE | 2021-05-30 08:05 | RAD_ITS ---
EXAM: XR CHEST, 1 VIEW : 1965 CLINICAL INDICATION: fever TECHNIQUE: Frontal view of the chest. This report was created using [employer] report generation technology. COMPARISON: None. FINDINGS: LUNGS AND PLEURAL SPACES: Unremarkable. No consolidation or edema. No pneumothorax. No effusion. HEART: Unremarkable. Cardiac silhouette not enlarged. MEDIASTINUM: Central airways and mediastinal contour are unremarkable. BONES/JOINTS: Unremarkable. SOFT TISSUES: Unremarkable. RAD/Chest 1 View (Portable) IMPRESSION: No radiographic evidence of acute cardiopulmonary disease. at 0840 Reported and signed by: Remy Au MD Electronically Signed: Remy Au MD at 8:39 EST Tel , Service support ,
[2021-05-30 08:08] LABS: Erythrocyte Sedimentation Rate 14 mm/hr (0-20)
[2021-05-30 08:14] LABS: ALB/GLOB Ratio 0.6 RATIO (0.9-2.4); AST(SGOT) 24 U/L (15-37); Alanine Aminotransfer ALT/SGPT 38 U/L (16-61); Albumin, Serum 2.8 g/dL (3.2-5.0); Alkaline Phosphatase 188 U/L (45-117); Anion Gap 8 (5-15); BUN 12 mg/dL (7-18); Chloride 100 mmol/L (98-107); Creatinine, Serum 1.09 mg/dL (0.70-1.30); EST Glomerular Filtration Rate 74 mL/min (>60); Est Glom Filt Rate - Afr Amer 90 mL/min (>60); Glucose 251 mg/dL (74-106); International Normalized Ratio 1.1; Potassium 3.6 mmol/L (3.5-5.1); Protein, Total 7.8 g/dL (6.4-8.2); Prothrombin Time (Protime)PT. 13.5 SECONDS (11.7-14.9); Sodium Level 134 mmol/L (136-145)
[2021-05-30 08:15] LABS: Partial Thromboplast Time 28.4 Seconds (24.1-36.2)
[2021-05-30 08:22] LABS: Lactic Acid 1.5 mmol/L (0.4-1.9)
[2021-05-30] MEDS: levoFLOXacin 750 MG Tablet PO (10:29)
[2021-05-30 10:36] VITALS: TEMP 37.1
[2021-05-30] MEDS: Morphine 4 MG/ML Syringe IV (10:47)
[2021-05-30 11:26] VITALS: BP 129/86; PULSE 96; RESP 15; TEMP 37.2; O2SAT 97
--- NOTE | 2021-05-30 11:27 | ED.RN ---
pt was observed for shot time greater than 20 min, no reaction noticed by this rn.
== END 2021-05-30 11:29 | disposition home or self-care (01) ==
PROVIDERS: Emergency Provider Student in an Organized Health Care Education/Training Program; PCP Family Medicine
DX: L03.116 Cellulitis of left lower limb (principal); S90.852A Superficial foreign body, left foot, initial encounter; X58.XXXA Exposure to other specified factors, initial encounter; Y93.9 Activity, unspecified; Y92.9 Unspecified place or not applicable; Y99.9 Unspecified external cause status; E11.9 Type 2 diabetes mellitus without complications; K21.9 Gastro-esophageal reflux disease without esophagitis; Z79.84 Long term (current) use of oral hypoglycemic drugs
CPT/HCPCS: 71045; 73630; 80053; 83605; 85025; 85610; 85652; 85730; 86140; 87040; 87070; 87075; 87077; 87186; 87205; 87426; 87640; 93005; 96374; 99285; A4216

== ENCOUNTER → 2021-05-30 | Outpatient (CLI) | payer OTHER, BC, SELFPAY ==
[2021-05-30 19:40] LABS: M R Staph aureus DNA By PCR Negative (Negative); Probe Check PASS; Specimen Processing Control PASS; Staph aureus DNA By PCR POSITIVE (Negative)
== END | disposition home or self-care (01) ==
LOC: LABSPEC 16:30
PROVIDERS: PCP Family Medicine; Visit Provider Podiatrist
DX: L03.116 Cellulitis of left lower limb (principal)
CPT/HCPCS: 87070; 87075; 87077; 87186; 87205; 87640

== ENCOUNTER 2021-07-24 08:30 | Outpatient (RCR) | payer OTHER, SELFPAY ==
[2021-07-03 09:06] VITALS: BP 154/86; PULSE 93; RESP 16; TEMP 37; BMI 32.3
--- NOTE | 2021-07-03 10:02 | PCM.WC.HP ---
History of Present Illness Date of Service: 07/03/21 Chief Complaint: Diabetic foot ulcer, left foot History of Wound: This 55-year-old male presents to clinic with a 1-month-old left diabetic foot ulceration. 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 He was seen in the ED on 05/30/2021 radiographs confirmed that there was residual metallic fragments within the wound site. Patient was treated for a lower extremity cellulitis at that time was placed on p.o. antibiotics for MSSA for 2 weeks. Patient was treated as an outpatient at the [facility] with Dr. Coleman who removed the metallic fragments within the office and debrided the wound. Since that time patient has noted significant improvement in the redness and swelling to the site as well as reduction in size of the wound. He has been offloading the site with a surgical shoe and offloading pad and performing daily dressing changes consisting of Betadine and dry sterile dressings. At this time patient denies any fever chills nausea vomiting chest pain calf pain shortness of breath. Denies any pain to the wound site as he admits he has minimal sensation in his feet. Denies any leg cramping with ambulation or at rest. [facility] Medical History (Updated 07/03/21 @ 10:[address] 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 Diabetes GERD (gastroesophageal reflux disease) Kidney stones Vertigo Home Medications metformin 1,000 mg PO BID 02/09/19 [History Last Taken 04/28/19 12:00] glimepiride 2 mg PO DAILY 08/09/19 [History Last Taken Unknown] Allergy/AdvReac Type Severity Reaction Status Date / Time No Known Allergies Allergy Verified 07/03/21 09:22 Family History Mother Diabetes CVA (cerebral vascular accident) Father Diabetes Hypertension Surgical History H/O umbilical hernia repair History of appendectomy History of colonoscopy S/P colectomy s/p insertion vascular port (~07/25/17) Social History Smoking Status: Never smoker alcohol intake: never substance use type: does not use Vital Signs Vital Signs Vital Signs: 07/03/21 09:06 Temperature 98.6 F Temperature Source Temporal Pulse Rate 93 Respiratory Rate 16 Blood Pressure 154/86 H Blood Pressure Mean 108 Blood Pressure Source Monitor Blood Pressure Position Sitting Blood Pressure Location Right Arm Oxygen Delivery Method Room Air Weight Weight: 102.058 kg Body Mass Index (BMI) 32.3 Physical Exam Narrative Patient alert and oriented to time. Patient ambulates unassisted in a surgical shoe with fifth metatarsal offloading pad. Vascular: Dorsalis pedis and posterior tibial pulses palpable 2 out of 4 to bilateral lower extremity capillary fill time brisk to digits 1 through 5 bilaterally. Palpation of the proximal distal yields a warm to warm sensation. She does demonstrate some loss of digital hair growth. There is noted be some thinning of the skin with scattered hemosiderin deposits. There is +1 pitting edema to bilateral lower extremity. Neurologic: Light touch protective sensation absent to bilateral feet. Dermatologic: 2 focal ulcerations to the left fifth metatarsal head one dorsal lateral and one plantar. These do not communicate. Demonstrate 100% granular bases with mild periwound hyperkeratosis. There is mild periwound edema and erythema along with warmth. No evidence of purulence or deep probing at this time. No evidence of fluctuance or crepitus with palpation of the periwound area. Musculoskeletal: No gross deformity noted at this time. Muscular strength for the bilateral lower extremity compartments. No pain with calf squeeze bilaterally. Debridement Note Debridement Note Wound debrided: Left foot wound x2 Laterality: Left Wound Grade/Stage: stage II Type of Debridement: Excisional debridement Anesthesia Used: - Depth: in the subcutaneous layer Percentage of wound debrided: 100 Instrument Used: #15 blade Tissue Removed: Nonviable tissue and periwound hyperkeratosis Severity: Fat Layer Exposed Amount of bleeding with debridement: Mild Bleeding Controlled with: Pressure Patient tolerated procedure: Patient tolerated procedure well Debridement Free Text: Left plantar and dorsal lateral foot wound were debrided down to and including the level of subcutaneous tissue of all nonviable tissue there is mild bleeding noted this was controlled with hemostasis patient tolerated procedure well. This was performed with a #15 blade without incident. Pre and post wound debridement measurements are noted in the nursing documentation of the wound sizes. Operative Diagnosis: L97.522 Post-Debridement Measurements and Additional Note: Post-Debridement Measurements/Treatment - Nurse 1 - General Ulcer Assessment Start: 07/03/21 09:06 Freq: Status: Active Protocol: PADILLA Activity Type Activity Date Activity User E-Sign Co-Sign Detail Recorded Client Recorded Date Recorded By Document 07/03/21 09:06 [facility] [id number] 07/03/21 09:21 [facility] 07/03/21 09:06 - Today's Visit Information Type of service Initial Visit Arrival Mode Ambulatory, Walker Transfer Assistance None Accompanied by Patient Identification Verified (Name & Yes ) Height and Weight Height 5 ft 10 in Weight 102.058 kg Weight in Pounds 225.0 lbs Weight Measurement Method Stated by Patient Body Mass Index (BMI) 32.3 BMI Classification Obese BSA - Magda 2.19 Vital Signs Temperature (97.8 F-99.1 F) 98.6 F Temperature Source Temporal Pulse Rate (60-100) 93 Pulse Location Monitor Respiratory Rate (12-18) 16 Respiratory rate source Observation Oxygen Delivery Method Room Air Blood Pressure (90/60-120/80) 154/86 H Blood Pressure Mean 108 Source Monitor Position Sitting Blood Pressure Location Right Arm History Since Last Visit- (Skip if this is Patient's initial visit) Left Footwear Surgical Shoe with pressure relief insole Right Footwear Regular Shoe Pain Scale: 0-10 Numeric Is Patient Pain Free? Yes Lower Extremity Assessment/ Foot Assessment/ Toe Nail Assessment Right -Posterior Tibial Palpable Yes -Posterior Tibial Doppler Multiphasic -Dorsalis Pedis Palpable Yes -Dorsalis Pedis Doppler Multiphasic -Extremity Color Hyperpigmented -Hair Growth on Legs Yes -Hair Growth on Toes No -Temperature of Extremity Warm -Other Deformity No -Prior Foot Ulcer No -Charcot Joint No -Prior Amputation No -Thick No -Discolored No -Deformed No -Improper Length & Hygeine No Left -Posterior Tibial Palpable Yes -Posterior Tibial Doppler Multiphasic -Dorsalis Pedis Palpable Yes -Dorsalis Pedis Doppler Multiphasic -Extremity Color Hyperpigmented -Hair Growth on Legs Yes -Hair Growth on Toes No -Temperature of Extremity Warm -Thick No -Discolored No -Deformed No -Improper Length & Hygeine No Neuropathy Assessment Feet - Top Side and Bottom <Entered> (a) Communication Assessment Preferred language Micronesian [employer] Admin Required No Able to Read Yes Able to Write Yes Communication Tools None Right Hearing Abillity Normal Left Hearing Abillity Normal Visual Assistive Devices Glasses Teaching Assessment Preferences Verbal,Written, Audio/Visual, Demonstration Barriers to Learning None Readiness To Learn Excellent Willingness to Engage in Self Management High Activies Readiness to Engage in Self Management High Activities Anxiety Level Calm Cooperation Cooperative Perception Coherent Interest in Health Problem Asks Questions Education Importance Acknowledges Need Does Patient Smoke tobacco or other No substances Smoking Status Never smoker Is Patient Diabetic Yes Functional Assessment Recent Decline in Ability to Perform Ambulation, Transferring Culture/Yazidism/Used Car Manager Cultural/Yazidism Needs that may affect No Treatment Plan Teaching: Wound Center *Welcome to the Wound Center -Person Taught Patient, Significant Other -Teaching Method Discussion -Response to teaching Verbalize understanding Welcome to the Wound Care Center Micronesian (a) 1 - + WC - Nurse 1 - General Ulcer Measurement Start: 07/03/21 09:06 Freq: Status: Active Protocol: Activity Type Activity Date Activity User E-Sign Co-Sign Detail Recorded Client Recorded Date Recorded By Document 07/03/21 09:06 [facility] [id number] 07/03/21 09:21 [facility] 07/03/21 09:06 Wound Center Nurse 1 #2- L LATERAL PLANTAR -Combined with other wound No -Current Size (cm) - Length 0.4 -Current Size (cm) - Width 0.3 -Current Size (cm) - Depth 0.3 -Total Square Cm 0.12 -Date of Last Picture (Recall this 07/03/21 field) -Photo Taken Yes -Epithelialization None Present -Tunneling No -Undermining/Tunneling Yes -Undermining/Tunneling Starts (O'clock 11 ) -Undermining/Tunneling Ends (O'clock) 3 -Maximum Distance (cm) 0.7 -Circular Undermining No -Exudate Amt Medium -Exudate Type Serosanguineous -Wound Margin Distinct, Outline Attached -Granulation Amt Medium (34-66%) -Granulation Quality Red -Slough/Fibrin Yes -Necrosis Amt Medium (34-66%) -Necrotic Tissue Type Adherent Slough -Texture (Kaylah-wound Skin Appearance) Assessed, Localized Edema ,Scarring -Moisture (Kaylah-wound Skin Appearance) Assessed -Color (Kaylah-wound Skin Appearance) Assessed, Erythema -Temperature (Kaylah-wound Skin No Abnormality Appearance) (Pt Warm) -Tenderness on Palpation (Kaylah-wound No Skin Appearance) -Ulcer Cleansing Soap and Water -Foul Odor after Cleansing Yes, Due to Product Use -Anesthetic Used 5% Lidocaine Gel #1- L LATERAL FOOT -Combined with other wound No -Current Size (cm) - Length 0.6 -Current Size (cm) - Width 0.5 -Current Size (cm) - Depth 0.1 -Total Square Cm 0.30 -Date of Last Picture (Recall this 07/03/21 field) -Photo Taken Yes -Epithelialization None Present -Tunneling No -Undermining/Tunneling No -Circular Undermining No -Exudate Amt Medium -Exudate Type Serosanguineous -Wound Margin Distinct, Outline Attached -Granulation Amt Large (67-100%) -Granulation Quality Red -Slough/Fibrin Yes -Necrosis Amt Small (1-33%) -Necrotic Tissue Type Adherent Slough -Texture (Kaylah-wound Skin Appearance) Assessed, Localized Edema ,Scarring -Moisture (Kaylah-wound Skin Appearance) Assessed -Color (Kaylah-wound Skin Appearance) Assessed, Erythema -Temperature (Kaylah-wound Skin No Abnormality Appearance) (Pt Warm) -Tenderness on Palpation (Kaylah-wound No Skin Appearance) -Ulcer Cleansing Soap and Water -Foul Odor after Cleansing No -Anesthetic Used 5% Lidocaine Gel Lower Limb Edema Present Yes Right Calf (cm) 40.4 Right Ankle (cm) 21 Left Calf (cm) 38.2 Left Ankle (cm) 21.5 WC - Nurse 3 - General Ulcer D/C NN Start: 07/03/21 09:06 Freq: Status: Active Protocol: Activity Type Activity Date Activity User E-Sign Co-Sign Detail Recorded Client Recorded Date Recorded By Document 07/03/21 09:52 MW [id number] 07/03/21 09:55 MW 07/03/21 09:52 Wound Care Nurse 3 #2- L LATERAL PLANTAR -Ulcer Cleansing Rinsed/ Irrigated with Saline -Foul Odor after Cleansing No -Negative Pressure Wound Therapy N/A -Other Dressing beteadine -Primary Dressing Covered/Secured with Dry Gauze & Roll Gauze, Secured with Tape #1- L LATERAL FOOT -Ulcer Cleansing Rinsed/ Irrigated with Saline -Foul Odor after Cleansing No -Negative Pressure Wound Therapy N/A -Other Dressing Betadine -Primary Dressing Covered/Secured with Dry Gauze & Roll Gauze, Secured with Tape Left -Size of Tubigrip Used Size D -Size D ($) 1 Treatment Response Procedure Tolerated Well Pain Scale: 0-10 Numeric Is Patient Pain Free? Yes Teaching: Wound Center Dressing Your Wound -Person Taught Patient,Family -Teaching Method Demonstration -Response to teaching Verbalize understanding WC - Visit Discharge Discharge Condition Stable Ambulatory Status Ambulatory, Walker Transportation Private Auto Accompanied by Medication Reconcilliation completed & No provided to patient/care provider Clinical Summary of Care Provided Yes Assessment/Plan Assessment/Plan (1) Non-pressure chronic ulcer of other part of left foot with fat layer exposed: CODE(S): L97.522 - Non-pressure chronic ulcer of other part of left foot with fat layer exposed PLAN: Patient examined evaluate off discussed patient in detail. A detailed history and physical was performed. At this time I have determined patient has diabetic neuropathy with secondary foot ulceration and microvascular disease. Patient uncertain of her current blood glucose control. Relates last hemoglobin A1c was 8.2 uncertain when this was drawn. At this time I recommend full work-up including; left foot radiographs blood work (CBC BMP prealbumin CRP ESR hemoglobin A1c), noninvasive vascular studies. This will give us a baseline and see if there is any vascular or nutritional defects contributing to nonhealing of the wound. Patient also has a history of adenocarcinoma of the colon which she is been 4 years clean from. He no longer takes any chemotherapeutic agents at this time. His left food foot wound was excisionally debrided. This wound was cleansed with normal sterile saline, then swab culture and MRSA PCR testing performed. Due to some mild erythema and warmth I recommend treatment of cellulitis with oral antibiotics per p.o. Keflex 500 mg twice daily. Patient will do this for 14 days, this may be subject to change pending culture results Patient will remain off work for an additional 2 weeks, he was instructed that he may miss up to additional 1 to 2 months pending any setbacks with wound healing. Patient will continue offloading the wound in a surgical shoe with 1/5 metatarsal offloading pad. I do recommend total contact casting in this patient as I believe it would allow him better offloading in a more rapid healing process. Patient may also qualify for some advanced wound care products pending any delayed healing. He will follow up in 1 week at which time we will review his lab and radiographic studies as well as culture results and address anything that may be deficient at that time. (2) Peripheral vascular disease, unspecified: CODE(S): I73.9 - Peripheral vascular disease, unspecified (3) Type 2 diabetes mellitus with diabetic neuropathy, unspecified: CODE(S): E11.40 - Type 2 diabetes mellitus with diabetic neuropathy, unspecified (4) Cellulitis: CODE(S): L03.90 - Cellulitis, unspecified
--- NOTE | 2021-07-03 10:17 | RAD_ITS ---
STUDY: X-RAY - LEFT FOOT CLINICAL: Male, 55 years old. ULCER TECHNIQUE: 3 view(s) of the foot. COMPARISON: None. FINDINGS: Normal talus and tarsal bones. Calcaneal spurs Normal visualized subtalar, talonavicular, calcaneocuboid, tarsal and tarsometatarsal articulations. Normal metatarsi. Normal metatarsophalangeal joint of the great toe. Normal tibial and fibular sesamoid bones. Normal interphalangeal joint of the great toe. Normal phalanges of the great toe. Normal second through fifth metatarsophalangeal joints. Normal interphalangeal joints and phalanges of the lesser toes. The soft tissue structures are unremarkable. RAD/Foot min 3 Views IMPRESSION: Calcaneal spurs, no demonstrated fracture or suspicious osseous lesion Electronically Signed: John Duff MD at 11:39 EST ,
[2021-07-03 11:13] LABS: Hematocrit 45.6 % (40-54); Hemoglobin 15.5 g/dL (13.0-16.5); Mean Corpuscular Hgb 28.1 pg (27.0-32.0); Mean Corpuscular Volume 82.8 fL (80-94); Mean Platelet Vol. 9.4 fl (6.2-12.0); Platelet Count 242 K/mm3 (150-450); RBC Distribution Width CV 13.3 % (11.6-14.6); Red Blood Count 5.51 M/mm3 (4.6-6.2); White Blood Count 9.6 K/mm3 (4.4-11.0)
[2021-07-03 11:53] LABS: Hemoglobin A1c 10.5 % (3.8-5.6)
[2021-07-03 12:00] LABS: Anion Gap 6 (5-15); BUN 11 mg/dL (7-18); BUN/Creat Ratio 11.8 RATIO (10-20); CRP 4.09 mg/L (0.0-3.0); Calcium,Total 9.2 mg/dL (8.5-10.1); Chloride 102 mmol/L (98-107); Creatinine, Serum 0.94 mg/dL (0.70-1.30); EST Glomerular Filtration Rate 88 mL/min (>60); Est Glom Filt Rate - Afr Amer 107 mL/min (>60); Estimated Creatinine Clearance 89.52 ml/min; Glucose 279 mg/dL (74-106); Potassium 4.1 mmol/L (3.5-5.1); Sodium Level 136 mmol/L (136-145)
[2021-07-03 12:22] LABS: Erythrocyte Sedimentation Rate 14 mm/hr (0-20)
[2021-07-03 14:29] LABS: M R Staph aureus DNA By PCR Negative (Negative); Probe Check PASS; Specimen Processing Control PASS; Staph aureus DNA By PCR NEGATIVE (Negative)
[2021-07-10 08:56] VITALS: BP 159/92; PULSE 75; RESP 16; TEMP 35.9; BMI 32.3
--- NOTE | 2021-07-10 09:37 | PCM.WC.PN ---
History of Present Illness Date of Service: 07/10/21 Chief Complaint: Diabetic foot ulcer, left foot History of Wound: This 55-year-old male presents to clinic for follow-up on a left foot ulceration x2. This is a work-related injury which patient had metal fragments within his shoe that caused some friction created ulcerations to his fifth metatarsal head which secondarily became infected and was treated for for MSSA for 2 weeks. The infection has since resolved. Patient denies any fever, chills, nausea, vomiting, chest pain, calf pain, shortness of breath today. Patient has been offloading site with surgical shoe and 1/5 metatarsal head offloading pad. They have been performing self dressing changes daily with Betadine paint DSD and Tubigrip for compression. Objective Data Objective Data Vital Signs: Vital Signs Temp Pulse Resp BP 96.6 F L 75 16 159/92 H 07/10/21 08:56 07/10/21 08:56 07/10/21 08:56 07/10/21 08:56 Oxygen Delivery Method Room Air Weight: 102.058 kg Body Mass Index (BMI) 32.3 Lab / Micro Data Result Diagrams: 07/03/21 10:45 07/03/21 10:45 Micro: Microbiology 07/03/21 09:40 Wound Abcess - Left Foot Gram Stain - Final 07/03/21 09:40 Wound Abcess - Left Foot Wound Culture - Final Staphylococcus epidermidis 07/03/21 09:40 Wound Abcess - Left Foot Anaerobic Culture - Final No growth in 5 days. Physical Exam Narrative Patient alert and oriented to time. Patient ambulates unassisted in a surgical shoe with fifth metatarsal offloading pad. Vascular: Dorsalis pedis and posterior tibial pulses palpable 2 out of 4 to bilateral lower extremity capillary fill time brisk to digits 1 through 5 bilaterally. Palpation of the proximal distal yields a warm to warm sensation. She does demonstrate some loss of digital hair growth. There is noted be some thinning of the skin with scattered hemosiderin deposits. There is +1 pitting edema to bilateral lower extremity. Neurologic: Light touch protective sensation absent to bilateral feet. Dermatologic: 2 focal ulcerations to the left fifth metatarsal head one dorsal lateral and one plantar. These do not communicate. Demonstrate 100% granular bases with mild periwound hyperkeratosis. There is resolved periwound edema and erythema along with warmth. No evidence of purulence or deep probing at this time. No evidence of fluctuance or crepitus with palpation of the periwound area. Foot ulceration size as documented in the nursing notes, this includes pre and post debridement measurements. Musculoskeletal: No gross deformity noted at this time. Muscular strength for the bilateral lower extremity compartments. No pain with calf squeeze bilaterally. Debridement Note Debridement Note Post-Debridement Measurements and Additional Note: Post-Debridement Measurements/Treatment - Nurse 1 - General Ulcer Assessment Start: 07/03/21 09:06 Freq: Status: Active Protocol: WC.LOWEXT Activity Type Activity Date Activity User E-Sign Co-Sign Detail Recorded Client Recorded Date Recorded By Document 07/03/21 09:06 [facility] [id number] 07/03/21 09:21 [facility] Document 07/10/21 08:56 [facility] [id number] 07/10/21 09:03 [facility] 07/03/21 07/10/21 09:06 08:56 - Today's Visit Information Type of service Initial Visit Follow-up Visit (Physician/[employer]ING [employer]SULTANT ) Arrival Mode Ambulatory, Ambulatory, Walker Walker Transfer Assistance None None Accompanied by Patient Identification Verified (Name & Yes Yes ) Patient Requires Transmission-Based No Precautions Height and Weight Height 5 ft 10 in Weight 102.058 kg Weight in Pounds 225.0 lbs Weight Measurement Method Stated by Patient Body Mass Index (BMI) 32.3 32.3 BMI Classification Obese Obese BSA - Magda 2.19 Vital Signs Temperature (97.8 F-99.1 F) 98.6 F 96.6 F L Temperature Source Temporal Temporal Pulse Rate (60-100) 93 75 Pulse Location Monitor Monitor Respiratory Rate (12-18) 16 16 Respiratory rate source Observation Observation Oxygen Delivery Method Room Air Room Air Blood Pressure (90/60-120/80) 154/86 H 159/92 H Blood Pressure Mean (mm Hg) 108 114 Source Monitor Monitor Position Sitting Sitting Blood Pressure Location Right Arm Left Arm Have you changed medications since your No last visit? Any new allergies or adverse reactions No Had a fall/change in ADL's that may No increase risk of falls Signs or symptoms of abuse and/or No neglect since last visit Have you been in the hospital since your No last visit? Has dressing in place as prescribed Yes Has compression in place as prescribed Yes Has offloadiing in place as prescribed Yes Experienced any changes in pain level or No management History Since Last Visit- (Skip if this is Patient's initial visit) Left Footwear Surgical Shoe Surgical Shoe with pressure with pressure relief insole relief insole Right Footwear Regular Shoe Regular Shoe Pain Scale: 0-10 Numeric Is Patient Pain Free? Yes Yes Lower Extremity Assessment/ Foot Assessment/ Toe Nail Assessment Right -Posterior Tibial Palpable Yes -Posterior Tibial Doppler Multiphasic -Dorsalis Pedis Palpable Yes -Dorsalis Pedis Doppler Multiphasic -Extremity Color Hyperpigmented -Hair Growth on Legs Yes -Hair Growth on Toes No -Temperature of Extremity Warm -Other Deformity No -Prior Foot Ulcer No -Charcot Joint No -Prior Amputation No -Thick No -Discolored No -Deformed No -Improper Length & Hygeine No Left -Posterior Tibial Palpable Yes -Posterior Tibial Doppler Multiphasic -Dorsalis Pedis Palpable Yes -Dorsalis Pedis Doppler Multiphasic -Extremity Color Hyperpigmented -Hair Growth on Legs Yes -Hair Growth on Toes No -Temperature of Extremity Warm -Thick No -Discolored No -Deformed No -Improper Length & Hygeine No Neuropathy Assessment Feet - Top Side and Bottom <Entered> (a) Communication Assessment Preferred language Swazi Scarifier Operator Required No Able to Read Yes Able to Write Yes Communication Tools None Right Hearing Abillity Normal Left Hearing Abillity Normal Visual Assistive Devices Glasses Teaching Assessment Preferences Verbal,Written, Audio/Visual, Demonstration Barriers to Learning None Readiness To Learn Excellent Willingness to Engage in Self Management High Activies Readiness to Engage in Self Management High Activities Anxiety Level Calm Cooperation Cooperative Perception Coherent Interest in Health Problem Asks Questions Education Importance Acknowledges Need Does Patient Smoke tobacco or other No substances Smoking Status Never smoker Is Patient Diabetic Yes Functional Assessment Recent Decline in Ability to Perform Ambulation, 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/Anabaptism Needs that may affect No Treatment Plan Teaching: Wound Center *Welcome to the Wound Center -Person Taught Patient, Significant Other -Teaching Method Discussion -Response to teaching Verbalize understanding Welcome to the Wound Care Center Swazi (a) 1 - + WC - Nurse 1 - General Ulcer Measurement Start: 07/03/21 09:06 Freq: Status: Active Protocol: Activity Type Activity Date Activity User E-Sign Co-Sign Detail Recorded Client Recorded Date Recorded By Document 07/03/21 09:06 [facility] [id number] 07/03/21 09:21 [facility] Document 07/10/21 08:56 [facility] [id number] 07/10/21 09:03 [facility] 07/03/21 07/10/21 09:06 08:56 Wound Center Nurse 1 #2- L LATERAL PLANTAR -Combined with other wound No No -Current Size (cm) - Length 0.4 0.1 -Current Size (cm) - Width 0.3 0.1 -Current Size (cm) - Depth 0.3 0.1 -Total Square Cm 0.12 0.01 -Date of Last Picture (Recall this 07/03/21 07/10/21 field) -Photo Taken Yes Yes -Epithelialization None Present Large 67-100% -Tunneling No No -Undermining/Tunneling Yes No -Undermining/Tunneling Starts (O'clock 11 ) -Undermining/Tunneling Ends (O'clock) 3 -Maximum Distance (cm) 0.7 -Circular Undermining No No -Exudate Amt Medium None Present -Exudate Type Serosanguineous -Wound Margin Distinct, Distinct, Outline Outline Attached Attached -Granulation Amt Medium (34-66%) -Granulation Quality Red -Slough/Fibrin Yes -Necrosis Amt Medium (34-66%) -Necrotic Tissue Type Adherent Slough -Texture (Kaylah-wound Skin Appearance) Assessed, Callus,Scarring Localized Edema ,Scarring -Moisture (Kaylah-wound Skin Appearance) Assessed Assessed -Color (Kaylah-wound Skin Appearance) Assessed, Assessed Erythema -Temperature (Kaylah-wound Skin No Abnormality No Abnormality Appearance) (Pt Warm) (Pt Warm) -Tenderness on Palpation (Kaylah-wound No No Skin Appearance) -Ulcer Cleansing Soap and Water Soap and Water -Foul Odor after Cleansing Yes, Due to No Product Use -Anesthetic Used 5% Lidocaine 5% Lidocaine Gel Gel #1- L LATERAL FOOT -Combined with other wound No No -Current Size (cm) - Length 0.6 0.5 -Current Size (cm) - Width 0.5 0.5 -Current Size (cm) - Depth 0.1 0.2 -Total Square Cm 0.30 0.25 -Date of Last Picture (Recall this 07/03/21 07/10/21 field) -Photo Taken Yes Yes -Epithelialization None Present None Present -Tunneling No No -Undermining/Tunneling No No -Circular Undermining No No -Exudate Amt Medium Medium -Exudate Type Serosanguineous Serosanguineous -Wound Margin Distinct, Distinct, Outline Outline Attached Attached -Granulation Amt Large (67-100%) Large (67-100%) -Granulation Quality Red Red -Slough/Fibrin Yes Yes -Necrosis Amt Small (1-33%) Small (1-33%) -Necrotic Tissue Type Adherent Slough Adherent Slough -Texture (Kaylah-wound Skin Appearance) Assessed, Assessed, Localized Edema Scarring ,Scarring -Moisture (Kaylah-wound Skin Appearance) Assessed Assessed -Color (Kaylah-wound Skin Appearance) Assessed, Assessed Erythema -Temperature (Kaylah-wound Skin No Abnormality No Abnormality Appearance) (Pt Warm) (Pt Warm) -Tenderness on Palpation (Kaylah-wound No No Skin Appearance) -Ulcer Cleansing Soap and Water Soap and Water -Foul Odor after Cleansing No No -Anesthetic Used 5% Lidocaine 5% Lidocaine Gel Gel Lower Limb Edema Present Yes Yes Right Calf (cm) 40.4 Right Ankle (cm) 21 Left Calf (cm) 38.2 39.5 Left Ankle (cm) 21.5 21.6 WC - Nurse 2 - General Ulcer CM Notes Start: 07/03/21 09:06 Freq: Status: Active Protocol: Activity Type Activity Date Activity User E-Sign Co-Sign Detail Recorded Client Recorded Date Recorded By Document 07/03/21 09:45 EMERSON [id number] 07/03/21 10:02 EMERSON 07/03/21 09:45 Wound Center Nurse 2 #2- L LATERAL PLANTAR -Time 09:45 -Correct Patient Yes -Correct Side, Site, Position Yes -Correct Procedure Yes -Procedure Performed Yes -Type of Procedure Debridement -Clinical Debridement Subcutaneous -Tissue Removed Subcutaneous -Post Debridement (cm) - Length 0.4 -Post Debridement (cm) - Width 0.4 -Post Debridement (cm) - Depth 0.3 -Total Square (Post) (cm) 0.16 -Area of Debridement (cm) - Length 0.4 -Area of Debridement (cm) - Width 0.4 -Total Square (Area) (cm) 0.16 -Tunneling No -Undermining/Tunneling No -Circular Undermining No -Wound/Ulcer Outcome Not Healed -Ulcer Cleansing Wound Cleanser -Foul Odor after Cleansing No -Bioengineered Tissue No -Bleeding Controlled with Pressure -Offloading Yes -Type of Offloading Surgical Shoe -Treatment Response Procedure Tolerated Well -Debridement - Subq, 1st 20sq cm No #1- L LATERAL FOOT -Time 09:45 -Correct Patient Yes -Correct Side, Site, Position Yes -Correct Procedure Yes -Procedure Performed Yes -Type of Procedure Debridement -Clinical Debridement Subcutaneous -Tissue Removed Subcutaneous -Post Debridement (cm) - Length 0.6 -Post Debridement (cm) - Width 0.5 -Post Debridement (cm) - Depth 0.2 -Total Square (Post) (cm) 0.30 -Area of Debridement (cm) - Length 0.6 -Area of Debridement (cm) - Width 0.5 -Total Square (Area) (cm) 0.30 -Tunneling No -Undermining/Tunneling No -Circular Undermining No -Wound/Ulcer Outcome Not Healed -Ulcer Cleansing Rinsed/ Irrigated with Saline -Foul Odor after Cleansing No -Bioengineered Tissue No -Bleeding Controlled with Pressure -Offloading Yes -Type of Offloading Surgical Shoe -Treatment Response Procedure Tolerated Well -Debridement - Subq, 1st 20sq cm Yes Pain Scale: 0-10 Numeric Is Patient Pain Free? Yes WC - Nurse 3 - General Ulcer D/C NN Start: 07/03/21 09:06 Freq: Status: Active Protocol: Activity Type Activity Date Activity User E-Sign Co-Sign Detail Recorded Client Recorded Date Recorded By Document 07/03/21 09:52 MW [id number] 07/03/21 09:55 MW 07/03/21 09:52 Wound Care Nurse 3 #2- L LATERAL PLANTAR -Ulcer Cleansing Rinsed/ Irrigated with Saline -Foul Odor after Cleansing No -Negative Pressure Wound Therapy N/A -Other Dressing beteadine -Primary Dressing Covered/Secured with Dry Gauze & Roll Gauze, Secured with Tape #1- L LATERAL FOOT -Ulcer Cleansing Rinsed/ Irrigated with Saline -Foul Odor after Cleansing No -Negative Pressure Wound Therapy N/A -Other Dressing Betadine -Primary Dressing Covered/Secured with Dry Gauze & Roll Gauze, Secured with Tape Left -Size of Tubigrip Used Size D -Size D ($) 1 Treatment Response Procedure Tolerated Well Pain Scale: 0-10 Numeric Is Patient Pain Free? Yes Teaching: Wound Center Dressing Your Wound -Person Taught Patient,Family -Teaching Method Demonstration -Response to teaching Verbalize understanding WC - Visit Discharge Discharge Condition Stable Ambulatory Status Ambulatory, Walker Transportation Private Auto Accompanied by Medication Reconcilliation completed & No provided to patient/care provider Clinical Summary of Care Provided Yes Assessment/Plan Assessment/Plan (1) Non-pressure chronic ulcer of other part of left foot with fat layer exposed: CODE(S): L97.522 - Non-pressure chronic ulcer of other part of left foot with fat layer exposed PLAN: Patient examined evaluate off discussed patient in detail. Patient is awaiting vascular testing results. Wound cultures demonstrated staph epidermidis, this is normal skin gianfranco at this time no reason for any antibiotics. Patient has no evidence of leukocytosis, hemoglobin 15.5, hematocrit 45.6, platelets 242, prealbumin 2.2 Albumin 2.8 CRP 4.09 BUN 11, creatinine 0.94. Due to slightly decreased albumin levels I recommend supplementation with Glucerna. Wound x2 was excisionally debrided this documented in the nursing notes. Wound dressed with Shahrzad dry sterile dressing and a total contact cast. Total contact casting will allow weightbearing while offloading the wound site adequate padding was used to prevent any signs of irritation from the cast. Patient will continue to be seen on a weekly basis at this time I recommended that he does not have to fill his antibiotic prescription. He is demonstrating significant progress and we will continue current treatment unless there are any complications such as wound worsening or infection. (2) Peripheral vascular disease, unspecified: CODE(S): I73.9 - Peripheral vascular disease, unspecified (3) Type 2 diabetes mellitus with diabetic neuropathy, unspecified: CODE(S): E11.40 - Type 2 diabetes mellitus with diabetic neuropathy, unspecified (4) Cellulitis: CODE(S): L03.90 - Cellulitis, unspecified
[2021-07-18 09:39] VITALS: BP 165/92; PULSE 91; RESP 20; TEMP 36.8; BMI 32.3
--- NOTE | 2021-07-18 10:51 | PN.PCM_ITS ---
History of Present Illness Date of Service: 07/18/21 Chief Complaint: Diabetic foot ulcer, left foot History of Wound: This 55-year-old male presents to clinic for follow-up on a left foot ulceration x2. This is a work-related injury which patient had metal fragments within his shoe that caused some friction created ulcerations to his fifth metatarsal head which secondarily became infected and was treated for for MSSA for 2 weeks. The infection has since resolved. Patient denies any fever, chills, nausea, vomiting, chest pain, calf pain, shortness of breath today. Patient has been offloading site a total contact cast. Progress of Wound: Improving Objective Data Objective Data Vital Signs: Vital Signs Temp Pulse Resp BP 98.2 F 91 20 H 165/92 H 07/18/21 09:39 07/18/21 09:39 07/18/21 09:39 07/18/21 09:39 Oxygen Delivery Method Room Air Weight: 102.058 kg Body Mass Index (BMI) 32.3 Lab / Micro Data Result Diagrams: 07/03/21 10:45 07/03/21 10:45 Micro: Microbiology 07/03/21 09:40 Wound Abcess - Left Foot Gram Stain - Final 07/03/21 09:40 Wound Abcess - Left Foot Wound Culture - Final Staphylococcus epidermidis 07/03/21 09:40 Wound Abcess - Left Foot Anaerobic Culture - Final No growth in 5 days. Physical Exam Narrative Patient alert and oriented to time. Patient ambulates unassisted in a surgical shoe with fifth metatarsal offloading pad. Vascular: Dorsalis pedis and posterior tibial pulses palpable 2 out of 4 to bilateral lower extremity capillary fill time brisk to digits 1 through 5 bilaterally. demonstrate some loss of digital hair growth. There is noted be some thinning of the skin with scattered hemosiderin deposits. There is +1 pitting edema to bilateral lower extremity. Neurologic: Light touch protective sensation absent to bilateral feet. Dermatologic: 2 focal ulcerations to the left fifth metatarsal head one dorsal lateral (healed today with full epithelialization) and one plantar. plantar site Demonstrate 100% granular bases with mild periwound hyperkeratosis. There is resolved periwound edema and erythema along with warmth. No evidence of purulence or deep probing at this time. No evidence of fluctuance or crepitus with palpation of the periwound area. Foot ulceration size as documented in the nursing notes, this includes pre and post debridement measurements. Musculoskeletal: No gross deformity noted at this time. Muscular strength for the bilateral lower extremity compartments. No pain with calf squeeze bilaterally. Debridement Note Debridement Note Wound debrided: left plantar lateral foot Wound Grade/Stage: 1 Type of Debridement: Excisional debridement Anesthesia Used: 4% Lidocaine Solution Depth: in the subcutaneous layer Percentage of wound debrided: 100 Instrument Used: #15 blade Tissue Removed: fibrous, devitalized subcutaneous, biofilm, slough Severity: Fat Layer Exposed Amount of bleeding with debridement: Mild Bleeding Controlled with: Pressure Patient tolerated procedure: Patient tolerated procedure well Post-Debridement Measurements and Additional Note: Post-Debridement Measurements/Treatment - Nurse 1 - General Ulcer Assessment Start: 07/03/21 09:06 Freq: Status: Active Protocol: PADILLA Activity Type Activity Date Activity User E-Sign Co-Sign Detail Recorded Client Recorded Date Recorded By Document 07/03/21 09:06 [facility] [id number] 07/03/21 09:21 [facility] Document 07/10/21 08:56 BM [id number] 07/10/21 09:03 [facility] Document 07/18/21 09:39 DL [id number] 07/18/21 09:58 DL 07/03/21 07/10/21 07/18/21 09:06 08:56 09:39 - Today's Visit Information Type of service Initial Visit Follow-up Visit Follow-up Visit (Physician/TRADER (Physician/TRADER ) ) Arrival Mode Ambulatory, Ambulatory, Ambulatory, Walker Walker Walker Transfer Assistance None None None Accompanied by Patient Identification Verified (Name & Yes Yes Yes ) Patient Requires Transmission-Based No No Precautions Finger Stick Blood Sugar(mg/dl) (if didnt check indicated): Blood Sugar Stated by Patient Height and Weight Height 5 ft 10 in Weight 102.058 kg Weight in Pounds 225.0 lbs Weight Measurement Method Stated by Patient Body Mass Index (BMI) 32.3 32.3 32.3 BMI Classification Obese Obese Obese BSA - Magda 2.19 Vital Signs Temperature (97.8 F-99.1 F) 98.6 F 96.6 F L 98.2 F Temperature Source Temporal Temporal Temporal Pulse Rate (60-100) 93 75 91 Pulse Location Monitor Monitor Monitor Respiratory Rate (12-18) 16 16 20 H Respiratory rate source Observation Observation Observation Oxygen Delivery Method Room Air Room Air Blood Pressure (90/60-120/80) 154/86 H 159/92 H 165/92 H Blood Pressure Mean (mm Hg) 108 114 116 Source Monitor Monitor Monitor Position Sitting Sitting Blood Pressure Location Right Arm Left Arm Have you changed medications since your No No last visit? Any new allergies or adverse reactions No No Had a fall/change in ADL's that may No No increase risk of falls Signs or symptoms of abuse and/or No No neglect since last visit Have you been in the hospital since your No No last visit? Has dressing in place as prescribed Yes Yes Has compression in place as prescribed Yes N/A Has offloadiing in place as prescribed Yes Yes Experienced any changes in pain level or No No management History Since Last Visit- (Skip if this is Patient's initial visit) Left Footwear Surgical Shoe Surgical Shoe Total Contact with pressure with pressure Cast relief insole relief insole Right Footwear Regular Shoe Regular Shoe Pain Scale: 0-10 Numeric Is Patient Pain Free? Yes Yes Yes Lower Extremity Assessment/ Foot Assessment/ Toe Nail Assessment Right -Posterior Tibial Palpable Yes -Posterior Tibial Doppler Multiphasic -Dorsalis Pedis Palpable Yes -Dorsalis Pedis Doppler Multiphasic -Extremity Color Hyperpigmented -Hair Growth on Legs Yes -Hair Growth on Toes No -Temperature of Extremity Warm -Other Deformity No -Prior Foot Ulcer No -Charcot Joint No -Prior Amputation No -Thick No -Discolored No -Deformed No -Improper Length & Hygeine No Left -Posterior Tibial Palpable Yes -Posterior Tibial Doppler Multiphasic -Dorsalis Pedis Palpable Yes -Dorsalis Pedis Doppler Multiphasic -Extremity Color Hyperpigmented -Hair Growth on Legs Yes -Hair Growth on Toes No -Temperature of Extremity Warm -Thick No -Discolored No -Deformed No -Improper Length & Hygeine No Neuropathy Assessment Feet - Top Side and Bottom <Entered> (a) Communication Assessment Preferred language Telugu 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 Able to Read Yes Able to Write Yes Communication Tools None Right Hearing Abillity Normal Left Hearing Abillity Normal Visual Assistive Devices Glasses Teaching Assessment Preferences Verbal,Written, Audio/Visual, Demonstration Barriers to Learning None Readiness To Learn Excellent Willingness to Engage in Self Management High Activies Readiness to Engage in Self Management High Activities Anxiety Level Calm Cooperation Cooperative Perception Coherent Interest in Health Problem Asks Questions Education Importance Acknowledges Need Does Patient Smoke tobacco or other No substances Smoking Status Never smoker Is Patient Diabetic Yes Functional Assessment Recent Decline in Ability to Perform Ambulation, Transferring Culture/Druze/Computer 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 Cultural/Druze Needs that may affect No Treatment Plan Teaching: Wound Center *Welcome to the Wound Center -Person Taught Patient, Significant Other -Teaching Method Discussion -Response to teaching Verbalize understanding Welcome to the Wound Care Center Telugu (a) 1 - + WC - Nurse 1 - General Ulcer Measurement Start: 07/03/21 09:06 Freq: Status: Active Protocol: Activity Type Activity Date Activity User E-Sign Co-Sign Detail Recorded Client Recorded Date Recorded By Document 07/03/21 09:06 [facility] [id number] 07/03/21 09:21 [facility] Document 07/10/21 08:56 [facility] [id number] 07/10/21 09:03 [facility] Document 07/18/21 09:39 DL [id number] 07/18/21 09:58 DL 07/03/21 07/10/21 07/18/21 09:06 08:56 09:39 Wound Center Nurse 1 #2- L LATERAL PLANTAR -Combined with other wound No No -Current Size (cm) - Length 0.4 0.1 0.9 -Current Size (cm) - Width 0.3 0.1 2.2 -Current Size (cm) - Depth 0.3 0.1 0.1 -Total Square Cm 0.12 0.01 1.98 -Date of Last Picture (Recall this 07/03/21 07/10/21 field) -Photo Taken Yes Yes No -Epithelialization None Present Large 67-100% -Tunneling No No -Undermining/Tunneling Yes No -Undermining/Tunneling Starts (O'clock 11 ) -Undermining/Tunneling Ends (O'clock) 3 -Maximum Distance (cm) 0.7 -Circular Undermining No No -Exudate Amt Medium None Present Small -Exudate Type Serosanguineous -Wound Margin Distinct, Distinct, Distinct, Outline Outline Outline Attached Attached Attached -Granulation Amt Medium (34-66%) Medium (34-66%) -Granulation Quality [place] -Slough/Fibrin Yes -Necrosis Amt Medium (34-66%) Medium (34-66%) -Necrotic Tissue Type Adherent Slough Adherent Slough -Structure Exposed N/A -Texture (Kaylah-wound Skin Appearance) Assessed, Callus,Scarring Scarring Localized Edema ,Scarring -Moisture (Kaylah-wound Skin Appearance) Assessed Assessed No Abnormality -Color (Kaylah-wound Skin Appearance) Assessed, Assessed No Abnormality Erythema -Temperature (Kaylah-wound Skin No Abnormality No Abnormality No Abnormality Appearance) (Pt Warm) (Pt Warm) (Pt Warm) -Tenderness on Palpation (Kaylah-wound No No No Skin Appearance) -Ulcer Cleansing Soap and Water Soap and Water Soap and Water -Foul Odor after Cleansing Yes, Due to No No Product Use -Anesthetic Used 5% Lidocaine 5% Lidocaine 4% Lidocaine Gel Gel Solution,5% Lidocaine Gel #1- L LATERAL FOOT -Combined with other wound No No -Current Size (cm) - Length 0.6 0.5 -Current Size (cm) - Width 0.5 0.5 -Current Size (cm) - Depth 0.1 0.2 -Total Square Cm 0.30 0.25 -Date of Last Picture (Recall this 07/03/21 07/10/21 field) -Photo Taken Yes Yes -Epithelialization None Present None Present -Tunneling No No -Undermining/Tunneling No No -Circular Undermining No No -Exudate Amt Medium Medium -Exudate Type Serosanguineous Serosanguineous -Wound Margin Distinct, Distinct, Outline Outline Attached Attached -Granulation Amt Large (67-100%) Large (67-100%) -Granulation Quality Red Red -Slough/Fibrin Yes Yes -Necrosis Amt Small (1-33%) Small (1-33%) -Necrotic Tissue Type Adherent Slough Adherent Slough -Texture (Kaylah-wound Skin Appearance) Assessed, Assessed, Localized Edema Scarring ,Scarring -Moisture (Kaylah-wound Skin Appearance) Assessed Assessed -Color (Kaylah-wound Skin Appearance) Assessed, Assessed Erythema -Temperature (Kaylah-wound Skin No Abnormality No Abnormality Appearance) (Pt Warm) (Pt Warm) -Tenderness on Palpation (Kaylah-wound No No Skin Appearance) -Ulcer Cleansing Soap and Water Soap and Water -Foul Odor after Cleansing No No -Anesthetic Used 5% Lidocaine 5% Lidocaine Gel Gel Lower Limb Edema Present Yes Yes Right Calf (cm) 40.4 Right Ankle (cm) 21 Left Calf (cm) 38.2 39.5 Left Ankle (cm) 21.5 21.6 - Nurse 2 - General Ulcer CM Notes Start: 07/03/21 09:06 Freq: Status: Active Protocol: Activity Type Activity Date Activity User E-Sign Co-Sign Detail Recorded Client Recorded Date Recorded By Document 07/03/21 09:45 [facility] [id number] 07/03/21 10:02 [facility] Document 07/18/21 10:14 [facility] [id number] 07/18/21 10:19 EMERSON 07/03/21 07/18/21 09:45 10:14 Wound Center Nurse 2 #2- L LATERAL PLANTAR -Time 09:45 10:14 -Correct Patient Yes Yes -Correct Side, Site, Position Yes Yes -Correct Procedure Yes Yes -Procedure Performed Yes Yes -Type of Procedure Debridement Debridement -Clinical Debridement Subcutaneous Subcutaneous -Tissue Removed Subcutaneous Dermis -Post Debridement (cm) - Length 0.4 0.1 -Post Debridement (cm) - Width 0.4 0.1 -Post Debridement (cm) - Depth 0.3 0.3 -Total Square (Post) (cm) 0.16 0.01 -Area of Debridement (cm) - Length 0.4 0.1 -Area of Debridement (cm) - Width 0.4 0.1 -Total Square (Area) (cm) 0.16 0.01 -Tunneling No No -Undermining/Tunneling No No -Circular Undermining No No -Wound/Ulcer Outcome Not Healed Not Healed -Ulcer Cleansing Wound Cleanser Rinsed/ Irrigated with Saline -Foul Odor after Cleansing No No -Bioengineered Tissue No No -Bleeding Controlled with Pressure Pressure -Offloading Yes Yes -Type of Offloading Surgical Shoe Total Contact Cast (TCC) - Left ($) -Treatment Response Procedure Procedure Tolerated Well Tolerated Well -Debridement - Subq, 1st 20sq cm No Yes #1- L LATERAL FOOT -Time 09:45 -Correct Patient Yes No -Correct Side, Site, Position Yes No -Correct Procedure Yes No -Procedure Performed Yes No -Type of Procedure Debridement -Clinical Debridement Subcutaneous -Tissue Removed Subcutaneous -Post Debridement (cm) - Length 0.6 0 -Post Debridement (cm) - Width 0.5 0 -Post Debridement (cm) - Depth 0.2 0 -Total Square (Post) (cm) 0.30 0 -Area of Debridement (cm) - Length 0.6 -Area of Debridement (cm) - Width 0.5 -Total Square (Area) (cm) 0.30 -Tunneling No -Undermining/Tunneling No -Circular Undermining No -Wound/Ulcer Outcome Not Healed Not Healed -Ulcer Cleansing Rinsed/ Irrigated with Saline -Foul Odor after Cleansing No -Bioengineered Tissue No -Bleeding Controlled with Pressure -Offloading Yes -Type of Offloading Surgical Shoe -Treatment Response Procedure Tolerated Well -Debridement - Subq, 1st 20sq cm Yes Pain Scale: 0-10 Numeric Is Patient Pain Free? Yes Yes WC - Nurse 3 - General Ulcer D/C NN Start: 07/03/21 09:06 Freq: Status: Active Protocol: Activity Type Activity Date Activity User E-Sign Co-Sign Detail Recorded Client Recorded Date Recorded By Document 07/03/21 09:52 MW [id number] 07/03/21 09:55 MW Document 07/10/21 09:36 MW [id number] 07/10/21 09:38 MW 07/03/21 07/10/21 09:52 09:36 Wound Care Nurse 3 #2- L LATERAL PLANTAR -Ulcer Cleansing Rinsed/ Not Cleansed Irrigated with Saline -Foul Odor after Cleansing No -Negative Pressure Wound Therapy N/A -Primary Dressing Applied Promogran Precious Matter -Other Dressing beteadine -Primary Dressing Covered/Secured with Dry Gauze & Dry Gauze Roll Gauze, Secured with Tape -Promogran Precious Matter 1 #1- L LATERAL FOOT -Ulcer Cleansing Rinsed/ Not Cleansed Irrigated with Saline -Foul Odor after Cleansing No No -Negative Pressure Wound Therapy N/A N/A -Other Dressing Betadine precious -Primary Dressing Covered/Secured with Dry Gauze & Dry Gauze Roll Gauze, Secured with Tape Left -Lotion applied to leg before No compression wrap -Size of Tubigrip Used Size D -Size D ($) 1 -Other TCC pre/ undercast applied Treatment Response Procedure Procedure Tolerated Well Tolerated Well Pain Scale: 0-10 Numeric Is Patient Pain Free? Yes Yes Teaching: Wound Center Dressing Your Wound -Person Taught Patient,Family Patient,Family -Teaching Method Demonstration Discussion -Response to teaching Verbalize Verbalize understanding understanding WC - Visit Discharge Discharge Condition Stable Stable Ambulatory Status Ambulatory, Ambulatory, Walker Walker Transportation Private Auto Private Auto Accompanied by Medication Reconcilliation completed & No No provided to patient/care provider Clinical Summary of Care Provided Yes Yes Assessment/Plan Assessment/Plan (1) Non-pressure chronic ulcer of other part of left foot with fat layer exposed: CODE(S): L97.522 - Non-pressure chronic ulcer of other part of left foot with fat layer exposed (2) Peripheral vascular disease, unspecified: CODE(S): I73.9 - Peripheral vascular disease, unspecified (3) Type 2 diabetes mellitus with diabetic neuropathy, unspecified: CODE(S): E11.40 - Type 2 diabetes mellitus with diabetic neuropathy, unspecified (4) Cellulitis: CODE(S): L03.90 - Cellulitis, unspecified PLAN: Patient examined evaluate off discussed patient in detail. Patient is awaiting vascular testing results. Wound cultures demonstrated staph epidermidis, this is normal skin gianfranco at this time no reason for any antibiotics. Patient has no evidence of leukocytosis, hemoglobin 15.5, hematocrit 45.6, platelets 242, prealbumin 2.2 Albumin 2.8 CRP 4.09 BUN 11, creatinine 0.94. Due to slightly decreased albumin levels I recommend supplementation with Glucerna. Wound (remaining plantar) was excisionally debrided this documented in the nursing notes. Wound dressed with Precious dry sterile dressing and a total contact cast. Verbal consent was obtained and this was applied according to standard protocol in a neutral position and well-padded manner. He tolerated this well. He is advised to keep this clean, dry, and intact. Total contact casting will allow weightbearing while offloading the wound site adequate padding was used to prevent any signs of irritation from the cast. Patient will continue to be seen on a weekly basis at this time I recommended that he does not have to fill his antibiotic prescription. He is demonstrating significant progress and we will continue current treatment unless there are any complications such as wound worsening or infection. Note: [employer] speech recognition pillowcase cleaner software was used to create portions of this document. Sound-alike and misspelled words, as well as other pillowcase cleaner errors may be contained in the documentation.
[2021-07-24 08:38] VITALS: BP 141/89; PULSE 93; RESP 16; TEMP 35.9; BMI 32.3
--- NOTE | 2021-07-24 08:54 | PCM.WC.PN ---
History of Present Illness Date of Service: 07/24/21 Chief Complaint: Diabetic foot ulcer, left foot History of Wound: This 55-year-old male presents to clinic for follow-up on a left foot ulceration x2. This is a work-related injury which patient had metal fragments within his shoe that caused some friction created ulcerations to his fifth metatarsal head which secondarily became infected and was treated for for MSSA for 2 weeks. The infection has since resolved. Patient denies any fever, chills, nausea, vomiting, chest pain, calf pain, shortness of breath today. Patient has been offloading site a total contact cast. Progress of Wound: Healed Objective Data Objective Data Vital Signs: Vital Signs Temp Pulse Resp BP 96.7 F L 93 16 141/89 H 07/24/21 08:38 07/24/21 08:38 07/24/21 08:38 07/24/21 08:38 Oxygen Delivery Method Room Air Weight: 102.058 kg Body Mass Index (BMI) 32.3 Lab / Micro Data Result Diagrams: 07/03/21 10:45 07/03/21 10:45 Micro: Microbiology 07/03/21 09:40 Wound Abcess - Left Foot Gram Stain - Final 07/03/21 09:40 Wound Abcess - Left Foot Wound Culture - Final Staphylococcus epidermidis 07/03/21 09:40 Wound Abcess - Left Foot Anaerobic Culture - Final No growth in 5 days. Physical Exam Narrative Patient alert and oriented to time. Patient ambulates unassisted in a surgical shoe with fifth metatarsal offloading pad. Vascular: Dorsalis pedis and posterior tibial pulses palpable 2 out of 4 to bilateral lower extremity capillary fill time brisk to digits 1 through 5 bilaterally. demonstrate some loss of digital hair growth. There is noted be some thinning of the skin with scattered hemosiderin deposits. There is +1 pitting edema to bilateral lower extremity. Neurologic: Light touch protective sensation absent to bilateral feet. Dermatologic: 2 focal ulcerations to the left fifth metatarsal head, both healed at this time. No sings of infection. Musculoskeletal: No gross deformity noted at this time. Muscular strength for the bilateral lower extremity compartments. No pain with calf squeeze bilaterally. Debridement Note Debridement Note Post-Debridement Measurements and Additional Note: Post-Debridement Measurements/Treatment WC - Nurse 1 - General Ulcer Assessment Start: 02/01/22 09:06 Freq: Status: Active Protocol: WC.LOWEXT Activity Type Activity Date Activity User E-Sign Co-Sign Detail Recorded Client Recorded Date Recorded By Document 07/03/21 09:06 [facility] [id number] 07/03/21 09:21 BM Document 07/10/21 08:56 BM [id number] 07/10/21 09:03 BMF Document 07/18/21 09:39 DL [id number] 07/18/21 09:58 DL Document 07/24/21 08:38 [facility] [id number] 07/24/21 08:42 BMF 07/03/21 07/10/21 07/18/21 09:06 08:56 09:39 WC - Today's Visit Information Type of service Initial Visit Follow-up Visit Follow-up Visit (Physician/AUTOMOTIVE PARTS SALESPERSON (Physician/AUTOMOTIVE PARTS SALESPERSON ) ) Arrival Mode Ambulatory, Ambulatory, Ambulatory, Walker Walker Walker Transfer Assistance None None None Accompanied by Patient Identification Verified (Name & Yes Yes Yes ) Patient Requires Transmission-Based No No Precautions Finger Stick Blood Sugar(mg/dl) (if didnt check indicated): Blood Sugar Stated by Patient Height and Weight Height 5 ft 10 in Weight 102.058 kg Weight in Pounds 225.0 lbs Weight Measurement Method Stated by Patient Body Mass Index (BMI) 32.3 32.3 32.3 BMI Classification Obese Obese Obese BSA - Magda 2.19 Vital Signs Temperature (97.8 F-99.1 F) 98.6 F 96.6 F L 98.2 F Temperature Source Temporal Temporal Temporal Pulse Rate (60-100) 93 75 91 Pulse Location Monitor Monitor Monitor Respiratory Rate (12-18) 16 16 20 H Respiratory rate source Observation Observation Observation Oxygen Delivery Method Room Air Room Air Blood Pressure (90/60-120/80) 154/86 H 159/92 H 165/92 H Blood Pressure Mean (mm Hg) 108 114 116 Source Monitor Monitor Monitor Position Sitting Sitting Blood Pressure Location Right Arm Left Arm Have you changed medications since your No No last visit? Any new allergies or adverse reactions No No Had a fall/change in ADL's that may No No increase risk of falls Signs or symptoms of abuse and/or No No neglect since last visit Have you been in the hospital since your No No last visit? Has dressing in place as prescribed Yes Yes Has compression in place as prescribed Yes N/A Has offloadiing in place as prescribed Yes Yes Experienced any changes in pain level or No No management History Since Last Visit- (Skip if this is Patient's initial visit) Left Footwear Surgical Shoe Surgical Shoe Total Contact with pressure with pressure Cast relief insole relief insole Right Footwear Regular Shoe Regular Shoe Pain Scale: 0-10 Numeric Is Patient Pain Free? Yes Yes Yes Lower Extremity Assessment/ Foot Assessment/ Toe Nail Assessment Right -Posterior Tibial Palpable Yes -Posterior Tibial Doppler Multiphasic -Dorsalis Pedis Palpable Yes -Dorsalis Pedis Doppler Multiphasic -Extremity Color Hyperpigmented -Hair Growth on Legs Yes -Hair Growth on Toes No -Temperature of Extremity Warm -Other Deformity No -Prior Foot Ulcer No -Charcot Joint No -Prior Amputation No -Thick No -Discolored No -Deformed No -Improper Length & Hygeine No Left -Posterior Tibial Palpable Yes -Posterior Tibial Doppler Multiphasic -Dorsalis Pedis Palpable Yes -Dorsalis Pedis Doppler Multiphasic -Extremity Color Hyperpigmented -Hair Growth on Legs Yes -Hair Growth on Toes No -Temperature of Extremity Warm -Thick No -Discolored No -Deformed No -Improper Length & Hygeine No Neuropathy Assessment Feet - Top Side and Bottom <Entered> (a) Communication Assessment Preferred language [facility] Lead Required No Able to Read Yes Able to Write Yes Communication Tools None Right Hearing Abillity Normal Left Hearing Abillity Normal Visual Assistive Devices Glasses Teaching Assessment Preferences Verbal,Written, Audio/Visual, Demonstration Barriers to Learning None Readiness To Learn Excellent Willingness to Engage in Self Management High Activies Readiness to Engage in Self Management High Activities Anxiety Level Calm Cooperation Cooperative Perception Coherent Interest in Health Problem Asks Questions Education Importance Acknowledges Need Does Patient Smoke tobacco or other No substances Smoking Status Never smoker Is Patient Diabetic Yes Functional Assessment Recent Decline in Ability to Perform Ambulation, Transferring Culture/Anabaptist/Stringer Machine Tender Cultural/Anabaptist Needs that may affect No Treatment Plan Teaching: Wound Center *Welcome to the Wound Center -Person Taught Patient, Significant Other -Teaching Method Discussion -Response to teaching Verbalize understanding Welcome to the Wound Care Center [place] 07/24/21 08:38 WC - Today's Visit Information Type of service Follow-up Visit (Physician/AUTOMOTIVE PARTS SALESPERSON ) Arrival Mode Ambulatory Transfer Assistance None Accompanied by Patient Identification Verified (Name & Yes ) Patient Requires Transmission-Based No Precautions Finger Stick Blood Sugar(mg/dl) (if indicated): Blood Sugar Height and Weight Height Weight Weight in Pounds Weight Measurement Method Body Mass Index (BMI) 32.3 BMI Classification Obese BSA - Magda Vital Signs Temperature (97.8 F-99.1 F) 96.7 F L Temperature Source Temporal Pulse Rate (60-100) 93 Pulse Location Monitor Respiratory Rate (12-18) 16 Respiratory rate source Observation Oxygen Delivery Method Room Air Blood Pressure (90/60-120/80) 141/89 H Blood Pressure Mean (mm Hg) 106 Source Monitor Position Blood Pressure Location Have you changed medications since your No last visit? Any new allergies or adverse reactions No Had a fall/change in ADL's that may No increase risk of falls Signs or symptoms of abuse and/or No neglect since last visit Have you been in the hospital since your No last visit? Has dressing in place as prescribed Yes Has compression in place as prescribed N/A Has offloadiing in place as prescribed Yes Experienced any changes in pain level or No management History Since Last Visit- (Skip if this is Patient's initial visit) Left Footwear Total Contact Cast Right Footwear Regular Shoe Pain Scale: 0-10 Numeric Is Patient Pain Free? Yes Lower Extremity Assessment/ Foot Assessment/ Toe Nail Assessment Right -Posterior Tibial Palpable -Posterior Tibial Doppler -Dorsalis Pedis Palpable -Dorsalis Pedis Doppler -Extremity Color -Hair Growth on Legs -Hair Growth on Toes -Temperature of Extremity -Other Deformity -Prior Foot Ulcer -Charcot Joint -Prior Amputation -Thick -Discolored -Deformed -Improper Length & Hygeine Left -Posterior Tibial Palpable -Posterior Tibial Doppler -Dorsalis Pedis Palpable -Dorsalis Pedis Doppler -Extremity Color -Hair Growth on Legs -Hair Growth on Toes -Temperature of Extremity -Thick -Discolored -Deformed -Improper Length & Hygeine Neuropathy Assessment Feet - Top Side and Bottom 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 Able to Read Able to Write Communication Tools Right Hearing Abillity Left Hearing Abillity Visual Assistive Devices Teaching Assessment Preferences Barriers to Learning Readiness To Learn Willingness to Engage in Self Management Activies Readiness to Engage in Self Management Activities Anxiety Level Cooperation Perception Interest in Health Problem Education Importance Does Patient Smoke tobacco or other substances Smoking Status Is Patient Diabetic Functional Assessment Recent Decline in Ability to Perform Culture/Anabaptist/Stringer Machine Tender Cultural/Anabaptist Needs that may affect Treatment Plan Teaching: Wound Center *Welcome to the Wound Center -Person Taught -Teaching Method -Response to teaching Welcome to the Wound Care Center (a) 1 - + WC - Nurse 1 - General Ulcer Measurement Start: 07/03/21 09:06 Freq: Status: Active Protocol: Activity Type Activity Date Activity User E-Sign Co-Sign Detail Recorded Client Recorded Date Recorded By Document 07/03/21 09:06 [facility] [id number] 07/03/21 09:21 BMF Document 07/10/21 08:56 BMF [id number] 07/10/21 09:03 BMF Document 07/18/21 09:39 DL [id number] 07/18/21 09:58 DL Document 07/24/21 08:38 BM [id number] 07/24/21 08:42 BMF 07/03/21 07/10/21 07/18/21 09:06 08:56 09:39 Wound Center Nurse 1 #2- L LATERAL PLANTAR -Combined with other wound No No -Current Size (cm) - Length 0.4 0.1 0.9 -Current Size (cm) - Width 0.3 0.1 2.2 -Current Size (cm) - Depth 0.3 0.1 0.1 -Total Square Cm 0.12 0.01 1.98 -Date of Last Picture (Recall this 07/03/21 07/10/21 field) -Photo Taken Yes Yes No -Epithelialization None Present Large 67-100% -Tunneling No No -Undermining/Tunneling Yes No -Undermining/Tunneling Starts (O'clock 11 ) -Undermining/Tunneling Ends (O'clock) 3 -Maximum Distance (cm) 0.7 -Circular Undermining No No -Exudate Amt Medium None Present Small -Exudate Type Serosanguineous -Wound Margin Distinct, Distinct, Distinct, Outline Outline Outline Attached Attached Attached -Granulation Amt Medium (34-66%) Medium (34-66%) -Granulation Quality Red [facility] -Slough/Fibrin Yes -Necrosis Amt Medium (34-66%) Medium (34-66%) -Necrotic Tissue Type Adherent Slough Adherent Slough -Structure Exposed N/A -Texture (Kaylah-wound Skin Appearance) Assessed, Callus,Scarring Scarring Localized Edema ,Scarring -Moisture (Kaylah-wound Skin Appearance) Assessed Assessed No Abnormality -Color (Kaylah-wound Skin Appearance) Assessed, Assessed No Abnormality Erythema -Temperature (Kaylah-wound Skin No Abnormality No Abnormality No Abnormality Appearance) (Pt Warm) (Pt Warm) (Pt Warm) -Tenderness on Palpation (Kaylah-wound No No No Skin Appearance) -Ulcer Cleansing Soap and Water Soap and Water Soap and Water -Foul Odor after Cleansing Yes, Due to No No Product Use -Anesthetic Used 5% Lidocaine 5% Lidocaine 4% Lidocaine Gel Gel Solution,5% Lidocaine Gel #1- L LATERAL FOOT -Combined with other wound No No -Current Size (cm) - Length 0.6 0.5 -Current Size (cm) - Width 0.5 0.5 -Current Size (cm) - Depth 0.1 0.2 -Total Square Cm 0.30 0.25 -Date of Last Picture (Recall this 07/03/21 07/10/21 field) -Photo Taken Yes Yes -Epithelialization None Present None Present -Tunneling No No -Undermining/Tunneling No No -Circular Undermining No No -Exudate Amt Medium Medium -Exudate Type Serosanguineous Serosanguineous -Wound Margin Distinct, Distinct, Outline Outline Attached Attached -Granulation Amt Large (67-100%) Large (67-100%) -Granulation Quality Red Red -Slough/Fibrin Yes Yes -Necrosis Amt Small (1-33%) Small (1-33%) -Necrotic Tissue Type Adherent Slough Adherent Slough -Texture (Kaylah-wound Skin Appearance) Assessed, Assessed, Localized Edema Scarring ,Scarring -Moisture (Kaylah-wound Skin Appearance) Assessed Assessed -Color (Kaylah-wound Skin Appearance) Assessed, Assessed Erythema -Temperature (Kayl[place]-wound Skin No Abnormality No Abnormality Appearance) (Pt Warm) (Pt Warm) -Tenderness on Palpation (Kaylah-wound No No Skin Appearance) -Ulcer Cleansing Soap and Water Soap and Water -Foul Odor after Cleansing No No -Anesthetic Used 5% Lidocaine 5% Lidocaine Gel Gel Lower Limb Edema Present Yes Yes Right Calf (cm) 40.4 Right Ankle (cm) 21 Left Calf (cm) 38.2 39.5 Left Ankle (cm) 21.5 21.6 07/24/21 08:38 Wound Center Nurse 1 #2- L LATERAL PLANTAR -Combined with other wound No -Current Size (cm) - Length 0.1 -Current Size (cm) - Width 0.1 -Current Size (cm) - Depth 0.1 -Total Square Cm 0.01 -Date of Last Picture (Recall this 07/24/21 field) -Photo Taken Yes -Epithelialization Large 67-100% -Tunneling No -Undermining/Tunneling No -Undermining/Tunneling Starts (O'clock ) -Undermining/Tunneling Ends (O'clock) -Maximum Distance (cm) -Circular Undermining No -Exudate Amt Small -Exudate Type Serosanguineous -Wound Margin Distinct, Outline Attached -Granulation Amt None Present (0 %) -Granulation Quality -Slough/Fibrin Yes -Necrosis Amt Small (1-33%) -Necrotic Tissue Type Eschar -Structure Exposed -Texture (Kaylah-wound Skin Appearance) Assessed, Scarring -Moisture (Kaylah-wound Skin Appearance) Assessed,Dry/ Scaly -Color (Kaylah-wound Skin Appearance) Assessed -Temperature (Kaylah-wound Skin No Abnormality Appearance) (Pt Warm) -Tenderness on Palpation (Kaylah-wound No Skin Appearance) -Ulcer Cleansing Soap and Water -Foul Odor after Cleansing No -Anesthetic Used 4% Lidocaine Solution #1- L LATERAL FOOT -Combined with other wound -Current Size (cm) - Length -Current Size (cm) - Width -Current Size (cm) - Depth -Total Square Cm -Date of Last Picture (Recall this field) -Photo Taken -Epithelialization -Tunneling -Undermining/Tunneling -Circular Undermining -Exudate Amt -Exudate Type -Wound Margin -Granulation Amt -Granulation Quality -Slough/Fibrin -Necrosis Amt -Necrotic Tissue Type -Texture (Kaylah-wound Skin Appearance) -Moisture (Kaylah-wound Skin Appearance) -Color (Kaylah-wound Skin Appearance) -Temperature (Kaylah-wound Skin Appearance) -Tenderness on Palpation (Kaylah-wound Skin Appearance) -Ulcer Cleansing -Foul Odor after Cleansing -Anesthetic Used Lower Limb Edema Present Right Calf (cm) Right Ankle (cm) Left Calf (cm) 39.2 Left Ankle (cm) 22 WC - Nurse 2 - General Ulcer CM Notes Start: 07/03/21 09:06 Freq: Status: Active Protocol: Activity Type Activity Date Activity User E-Sign Co-Sign Detail Recorded Client Recorded Date Recorded By Document 07/03/21 09:45 [id number] 07/03/21 10:02 Document 07/18/21 10:14 [id number] 07/18/21 10:19 Document 07/24/21 08:49 [id number] 07/24/21 08:51 07/03/21 07/18/21 07/24/21 09:45 10:14 08:49 Wound Center Nurse 2 #2- L LATERAL PLANTAR -Time 09:45 10:14 08:49 -Correct Patient Yes Yes No -Correct Side, Site, Position Yes Yes No -Correct Procedure Yes Yes No -Procedure Performed Yes Yes No -Type of Procedure Debridement Debridement -Clinical Debridement Subcutaneous Subcutaneous -Tissue Removed Subcutaneous Dermis -Post Debridement (cm) - Length 0.4 0.1 0 -Post Debridement (cm) - Width 0.4 0.1 0 -Post Debridement (cm) - Depth 0.3 0.3 0 -Total Square (Post) (cm) 0.16 0.01 0 -Area of Debridement (cm) - Length 0.4 0.1 0 -Area of Debridement (cm) - Width 0.4 0.1 0 -Total Square (Area) (cm) 0.16 0.01 0 -Tunneling No No No -Undermining/Tunneling No No No -Circular Undermining No No No -Wound/Ulcer Outcome Not Healed Not Healed Healed- Epithelialized -Ulcer Cleansing Wound Cleanser Rinsed/ Irrigated with Saline -Foul Odor after Cleansing No No -Bioengineered Tissue No No -Bleeding Controlled with Pressure Pressure -Offloading Yes Yes -Type of Offloading Surgical Shoe Total Contact Cast (TCC) - Left ($) -Treatment Response Procedure Procedure Tolerated Well Tolerated Well -Debridement - Subq, 1st 20sq cm No Yes #1- L LATERAL FOOT -Time 09:45 -Correct Patient Yes No -Correct Side, Site, Position Yes No -Correct Procedure Yes No -Procedure Performed Yes No -Type of Procedure Debridement -Clinical Debridement Subcutaneous -Tissue Removed Subcutaneous -Post Debridement (cm) - Length 0.6 0 -Post Debridement (cm) - Width 0.5 0 -Post Debridement (cm) - Depth 0.2 0 -Total Square (Post) (cm) 0.30 0 -Area of Debridement (cm) - Length 0.6 -Area of Debridement (cm) - Width 0.5 -Total Square (Area) (cm) 0.30 -Tunneling No -Undermining/Tunneling No -Circular Undermining No -Wound/Ulcer Outcome Not Healed Not Healed -Ulcer Cleansing Rinsed/ Irrigated with Saline -Foul Odor after Cleansing No -Bioengineered Tissue No -Bleeding Controlled with Pressure -Offloading Yes -Type of Offloading Surgical Shoe -Treatment Response Procedure Tolerated Well -Debridement - Subq, 1st 20sq cm Yes Pain Scale: 0-10 Numeric Is Patient Pain Free? Yes Yes Yes WC - Nurse 3 - General Ulcer D/C NN Start: 07/03/21 09:06 Freq: Status: Active Protocol: Activity Type Activity Date Activity User E-Sign Co-Sign Detail Recorded Client Recorded Date Recorded By Document 07/03/21 09:52 MW [id number] 07/03/21 09:55 MW Document 07/10/21 09:36 MW [id number] 07/10/21 09:38 MW 07/03/21 07/10/21 09:52 09:36 Wound Care Nurse 3 #2- L LATERAL PLANTAR -Ulcer Cleansing Rinsed/ Not Cleansed Irrigated with Saline -Foul Odor after Cleansing No -Negative Pressure Wound Therapy N/A -Primary Dressing Applied Promogran Shahrzad Matter -Other Dressing beteadine -Primary Dressing Covered/Secured with Dry Gauze & Dry Gauze Roll Gauze, Secured with Tape -Promogran Shahrzad Matter 1 #1- L LATERAL FOOT -Ulcer Cleansing Rinsed/ Not Cleansed Irrigated with Saline -Foul Odor after Cleansing No No -Negative Pressure Wound Therapy N/A N/A -Other Dressing Betadine shahrzad -Primary Dressing Covered/Secured with Dry Gauze & Dry Gauze Roll Gauze, Secured with Tape Left -Lotion applied to leg before No compression wrap -Size of Tubigrip Used Size D -Size D ($) 1 -Other TCC pre/ undercast applied Treatment Response Procedure Procedure Tolerated Well Tolerated Well Pain Scale: 0-10 Numeric Is Patient Pain Free? Yes Yes Teaching: Wound Center Dressing Your Wound -Person Taught Patient,Family Patient,Family -Teaching Method Demonstration Discussion -Response to teaching Verbalize Verbalize understanding understanding WC - Visit Discharge Discharge Condition Stable Stable Ambulatory Status Ambulatory, Ambulatory, Walker Walker Transportation Private Auto Private Auto Accompanied by Medication Reconcilliation completed & No No provided to patient/care provider Clinical Summary of Care Provided Yes Yes Assessment/Plan Assessment/Plan (1) Non-pressure chronic ulcer of other part of left foot with fat layer exposed: CODE(S): L97.522 - Non-pressure chronic ulcer of other part of left foot with fat layer exposed (2) Peripheral vascular disease, unspecified: CODE(S): I73.9 - Peripheral vascular disease, unspecified (3) Type 2 diabetes mellitus with diabetic neuropathy, unspecified: CODE(S): E11.40 - Type 2 diabetes mellitus with diabetic neuropathy, unspecified (4) Cellulitis: CODE(S): L03.90 - Cellulitis, unspecified PLAN: Patient examined evaluate off discussed patient in detail. Patient is awaiting vascular testing results. Continue Glucerna supplementation. Left foot wound is healed at this time. Due to skin fragility recommend 1 more total contact cast for additional week. This is to protect the skin and allow her to get to the 80% max strength as this occurs in the first 2 weeks of wound healing. The next 20% will be gained over the next 2 years. Total contact cast applied to the left lower extremity. He will likely remain off work for an additional week, then he will return to work in a limited fashion to ensure no recurrence. Upon 2 weeks if there are no issues he will return to work at a full capacity. He will follow up in 1 week for total contact cast removal, then he will follow-up in our office for fitting of diabetic shoes.
== END 2021-07-30 23:59 | disposition home or self-care (01) ==
LOC: WC 08:30
PROVIDERS: PCP Family Medicine; Referring Provider Podiatrist; Visit Provider Podiatrist
DX: E11.621 Type 2 diabetes mellitus with foot ulcer (principal); E11.51 Type 2 diabetes mellitus with diabetic peripheral angiopathy without gangrene; L97.522 Non-pressure chronic ulcer of other part of left foot with fat layer exposed; E11.40 Type 2 diabetes mellitus with diabetic neuropathy, unspecified; Z79.84 Long term (current) use of oral hypoglycemic drugs; Z85.038 Personal history of other malignant neoplasm of large intestine; L03.90 Cellulitis, unspecified
CPT/HCPCS: 11042; 29445; 36415; 73630; 80048; 83036; 84134; 85027; 85652; 86140; 87070; 87075; 87077; 87186; 87205; 87640; 99213; G0463

== ENCOUNTER 2021-07-30 21:02 | Emergency (ER) | payer OTHER, BC, SELFPAY ==
[2021-07-30 21:03] VITALS: BP 133/99; PULSE 100; RESP 18; TEMP 36; O2SAT 98; BMI 33.0
--- NOTE | 2021-07-30 23:49 | ED.VIS.LOWEX ---
HPI History of Present Illness HPI Narrative: Cast got wet and needs to be removed. Informant: patient and spouse/S.O. Narrative Narrative: 55-year-old male history of diabetes. Colorectal cancer and underwent chemotherapy. Patient had a foreign body in his foot around May. Became infected. He followed up with podiatry who did surgery and debridement. He has been in a full contact cast so he can walk on it. It was supposed to be removed tomorrow. Tonight he accidentally got the cast very wet while bathing. They did not want his foot to sit in a wet cast all night so they came in to have it removed. He denies any complaints. 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 Diabetes GERD (gastroesophageal reflux disease) Kidney stones Vertigo Home Medications metformin 1,000 mg PO BID 02/09/19 [History Last Taken 04/28/19 12:00] glimepiride 2 mg PO DAILY 08/09/19 [History Last Taken Unknown] Allergy/AdvReac Type Severity Reaction Status Date / Time No Known Allergies Allergy Verified 07/30/21 21:05 Family History Mother Diabetes CVA (cerebral vascular accident) Father Diabetes Hypertension Surgical History H/O umbilical hernia repair History of appendectomy History of colonoscopy S/P colectomy s/p insertion vascular port (~07/25/17) Social History Smoking Status: Never smoker alcohol intake: never substance use type: does not use ROS ROS ED ROS Narrative Denies. Review of Systems ROS Unobtainable: Denies due to encephalopathy Constitutional Constitutional ED: Denies fever(s) Eyes Eyes: Denies change in vision ENT ENT ED: Denies ear pain Cardiovascular Cardiovascular: Denies chest pain Respiratory/Chest Respiratory/Chest: Denies dyspnea Gastrointestinal Gastrointestinal: Denies abdominal pain, nausea or vomiting Genitourinary Genitourinary ED: Denies dysuria Musculoskeletal Musculoskeletal: Denies myalgias Integumentary Denies rash Neurologic Neurologic: Denies headache(s) Psychiatric Psychiatric: Denies depression Endocrine Endocrinology: Denies polyuria Hematologic/Lymphatic Hematologic/Lymphatic: Denies easy bruising Allergic/Immunologic Allergic/Immunologic ED: Denies urticaria EXAM Physical Exam Narrative Exam Narrative: 55-year-old no acute distress. Vital signs stable afebrile. Exam unremarkable. Left lower leg has a walking cast. Const Vital Signs: 07/30/21 21:03 Temperature 96.8 F L Temperature Source Temporal Pulse Rate 100 Respiratory Rate 18 Blood Pressure 133/99 H Blood Pressure Mean 110 Pulse Ox 98 Oxygen Delivery Method Room Air Positive well nourished and well developed; Negative for cachectic or contractures General Appearance ED: well developed; Negative for cachectic or contractures Nutritional Appearance: Negative for cachectic HEENT Reports moist mucous membranes normocephalic; Negative for atraumatic, trauma or tenderness Eyes PERRL Neck full ROM and supple Chest Wall inspection of chest normal and palpation of chest normal Resp normal respiratory effort, no retractions and clear to auscultation bilaterally Auscultation: Negative for rales, rhonchi or wheezes Cardio regular rate, regular rhythm, S1 normal heart sound, S2 normal heart sound and no murmurs GI non-tender, non-distended and no masses Auscultation: normoactive bowel sounds Palpation: soft; Negative for tender or guarding Extremity normal to inspection Extremity Narrative: Cast was removed from his left lower extremity. There is a wound on the bottom of his foot. Is healing nicely. There is no pus. There is no cellulitis. There is no streaks. He has chronic neuropathy in his foot decreased sensation. He is able to wiggle his toes. He is able to dorsi and plantar flexion. The cast was removed because it was very wet. Neuro oriented x3 and moves all extremities Sensorium / Orientation: alert, oriented to person, oriented to place and oriented to time; Negative for confused or lethargic Motor Exam: strength 5/5 throughout Psych mental status grossly normal Skin No no wounds Skin Narrative: Healing wound bottom of left foot. Lesions: no lesions Rashes: no rashes MDM MDM MDM Narrative Medical decision making narrative: 55-year-old male with a history of diabetic foot infection from a foreign body in his left foot. He has had this debrided gone through wound care. His cast was post to be taken off tomorrow and he got it soaked tonight while bathing and will be removed. Clinically the foot looks well he will be discharged to home. 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 Disposition Disposition: Home, Self Care Discharge Date/Time: 07/30/21 23:57
[2021-07-30 23:56] VITALS: BP 132/82; PULSE 87; RESP 16; O2SAT 98
== END 2021-07-30 23:57 | disposition home or self-care (01) ==
PROVIDERS: Emergency Provider Emergency Medicine; PCP Family Medicine; Visit Provider Emergency Medicine
DX: Z46.4 Encounter for fitting and adjustment of orthodontic device (principal); C19 Malignant neoplasm of rectosigmoid junction; E11.628 Type 2 diabetes mellitus with other skin complications; Z92.21 Personal history of antineoplastic chemotherapy; L08.9 Local infection of the skin and subcutaneous tissue, unspecified; K21.9 Gastro-esophageal reflux disease without esophagitis; Z87.442 Personal history of urinary calculi
CPT/HCPCS: 99282

== ENCOUNTER 2021-07-31 08:53 | Outpatient (RCR) | payer OTHER, SELFPAY ==
[2021-07-31 00:11] VITALS: BP 141/89; PULSE 93; RESP 16; TEMP 35.9; BMI 32.3
[2021-07-31 08:22] VITALS: BP 152/91; PULSE 87; RESP 16; TEMP 35.7; BMI 32.3
--- NOTE | 2021-07-31 09:00 | PN.PCM_ITS ---
History of Present Illness Date of Service: 07/31/21 Chief Complaint: Diabetic foot ulcer, left foot History of Wound: This 55-year-old male presents to clinic for follow-up on a left foot ulceration x2. This is a work-related injury which patient had metal fragments within his shoe that caused some friction created ulcerations to his fifth metatarsal head which secondarily became infected and was treated for for MSSA for 2 weeks. The infection has since resolved. Patient denies any fever, chills, nausea, vomiting, chest pain, calf pain, shortness of breath today. Patient has been offloading site a total contact cast. Objective Data Objective Data Vital Signs: Vital Signs Temp Pulse Resp BP 96.2 F L 87 16 152/91 H 07/31/21 08:22 07/31/21 08:22 07/31/21 08:22 07/31/21 08:22 Oxygen Delivery Method Room Air Weight: 102.058 kg Body Mass Index (BMI) 32.3 Physical Exam Narrative Patient alert and oriented to time. Patient ambulates unassisted in a surgical shoe with fifth metatarsal offloading pad. Vascular: Dorsalis pedis and posterior tibial pulses palpable 2 out of 4 to bilateral lower extremity capillary fill time brisk to digits 1 through 5 bilaterally. demonstrate some loss of digital hair growth. There is noted be some thinning of the skin with scattered hemosiderin deposits. There is +1 pitting edema to bilateral lower extremity. Neurologic: Light touch protective sensation absent to bilateral feet. Dermatologic: 2 focal ulcerations to the left fifth metatarsal head, both healed at this time. No sings of infection. Musculoskeletal: No gross deformity noted at this time. Muscular strength for the bilateral lower extremity compartments. No pain with calf squeeze bilaterally. Debridement Note Debridement Note Post-Debridement Measurements and Additional Note: Post-Debridement Measurements/Treatment - Nurse 1 - General Ulcer Assessment Start: 07/31/21 08:22 Freq: Status: Active Protocol: PADILLA Activity Type Activity Date Activity User E-Sign Co-Sign Detail Recorded Client Recorded Date Recorded By Document 07/31/21 08:22 [facility] [id number] 07/31/21 08:28 [facility] 07/31/21 08:22 - Today's Visit Information Type of service Follow-up Visit (Physician/DIRECTOR OF ANALYTICAL DEVELOPMENT ) Arrival Mode Ambulatory, Walker Transfer Assistance None Patient Identification Verified (Name & Yes ) Patient Requires Transmission-Based No Precautions Height and Weight Weight Measurement Method Estimated by Patient Body Mass Index (BMI) 32.3 BMI Classification Obese Vital Signs Temperature (97.8 F-99.1 F) 96.2 F L Temperature Source Temporal Pulse Rate (60-100) 87 Pulse Location Monitor Respiratory Rate (12-18) 16 Respiratory rate source Observation Oxygen Delivery Method Room Air Blood Pressure (90/60-120/80) 152/91 H Blood Pressure Mean (mm Hg) 111 Source Monitor Position Sitting Blood Pressure Location Right Arm History Since Last Visit- (Skip if this is Patient's initial visit) Have you changed medications since your No last visit? Any new allergies or adverse reactions No Had a fall/change in ADL's that may No increase risk of falls Signs or symptoms of abuse and/or No neglect since last visit Have you been in the hospital since your No last visit? Has dressing in place as prescribed No Has compression in place as prescribed N/A Has offloadiing in place as prescribed No Experienced any changes in pain level or No management Left Footwear Surgical Shoe with pressure relief insole Right Footwear Regular Shoe Pain Scale: 0-10 Numeric Is Patient Pain Free? Yes WC - Nurse 1 - General Ulcer Measurement Start: 07/31/21 08:22 Freq: Status: Active Protocol: Activity Type Activity Date Activity User E-Sign Co-Sign Detail Recorded Client Recorded Date Recorded By Document 07/31/21 08:22 [facility] [id number] 07/31/21 08:28 [facility] 07/31/21 08:22 Wound Center Nurse 1 #2- L LATERAL PLANTAR -Combined with other wound No -Current Size (cm) - Length 0 -Current Size (cm) - Width 0 -Current Size (cm) - Depth 0 -Total Square Cm 0 -Epithelialization Large 67-100% -Texture (Kaylah-wound Skin Appearance) Assessed -Moisture (Kaylah-wound Skin Appearance) Assessed,Dry/ Scaly -Color (Kaylah-wound Skin Appearance) Assessed -Temperature (Kaylah-wound Skin No Abnormality Appearance) (Pt Warm) -Tenderness on Palpation (Kaylah-wound No Skin Appearance) -Ulcer Cleansing Rinsed/ Irrigated with Saline -Foul Odor after Cleansing No WC - Nurse 2 - General Ulcer CM Notes Start: 07/31/21 08:22 Freq: Status: Active Protocol: Activity Type Activity Date Activity User E-Sign Co-Sign Detail Recorded Client Recorded Date Recorded By Document 07/31/21 08:46 [id number] 07/31/21 08:46 07/31/21 08:46 Wound Center Nurse 2 -Correct Patient No -Correct Side, Site, Position No -Correct Procedure No -Procedure Performed No -Post Debridement (cm) - Length 0 -Post Debridement (cm) - Width 0 -Post Debridement (cm) - Depth 0 -Total Square (Post) (cm) 0 -Area of Debridement (cm) - Length 0 -Area of Debridement (cm) - Width 0 -Total Square (Area) (cm) 0 -Wound/Ulcer Outcome Healed- Epithelialized Pain Scale: 0-10 Numeric Is Patient Pain Free? Yes - Nurse 3 - General Ulcer D/C NN Start: 07/31/21 08:22 Freq: Status: Active Protocol: Activity Type Activity Date Activity User E-Sign Co-Sign Detail Recorded Client Recorded Date Recorded By Document 07/31/21 08:46 [id number] 07/31/21 08:46 07/31/21 08:46 Is Patient Pain Free? 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 Patient's wounds completely healed at this time. Will discontinue total contact casting. Patient will be seen as an outpatient at the [facility] [place], he will be fitted for custom diabetic shoes at that time. Patient will gradually transition into normal shoe gear, it will take some time for his lower extremity musculature to adjust to the normal stresses of walking due to this I recommend patient being off work for the remainder of the week, then returning to work at a 50% capacity for 2 weeks until he ultimately transitions into 100% capacity on 20 of August. Patient will continue daily foot checks, tight blood glucose regulation, nutritional supplementation and will notify us of any changes concerning for new wound formation or infection. Patient will be followed closely to ensure no reulceration. (2) Peripheral vascular disease, unspecified: CODE(S): I73.9 - Peripheral vascular disease, unspecified
== END 2021-08-01 14:01 | disposition home or self-care (01) ==
LOC: CVS 08:53
PROVIDERS: PCP Family Medicine; Referring Provider Podiatrist; Visit Provider Podiatrist
DX: E11.621 Type 2 diabetes mellitus with foot ulcer (principal); L97.519 Non-pressure chronic ulcer of other part of right foot with unspecified severity; L97.529 Non-pressure chronic ulcer of other part of left foot with unspecified severity
CPT/HCPCS: 99213; G0463

== ENCOUNTER 2021-08-06 14:28 | Outpatient (CLI) | payer BC, SELFPAY ==
--- NOTE | 2021-08-06 14:39 | CT_ITS ---
STUDY: CT Abdomen And Pelvis W/ Contrast Injection 08/06/2021 3:52 PM REASON FOR EXAM: Male, 55 years old. ABDOMINAL PAIN MONITORING COLON CANCER OLON CA-CHEMO, SURG-UMBILICAL HERNIA REPAIR,APPENDECTOMY/COLON RESECTION,URETERAL STENT, DB TECHNIQUE: Transaxial images were obtained with oral contrast, and with Oral and IV Readi-CAT 100mL Isovue-300 intravenous contrast. Individualized dose optimization techniques were used for this CT. COMPARISON: Aug 03 2020 4:41pm FINDINGS: The visualized lung bases are unremarkable. The visualized portions of the heart are within normal limits. Normal liver. Normal gallbladder and extrahepatic biliary system. Normal spleen. Normal pancreas. Normal bilateral adrenal glands. No acute findings of the right kidney. No acute findings of the left kidney. Normal visualized stomach. Normal small intestine. Stool throughout the colon. There are surgical clips in the region of the appendix consistent with a prior appendectomy. There are no acute findings of the abdominal aorta. Normal inferior vena cava. Subcentimeter mesenteric lymph nodes. Nonspecific mesenteric stranding. Differential includes mesenteric panniculitis, hypo-albuminemia, sequela of superior mesentery vein thrombosis, mesenteric edema, lymphedema, inflammation, and trauma. Rectosigmoid anastomosis. Normal urinary bladder. Normal visualized prostate gland. There is an umbilical hernia containing fat. There is endplate spondylosis of the vertebral body. IMPRESSION: (NOT LISTED IN ORDER OF SIGNIFICANCE) Nonspecific mesenteric stranding. Differential includes mesenteric panniculitis, hypo-albuminemia, sequela of superior mesentery vein thrombosis, mesenteric edema, lymphedema, inflammation, and trauma. No evidence for local recurrence or metastatic disease to the abdomen or pelvis. Other findings as above. Electronically Signed: Juan Esteban MD at 15:55 EST , CT/Abdomen/Pelvis WITH Contrast
[2021-08-06 14:51] LABS: EGFR FINGERSTICK > 60.0000 mL/min (>60)
== END 2021-08-06 23:59 | disposition home or self-care (01) ==
LOC: CT 14:35
PROVIDERS: PCP Family Medicine; Referring Provider Internal Medicine Medical Oncology; Visit Provider Internal Medicine Medical Oncology
DX: C18.7 Malignant neoplasm of sigmoid colon (principal)
CPT/HCPCS: 36415; 74177; 80053; 82378; 83615; 85025; Q9967; A4216

== ENCOUNTER → 2022-08-07 | Outpatient (CLI) | payer BC, SELFPAY ==
--- NOTE | 2022-08-07 17:54 | CT_ITS ---
EXAM: CT ABDOMEN AND PELVIS WITH INTRAVENOUS CONTRAST CLINICAL INDICATION: MONITOR COLON CANCER TECHNIQUE: Helically acquired images were obtained of the abdomen and pelvis with intravenous contrast. CTDIvol = ( 16.78 ) mGy, DLP = ( 1363.30 ) mGycm This CT exam was performed using one or more of the following dose reduction techniques: automated exposure control, adjustment of the mA and/or kV according to patient size, and/or use of iterative reconstruction technique. This report was created using [employer] report generation technology. CONTRAST: IV 100mL Isovue-370 COMPARISON: None. FINDINGS: LOWER THORAX: Lung bases are clear. No cardiomegaly. No significant pericardial effusion. ABDOMEN: LIVER: Unremarkable. Homogeneous. No focal mass. GALLBLADDER AND BILE DUCTS: Unremarkable. No calcified gallstones. No gallbladder distention or wall edema. No intra- or extrahepatic biliary ductal dilation. PANCREAS: Unremarkable. No focal cystic or solid mass. SPLEEN: Unremarkable. Normal size without focal cystic or solid mass. ADRENALS: Unremarkable. No nodules. KIDNEYS AND URETERS: Small cyst at the upper and lower pole of the left kidney. No other renal abnormalities. No hydronephrosis. STOMACH AND BOWEL: Unremarkable. No focal inflammatory change. No acute or inflammatory disease or bowel obstruction. PELVIS: APPENDIX: No evidence of acute appendicitis. BLADDER: Unremarkable. REPRODUCTIVE: Unremarkable as visualized. No mass. ABDOMEN and PELVIS: INTRAPERITONEAL SPACE: Unremarkable. No free air. No free fluid or free fluid. BONES/JOINTS: Unremarkable. No unusual lytic or sclerotic lesions of bone. SOFT TISSUES: Evidence of prior umbilical hernia repair. VASCULATURE: Unremarkable. Abdominal aorta is non-dilated. LYMPH NODES: Surgical anastomosis involving the sigmoid colon with no adjacent mass or adenopathy. CT/Abdomen/Pelvis W IV Cont ONLY IMPRESSION: 1. Surgical anastomosis involving the sigmoid colon with no adjacent mass or adenopathy. 2. No evidence for metastatic disease. Electronically Signed: Basilio Montgomery MD at 22:03 EST ,
[2022-08-07 18:15] LABS: EGFR FINGERSTICK > 60.0000 mL/min (>60)
== END | disposition home or self-care (01) ==
PROVIDERS: PCP Family Medicine; Referring Provider Internal Medicine Medical Oncology; Visit Provider Internal Medicine Medical Oncology
DX: C18.7 Malignant neoplasm of sigmoid colon (principal)
CPT/HCPCS: 74177; Q9967

== ENCOUNTER → 2022-08-12 | Outpatient (CLI) | payer BC, SELFPAY ==
--- NOTE | 2022-08-12 16:35 | RAD_ITS ---
STUDY: X-RAY CHEST REASON FOR EXAM: Male, 56 years old. Chest pain/pressure, history of colon CA TECHNIQUE: 2 PA and lateral views of the chest. COMPARISON: 05/30/2021 FINDINGS: The lungs are clear and expanded. There is no demonstrated pleural abnormality. Normal size heart. Normal mediastinum and kranthi. Normal visualized pulmonary arteries. Normal visualized aortic arch and descending thoracic aorta. Normal visualized thoracic spine. Normal visualized ribs, clavicles, and shoulders. There is no demonstrated abnormality of the visualized soft tissue structures of the upper abdomen. RAD/Chest PA and Lateral IMPRESSION: No acute pulmonary process, no interval change Electronically Signed: John Duff MD at 8:17 EDT ,
== END | disposition home or self-care (01) ==
PROVIDERS: PCP Family Medicine; Visit Provider Internal Medicine Medical Oncology
DX: C18.7 Malignant neoplasm of sigmoid colon (principal)
CPT/HCPCS: 71046

== ENCOUNTER 2023-01-27 16:22 | Emergency (ER) | payer BC, SELFPAY ==
[2023-01-27 16:23] VITALS: BP 136/97; PULSE 110; RESP 18; TEMP 36.4; O2SAT 97; BMI 32.3
--- NOTE | 2023-01-27 17:02 | ED.VIS.LOWEX ---
HPI History of Present Illness Chief Complaint: Lower Extremity Injury Informant: patient Narrative Narrative: Patient presents with an area of redness and soreness on his right distal medial thigh. Patient states he first noticed a little soreness in the area 4 days ago. He has then developed a little erythema in the area. No fevers chills sweats nausea or vomiting. No pain with motion of the knee. This is not in the knee joint but its proximal and medial to the knee. He denies any trauma or exposure of different chemicals or clothing. Of note, the patient is diabetic but has been out of his meds for some time. But he denies polyuria or polydipsia. He has not checked his sugar in quite some time. He was on thousand twice daily of metformin and 2 mg of glimepiride a day. We will check his blood sugar and write for these meds. 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 Diabetes GERD (gastroesophageal reflux disease) Kidney stones Vertigo Home Medications metformin 1,000 mg tablet 1,000 mg PO BID 02/09/19 [History Last Taken 04/28/19 12:00] glimepiride 2 mg tablet 2 mg PO DAILY 08/09/19 [History Last Taken Unknown] cephalexin 500 mg capsule 500 mg PO Q6 #40 CAPSULES 01/27/23 [Rx Last Taken Unknown] metformin 1,000 mg tablet 1,000 mg PO BID #60 tabs 01/27/23 [Rx Last Taken Unknown] Allergy/AdvReac Type Severity Reaction Status Date / Time No Known Allergies Allergy Verified 01/27/23 16:23 Family History Mother Diabetes CVA (cerebral vascular accident) Father Diabetes Hypertension Surgical History H/O umbilical hernia repair History of appendectomy History of colonoscopy Hx of foot surgery S/P colectomy s/p insertion vascular port (~07/25/17) Social History Smoking Status: Never smoker alcohol intake: never substance use type: does not use ROS ROS ED Constitutional Constitutional ED: Denies chills, fever(s), subjective, sweats or weight loss Cardiovascular Cardiovascular: Denies chest pain or palpitations Respiratory/Chest Respiratory/Chest: Denies cough or dyspnea Gastrointestinal Gastrointestinal: Denies abdominal pain, nausea or vomiting Genitourinary Genitourinary ED: Denies urinary frequency Musculoskeletal Musculoskeletal: Denies myalgias Integumentary Reports rash; Denies abscess Endocrine Endocrinology: Denies polydipsia or polyuria Hematologic/Lymphatic Hematologic/Lymphatic: Denies easy bleeding, easy bruising or lymphadenopathy EXAM Physical Exam Narrative Exam Narrative: Patient awake alert no acute distress sitting comfortably in bed. HEENT shows no trauma. Mucous membranes do still appear to be moist. Neck supple. Heart is regular I only get a rate of about 85 on my exam while he sitting here. Pulses are normal including in the right leg. Lungs are clear bilaterally and saturation is normal at 97% on room air showing no hypoxia. Abdomen is soft completely nontender. Extremities show no edema. He does have a area of erythema about the size of his palm on the distal medial thigh. This is just proximal to the knee. He has no effusion. No knee pain. No pain with motion of his knee. There is absolutely 0 indication of intra-articular involvement. There is a firm area under this but its not palpable as an abscess. There is a little varicosity near the but he thinks that is old. Clinically this looks like the start of an area of cellulitis. But as it is near deep vein and has a varicosity we will get ultrasound. Const Vital Signs: 01/27/23 16:23 Temperature 97.6 F L Temperature Source Temporal Pulse Rate 110 H Respiratory Rate 18 Blood Pressure 136/97 H Blood Pressure Mean 110 Pulse Ox 97 Oxygen Delivery Method Room Air MDM MDM MDM Narrative Medical decision making narrative: Patient's ultrasound of the right leg shows Patient's BG T was 251. With the erythema and some mild now warmth, no other indication of cause, we will treat this as early cellulitis. I see no abscess formation so we will use cephalexin. He has no allergies. With his blood sugar up we will restart him on metformin. I think starting both of his prior meds when he is only 250 may be too much. Lab Data Attestation: I reviewed the patient's lab results. Labs: Laboratory Results - last 24 hr 01/27/23 18:30 POC Glucose 251 H Discharge Plan Triage Chief Complaint: Lower Extremity Injury ED Provider: Magdy Lee Dx/Rx/DC Orders Clinical Impression: Cellulitis of right thigh, Hyperglycemia Instructions: ED Cellulitis Prescriptions: New cephalexin [cephalexin] 500 mg capsule 500 mg PO Q6 Qty: 40 0RF metformin 1,000 mg tablet 1,000 mg PO BID Qty: 60 0RF No Action metformin 1,000 MG tablet 1,000 mg PO BID glimepiride 2 MG tablet 2 mg PO DAILY Primary Care Provider: Ema Hubbard Referrals: Ema Hubbard, DO [Primary Care Provider] - Disposition Disposition: Home, Self Care
--- NOTE | 2023-01-27 17:54 | US_ITS ---
STUDY: VENOUS DOPPLER ULTRASOUND - RIGHT LOWER EXTREMITY REASON FOR EXAM: Male, 57 years old. pain and swelling rt knee TECHNIQUE: Ultrasound evaluation of the deep vein system to include alberto-scale imaging and compression was performed. Alberto-scale imaging and Doppler sonographic evaluation, including duplex spectral analysis and qualitative color flow sonography, was performed. COMPARISON: None. FINDINGS: Common Femoral Vein: Normal compression, spontaneity and augmentation. Normal color Doppler. Common Femoral Vein/Greater Saphenous Junction: Normal compression, spontaneity and augmentation. Normal color Doppler. Deep Femoral Vein: Normal compression, spontaneity and augmentation. Normal color Doppler. Femoral Proximal: Normal compression, spontaneity and augmentation. Normal color Doppler. Femoral Middle: Normal compression, spontaneity and augmentation. Normal color Doppler. Femoral Distal: Normal compression, spontaneity and augmentation. Normal color Doppler. Popliteal Vein: Normal compression, spontaneity and augmentation. Normal color Doppler. Posterior Tibial Vein: Normal compression, spontaneity and augmentation. Normal color Doppler. Peroneal Vein: Normal compression, spontaneity and augmentation. Normal color Doppler. US/Venous Duplex Imag/Limited/Uni IMPRESSION: Normal venous Doppler ultrasound of the lower extremity. Electronically Signed: Al Cotter MD at 20:39 EDT ,
[2023-01-27 18:47] LABS: Bedside Glucose 251 mg/dL (74-106)
[2023-01-27] MEDS: Cephalexin 250 MG Capsule 500 MG PO (20:24)
== END 2023-01-27 21:09 | disposition home or self-care (01) ==
PROVIDERS: Emergency Provider Emergency Medicine; PCP Family Medicine; Visit Provider Emergency Medicine
DX: L03.115 Cellulitis of right lower limb (principal); E11.65 Type 2 diabetes mellitus with hyperglycemia; Z90.49 Acquired absence of other specified parts of digestive tract
CPT/HCPCS: 82962; 93971; 99283

== ENCOUNTER → 2023-08-04 | Outpatient (CLI) | payer BC, SELFPAY ==
--- NOTE | 2023-08-04 16:22 | CT_ITS ---
STUDY: CT ABDOMEN AND PELVIS WITH CONTRAST REASON FOR EXAM: Male, 57 years old. HX OF COLON CA RADIATION DOSAGE (If Supplied By Facility): CTDIvol = ( 16.17 ) mGy, DLP = ( 1210.20 ) mGycm TECHNIQUE: IV 100mL Isovue-300 was administered. Transaxial images were obtained from the dome of the diaphragm to the symphysis pubis in the arterial, nephrographic and excretory phases. Multiplanar coronal and sagittal images were reformatted. Individualized Dose Optimization Techniques Were Used For This CT. COMPARISON: No relevant prior comparison study available FINDINGS: The visualized lung bases are unremarkable. The visualized portions of the heart are within normal limits. Vague visualized enhancing indication in the peripheral aspect of the left lobe of the liver measuring about 1.7 cm could be due to hemangioma (axial image 23 series 2 and coronal image 32 series 601). The liver otherwise is unremarkable Normal gallbladder and extrahepatic biliary system. Mild splenomegaly. The spleen measures about 15 cm. Normal pancreas. Normal bilateral adrenal glands. Normal visualized stomach. Normal small intestine. Surgical anastomosis sutures in the rectosigmoid junction. No evidence of acute diverticulitis. Probable previous appendectomy. Normal abdominal aorta. No retroperitoneal adenopathy. 8 mm simple cyst in the upper pole of the left kidney for which no further follow-up exam is needed. No evidence of hydronephrosis. Normal urinary bladder. Normal abdominal wall. Mild degenerative changes. No lytic or osteoblastic lesions are seen. CT/Abdomen/Pelvis W IV Cont ONLY IMPRESSION: 1. Enhancing lesion in the peripheral left lobe of the liver could be due to hemangioma however in the presence of history of colon cancer, correlation with PET scan or MRI with contrast is recommended to rule out metastases. 2. Otherwise no focal acute inflammatory process. Electronically Signed: Zohaib Sosa MD at 10:17 EST ,
[2023-08-04 16:59] LABS: Absolute Lymphocyte Count 2.25 X10^3/uL (0.83-4.51); Basophil# 0.05 X10^3/uL; Basophil% 0.6 % (0-1); Eosinophil# 0.08 X10^3/uL; Eosinophils% 0.9 % (0-5); Hematocrit 45.2 % (40-54); Hemoglobin 15.9 g/dL (13.0-16.5); Lymphocyte # 2.25 X10^3/ul (0.83-4.51); Lymphocyte % 24.8 % (19-41); Mean Corp Hgb Conc 35.2 g/dL (32-36); Mean Corpuscular Hgb 29.2 pg (27.0-32.0); Mean Corpuscular Volume 82.9 fL (80-94); Mean Platelet Vol. 9.4 fl (6.2-12.0); Monocyte# 0.65 X10^3/uL; Monocyte% 7.2 % (0-10); NRBC Flagged by Analyzer 0 % (0-5); Neutrophil # 6.02 X10^3/uL (2.7-7.7); Neutrophil % 66.3 % (47-70); Platelet Count 222 K/mm3 (150-450); RBC Distribution Width CV 13.2 % (11.6-14.6); RBC Distribution Width SD 39.5 fl (35.1-43.9); Red Blood Count 5.45 M/mm3 (4.6-6.2); White Blood Count 9.1 K/mm3 (4.4-11.0)
[2023-08-04 17:04] LABS: CREATININE FINGERSTICK < 1.0 mg/dL (0.70-1.30); EGFR FINGERSTICK > 60.0000 mL/min (>60)
[2023-08-04 18:35] LABS: ALB/GLOB Ratio 0.9 RATIO (0.9-2.4); AST(SGOT) 23 U/L (15-37); Alanine Aminotransfer ALT/SGPT 34 U/L (16-61); Albumin, Serum 3.5 g/dL (3.2-5.0); Alkaline Phosphatase 129 U/L (45-117); Anion Gap 5 (5-15); BUN 14 mg/dL (7-18); BUN/Creat Ratio 15.2 RATIO (10-20); Calcium,Total 9.5 mg/dL (8.5-10.1); Chloride 102 mmol/L (98-107); Creatinine, Serum 0.92 mg/dL (0.70-1.30); EST Glomerular Filtration Rate 89 mL/min (>60); Est Glom Filt Rate - Afr Amer 108 mL/min (>60); Globulin 3.8 g/dL (2.2-4.2); Glucose 291 mg/dL (74-106); LDH 196 U/L (87-241); Potassium 3.8 mmol/L (3.5-5.1); Protein, Total 7.3 g/dL (6.4-8.2); Sodium Level 135 mmol/L (136-145)
[2023-08-06 08:12] LABS: Carcinoembryonic Antigen 2.2 ng/mL (0.0-4.7)
== END | disposition home or self-care (01) ==
PROVIDERS: PCP Family Medicine; Referring Provider Internal Medicine Medical Oncology; Visit Provider Internal Medicine Medical Oncology
DX: C18.7 Malignant neoplasm of sigmoid colon (principal)
CPT/HCPCS: 36415; 74177; 80053; 82378; 83615; 85025; Q9967